=== PATIENT | male | born 1995 | race Caucasian/White ===

== ENCOUNTER 2025-09-13 21:06 | Inpatient (IN) | payer BC, SELFPAY ==
[2025-09-13 21:08] VITALS: BP 117/75; PULSE 136; RESP 20; TEMP 37.2; O2SAT 95; BMI 29.9
[2025-09-13] MEDS: 0.9% Normal Saline (1000mL) 1,000 ML 999 ML IV ×2 (22:28→23:27)
[2025-09-13 22:45] LABS: Hematocrit 49.5 % (40-54); Hemoglobin 17.3 g/dL (13.0-16.5); Immature Granulocytes Count 0.050 X10^3/uL (0.0-0.0); Mean Corp Hgb Conc 34.9 g/dL (32-36); Mean Corpuscular Volume 84.6 fL (80-94); Mean Platelet Vol. 11.7 fl (6.2-12.0); NRBC Flagged by Analyzer 0 % (0-5); POSITIVE DIFFERENTIAL YES; Platelet Count 275 K/mm3 (150-450); RBC Distribution Width CV 12.0 % (11.6-14.6); RBC Distribution Width SD 37.0 fl (35.1-43.9); Red Blood Count 5.85 M/mm3 (4.6-6.2); White Blood Count 13.9 K/mm3 (4.4-11.0)
[2025-09-13 22:54] LABS: AST(SGOT) 31 U/L (<=37); Alanine Aminotransfer ALT/SGPT 38 U/L (<=46); Albumin, Serum 4.2 g/dL (3.5-5.0); Alkaline Phosphatase 56 U/L (40-129); Anion Gap 15 (5-15); BUN 24 mg/dL (4-19); BUN/Creat Ratio 13.3 RATIO (10-20); Bilirubin, Direct 0.44 mg/dL (0.00-0.30); Calcium,Total 8.9 mg/dL (7.6-11.0); Carbon Dioxide 17.4 mmol/L (21.0-32.0); Chloride 102 mmol/L (98-108); Estimated Creatinine Clearance 60.01 ml/min (50-250); Globulin 2.6 g/dL (2.2-4.2); Glucose 138 mg/dL (70-99); Lipase 16 U/L (13-75); Magnesium 1.3 mg/dL (1.5-2.2); Potassium 3.8 mmol/L (3.3-5.1); Procalcitonin 18.60 ng/mL (<=0.10)
--- NOTE | 2025-09-13 23:09 | EX.ED.DYSGE1 ---
HPI History of Present Illness Chief Complaint: Diarrhea Informant: patient and family Narrative Narrative: This is patient is a 29-year-old male with past medical history of adrenal insufficiency. He states in the last 24 hours he has had subjective fevers and chills with generalized abdominal discomfort and multiple bouts of watery diarrhea. He denies any known sick contact. He denies any recent antibiotic use travel out of the country or exposure to livestock. He states he took stress dose steroids today because he was feeling unwell with symptoms of not improved and secondary to this he comes in for evaluation. [facility] Medical History Growth hormone deficiency Asthma Adrenal insufficiency Allergy/AdvReac Type Severity Reaction Status Date / Time Fish Containing Products Allergy Food Verified 09/13/25 21:25 Allergy milk (dairy) Allergy Food Verified 09/13/25 21:25 Allergy nut - unspecified (nuts) Allergy Food Verified 09/13/25 21: Allergy shellfish derived Allergy Hives Verified 09/13/25 21:25 Social History Smoking Status: Never smoker ROS [facility] ED Constitutional Constitutional ED: Reports chills, fever(s) and subjective Eyes Eyes: Denies change in vision ENT ENT ED: Denies sore throat Cardiovascular Cardiovascular: Denies chest pain Respiratory/Chest Respiratory/Chest: Denies cough or dyspnea Gastrointestinal Gastrointestinal: Reports abdominal pain, diarrhea, nausea and vomiting Genitourinary Genitourinary ED: Denies dysuria Musculoskeletal Musculoskeletal: Reports myalgias Integumentary Denies rash Neurologic Neurologic: Denies headache(s) Hematologic/Lymphatic Hematologic/Lymphatic: Denies easy bleeding or easy bruising EXAM Physical Exam Const Vital Signs: 09/13/25 21:08 09/13/25 23:28 Temperature 98.9 F Temperature Source Temporal Pulse Rate 136 H 125 H Respiratory Rate 20 H 16 Blood Pressure 117/75 113/65 Blood Pressure Mean 89 81 Pulse Ox 95 100 Oxygen Delivery Method Room Air Positive well nourished and well developed General Appearance ED: well developed; Negative for pallor HEENT Reports dry mucous membranes HEENT Narrative: Normocephalic atraumatic No tongue or lip swelling no oral lesions no airway edema or compromise No secondary findings in the posterior pharynx to suggest infection Mucous membranes are dry and tacky Mouth ED: Yes dry mucous membranes Mouth: dry mucous membranes Eyes PERRL and EOMs intact bilaterally General Eye ED: Negative for scleral icterus Neck supple Neck Narrative: No nuchal rigidity or meningeal signs Resp normal respiratory effort and clear to auscultation bilaterally Cardio regular rhythm Rate: tachycardic and other Other Details: Tachycardic rate irregular rhythm Radial and carotid pulses equal and symmetric GI non-distended and no masses GI Narrative: Soft and nondistended with hyperactive bowel sounds. There is mild diffuse pain with palpation without voluntary guarding or rigidity or pulsatile mass No peritoneal signs Auscultation: hyperactive bowel sounds Palpation: soft Extremity normal to inspection Neuro oriented x3, CN's II-XII intact bilaterally and no sensory deficits noted Sensorium / Orientation: alert Motor Exam: strength 5/5 throughout Psych mental status grossly normal Skin no rashes or lesions noted and No skin turgor normal Skin Narrative: Skin turgor is elevated consistent with dehydration General Skin Exam: Negative for jaundice or pallor MDM MDM MDM Narrative Medical decision making narrative: Patient arrived to ER afebrile but tachycardic. History and exam is most consistent with a viral stomach infection such as norovirus or rotavirus. He does not have any risk factors for cluster B difficile Salmonella Shigella or E. coli and he is only had symptoms for roughly 24 hours so I feel no need for stool study at this time. In order to assess for acute blood loss anemia versus acute kidney injury versus Ruth abnormality biliary colic or pancreatitis I did like to perform basic laboratory studies. Patient's white count is elevated at 13.9 and neutrophil count is elevated 12.6. This is most likely stress response and inflammation secondary to the virus. His procalcitonin however is elevated and with this there is concern for potential developing internal infection so I do feel that a CT scan of the abdomen pelvis is warranted at this time. Lipase is normal going against pancreatitis and there are no clinically significant electrolyte changes. His creatinine is 1.82 consistent with dehydration. At this time he has had 2 L of IV fluid morphine and Zofran and does report feeling better. Abdomen remains soft and nonsurgical. However because of the elevated procalcitonin the CT scan with oral contrast only is pending and therefore he will be signed out to the night physician Dr. Prado pending this result History & Record Review Discussion w/independent historian: Patient and Family Lab Data Attestation: I reviewed the patient's lab results. Labs: Laboratory Results - last 24 hr 09/13/25 21:44 WBC 13.9 H RBC 5.85 Hgb 17.3 H Hct 49.5 MCV 84.6 MCH 29.6 MCHC 34.9 RDW Std Deviation 37.0 RDW Coeff of Fatoumata 12.0 Plt Count 275 MPV 11.7 Immature Gran % (Auto) 0.400 Neut % (Auto) 90.2 H Lymph % (Auto) 2.9 L [place] % (Auto) 4.4 Eos % (Auto) 1.4 Baso % (Auto) 0.7 Absolute Neuts (auto) 12.6 H Absolute Lymphs (auto) 0.41 L Nucleated RBC % 0 Sodium 134 Potassium 3.8 Chloride 102 Carbon Dioxide 17.4 L Anion Gap 15 BUN 24 H Creatinine 1.82 H Estim Creat Clear Calc 60.01 Est GFR (MDRD) Non-Af 52 L BUN/Creatinine Ratio 13.3 Glucose 138 H Calcium 8.9 Magnesium 1.3 L Total Bilirubin 0.98 Direct Bilirubin 0.44 H AST 31 ALT 38 Alkaline Phosphatase 56 Total Protein 6.8 Albumin 4.2 Globulin 2.6 Lipase 16 Procalcitonin 18.60 H Discharge Plan Triage Chief Complaint: Diarrhea ED Provider: Alfredo Elmore Dx/Rx/DC Orders Clinical Impression: Nausea vomiting and diarrhea, Dehydration Primary Care Provider: Care Physician,No Primary Referrals: Care Physician,No Primary [Primary Care Provider, Medical] Print Language: Faroese
[2025-09-13 23:28] VITALS: BP 113/65; PULSE 125; RESP 16; O2SAT 100
--- NOTE | 2025-09-13 23:34 | CT_ITS ---
PROCEDURE: ABDOMEN/PEL W ORAL CONT ONLY 09/14/2025 REASON FOR EXAM: ABD PAIN TECHNIQUE: Procedure Code: [id number] Modality: CT Procedure: ABDOMEN/PEL W ORAL CONT ONLY Noncontrast technique limits evaluation of the abdominal and pelvic viscera. Coronal and Sagittal reconstruction series were provided. One or more dose reduction techniques were used (e.g., Automated exposure control, adjustment of the mA and/or kV according to patient size, use of iterative reconstruction technique). RADIATION DOSE SUMMARY: CTDI Vol 13.71 mGy DLP :713.64 mGycm COMPARISON: none FINDINGS: Diffuse uniform wall thickening and edema with fluid dimension of the terminal ileum, caecum, ascending and proximal 2/3 of the transverse colon with mild surrounding fat stranding and associated prominent ileocolic and mesenteric lymph nodes, possibly inflammatory. Advise clinical and laboratory correlation. The appendix appears unremarkable. The stomach is unremarkable. Average sized liver showing homogenous parenchymal attenuation. No dilated intra or extra-hepatic biliary tracts. Gall bladder showing no radiodense calculi. Normal unenhanced appearance of the pancreas with clear surrounding fat planes. The unenhanced spleen, adrenal glands, aorta and IVC are unremarkable. Both kidneys are of average size and showing smooth outline with preserved parenchymal thickness. No renal calculi. No hydronephrosis. Distension of the urinary bladder showing no obvious masses. No obvious masses related to the pelvic viscera. Mild free pelvic fluid No free air. Scanned osseous structures show no osseous destruction. Scanned lung bases show left basal atelectatic changes. CT/Abdomen/Pel W ORAL Cont Only IMPRESSION: Diffuse uniform wall thickening and edema with fluid dimension of the terminal ileum, caecum, ascending and proximal 2/3 of the transverse colon with mild surrounding fat stranding and associated prominent i leocolic and mesenteric lymph nodes, possibly inflammatory. Advise clinical and laboratory correlation. Reading [facility]
[2025-09-14] VITALS (12 sets, daily range): BP systolic 110–130; BP diastolic 69–83; PULSE 108–153; RESP 15–33; TEMP 37.1–39.4; O2SAT 92–98; BMI 28.8
[2025-09-14] MEDS: 0.9% Normal Saline (1000mL) 1,000 ML 999 ML IV (04:08)
--- NOTE | 2025-09-14 04:39 | PCM.HP.STD ---
HPI - General General Date of Admission: 09/14/25 Date of Service: 09/14/25 Chief Complaint: Nausea/vomiting/diarrhea HPI Narrative LONNY ROLLINS, is a 29 M who presented to the emergency department [facility] on 09/13/2025 with chief complaint of intractable nausea with an episode of emesis and profuse watery diarrhea. Patient said no known sick contacts. He does have a history of adrenal insufficiency and is on hydrocortisone twice daily at baseline. He has had subjective fevers and chills, generalized body aches and abdominal discomfort with at least 3 bouts of watery diarrhea per hour. He has had no recent travel or antibiotic use. He did take an extra dose of steroids prior to coming in due to being ill but since he has not improved clinically presented to the emergency department. He states that his abdominal discomfort is hard to describe over the crampy in nature and intermittent. Vital signs on presentation showed temperature of 98.9, heart rate 136, respiratory 20, blood pressure is 117/75 and pulse ox was 94% on room air. CBC showed a leukocytosis with a white count of 13.9 and he does appear to be hemoconcentrated as his hemoglobin was 17.3. He does have a left shift with a 90.2% neutrophilia. Chemistry panel showed mild metabolic acidosis with a serum bicarb of 17.4, BUN of 24 with a serum creatinine 1.82 indicative of dehydration and BIENVENIDO, lactic acid was less than 1, magnesium of 1.3 and a mildly elevated direct bilirubin with a normal total bilirubin. Direct bilirubin was 0.44. Liver functions were normal. Lipase was 16. TSH was 0.635 and procalcitonin was 18.6. CT of the abdomen pelvis with oral contrast showed diffuse uniform wall thickening and edema and fluid distention of the terminal ileum, cecum, ascending and proximal two thirds of the transverse colon with mild surrounding fat stranding and associated prominent ileocolic and mesenteric lymph nodes that were thought to be inflammatory. In the emergency department he was treated with aggressive IV fluids, antiemetics and his heart rate remained elevated. Given his elevated procalcitonin ongoing tachycardia and diarrhea with his history of adrenal insufficiency inpatient status admission was pursued. He was started on vancomycin and Zosyn after cultures were obtained and oral vancomycin empirically for potential C. difficile infection. Stool studies were ordered and pending at the time of admission. [facility] Medical History (Updated 09/14/25 @ 05:[address] Yadi Yen, DO) Male pattern baldness Allergies GERD (gastroesophageal reflux disease) Eosinophilic esophagitis Growth hormone deficiency Asthma Adrenal insufficiency Home Medications ?Medication ?Instructions ?Recorded ?Last Taken ?Type cetirizine 10 mg tablet (24Hour 10 mg PO DAILY allergies 09/14/25 Unknown History Allergy) finasteride 1 mg tablet 1 mg PO DAILY urine flow 09/14/25 Unknown History fluticasone furoate 200 1 inh inhalation DAILY asthma 09/14/25 Unknown History mcg-vilanterol 25 mcg/dose inhalation powder (Breo Ellipta) hydrocortisone 5 mg tablet 5 mg PO 1400 adrenal insufficiency 09/14/25 Unknown History hydrocortisone 5 mg tablet 10 mg PO DAILY adrenal 09/14/25 Unknown History insufficiency minoxidil 2.5 mg tablet 1.25 mg PO DAILY hairloss 09/14/25 Unknown History mometasone 50 mcg/actuation nasal 4 spray intranasal DAILY allergies 09/14/25 Unknown History spray montelukast 10 mg tablet 10 mg PO QPM allergies 09/14/25 Unknown History pantoprazole 40 mg tablet,delayed 40 mg PO BID GERD 09/14/25 Unknown History release Allergy/AdvReac Type Severity Reaction Status Date / Time Fish Containing Products Allergy Food Verified 09/13/25 21:25 Allergy milk (dairy) Allergy Food Verified 09/13/25 21:25 Allergy nut - unspecified (nuts) Allergy Food Verified 09/13/25 21:25 Allergy shellfish derived Allergy Hives Verified 09/13/25 21:25 no significant family history no surgical history Social History (Updated 09/14/25 @ 05:[address] Yadi Yen, ) current occupational status: employed Smoking Status: Never smoker alcohol intake: never substance use type: does not use ROS Constitutional Constitutional: Reports anorexia, chills, fatigue, fever(s), malaise and weakness; Denies change in weight, night sweats or other Eyes Eyes: Denies blurry vision, change in eye color, change in vision, discharge from eye(s), double vision, erythema, eye pain, loss of vision or other ENT HEENT: Denies abnormal hearing, dysphagia, ear pain, epistaxis, headache(s), hearing loss, nasal congestion, nasal discharge, post nasal drip, sinus pressure, sore throat or other Cardiovascular Cardiovascular: Denies chest pain, claudication, dyspnea on exertion, edema, lightheadedness, orthopnea, palpitations, paroxysmal nocturnal dyspnea, rapid heart rate, syncope or other Respiratory/Chest Respiratory/Chest: Denies cough, dyspnea, excessive phlegm production, hemoptysis, productive cough, shortness of breath at rest, shortness of breath with exertion, wheezing or other Gastrointestinal Gastrointestinal: Reports abdominal pain, diarrhea, nausea and vomiting; Denies coffee ground emesis, constipation, dyspepsia, hematemesis, hematochezia, loose stools, melena or other Genitourinary Genitourinary: Denies burning urination, difficulty urinating, dysuria, hematuria, nocturia, urinary frequency, urinary hesitancy, urinary incontinence, urinary urgency or other Musculoskeletal Musculoskeletal: Reports myalgias; Denies arthralgias, back pain, joint pain, joint stiffness, joint swelling, neck pain or other Neurologic Neurologic: Denies abnormal gait, abnormal speech, confusion, disequilibrium, dizziness, focal weakness, headache(s), numbness, paresthesias, seizure-like activity, seizures, syncope, tingling, tremor(s) or other Psychiatric Psychiatric: Denies anxiety, depression, homicidal ideation, suicidal ideation or other Endocrine Endocrinology: Denies change in body appearance, cold intolerance, excessive sweating, heat intolerance, polydipsia, polyuria or other Hematologic/Lymphatic Hematologic/Lymphatic: Denies anemia, easy bleeding, easy bruising, lymphadenopathy or other Allergic/Immunologic Allergic/Immunologic: Reports rhinitis and asthma; Denies hives, eczemia or other Vital Signs Vital Signs Vital Signs: 09/13/25 21:08 09/13/25 23:28 09/14/25 01:29 Temperature 98.9 F Temperature Source Temporal Pulse Rate 136 H 125 H Respiratory Rate 20 H 16 Blood Pressure 117/75 113/65 Blood Pressure Mean 89 81 Pulse Ox 95 100 92 Oxygen Delivery Method Room Air 09/14/25 03:00 09/14/25 03:59 Temperature Temperature Source Pulse Rate 139 H 147 H Respiratory Rate 26 H 26 H Blood Pressure 111/69 110/70 Blood Pressure Mean 83 83 Pulse Ox 93 97 Oxygen Delivery Method Room Air Room Air Weight Weight: 81.737 kg Body Mass Index (BMI) 29.9 Physical Exam Const alert, oriented x3 and well nourished Constitutional Narrative: Obese, ill-appearing, young, white male, lying in bed, appears mild to moderately uncomfortable, appears mildly toxic, nursing and family at bedside General Appearance: cooperative HEENT normocephalic, head/scalp atraumatic and hearing grossly normal bilaterally; Negative for moist oral mucous membranes HEENT Narrative: Mucous membranes are moist, dentition is good, Mallampati is 3, no thrush Eyes EOMs intact bilaterally and conjunctivae normal Eyes Narrative: No scleral icterus Neck supple Neck Narrative: Trachea midline Resp normal respiratory effort, no retractions, no use of accessory muscles and clear to auscultation bilaterally Resp Narrative: Mild tachypnea Auscultation: Negative for rales, rhonchi or wheezes Cardio regular rhythm, S1 normal heart sound, S2 normal heart sound, no murmurs, no rub, no gallops and no clicks Cardio Narrative: Tachycardic GI normal to inspection, nondistended, normoactive bowel sounds and soft to palpation GI Narrative: Mild diffuse tenderness more noted at caudal abdomen Extremity no clubbing, cyanosis or edema Extremity Narrative: Pedal pulses are 2+ Neuro moves all extremities and no focal motor deficits Speech: speech normal Psych Negative for affect normal Psych Narrative: Affect is flat which is expected for current condition Results Lab / Micro Data 09/13/25 21:44 09/13/25 21:44 Labs: Laboratory Results - last 24 hr 09/13/25 21:44: WBC 13.9 H, RBC 5.85, Hgb 17.3 H, Hct 49.5, MCV 84.6, MCH 29.6, MCHC 34.9, RDW Std Deviation 37.0, RDW Coeff of Fatoumata 12.0, Plt Count 275, MPV 11.7, Immature Gran % (Auto) 0.400, Neut % (Auto) 90.2 H, Lymph % (Auto) 2.9 L, [place] % (Auto) 4.4, Eos % (Auto) 1.4, Baso % (Auto) 0.7, Absolute Neuts (auto) 12.6 H, Absolute Lymphs (auto) 0.41 L, Nucleated RBC % 0, Sodium 134, Potassium 3.8, Chloride 102, Carbon Dioxide 17.4 L, Anion Gap 15, BUN 24 H, Creatinine 1.82 H, Estim Creat Clear Calc 60.01, Est GFR (MDRD) Non-Af 52 L, BUN/Creatinine Ratio 13.3, Glucose 138 H, Calcium 8.9, Magnesium 1.3 L, Total Bilirubin 0.98, Direct Bilirubin 0.44 H, AST 31, ALT 38, Alkaline Phosphatase 56, Total Protein 6.8, Albumin 4.2, Globulin 2.6, Lipase 16, Procalcitonin 18.60 H Imaging Radiology Impression Abdomen CT 09/13/25 23:34 IMPRESSION: Diffuse uniform wall thickening and edema with fluid dimension of the terminal ileum, caecum, ascending and proximal 2/3 of the transverse colon with mild surrounding fat stranding and associated prominent ileocolic and mesenteric lymph nodes, possibly inflammatory. Advise clinical and laboratory correlation. Reading [facility] Assessment & Plan Assessment/Plan (1) Nausea vomiting and diarrhea: (2) Dehydration: (3) BIENVENIDO (acute kidney injury): (4) Hypomagnesemia: (5) Metabolic acidosis: (6) Elevated procalcitonin: (7) Tachycardia: (8) Leukocytosis: PLAN: Plan Nausea/vomiting/diarrhea/abdominal pain - Has significant inflammatory changes in distal small bowel and colon - Check C. difficile and enteric panel - Will empirically treat for C. difficile at this time given clinical presentation and discontinue if negative - IV fluids x 3 L at 150 cc/h - Antiemetics as ordered - IV morphine for pain - Protonix 40 mg IV twice daily - Clear liquids for now and plan to advance diet as tolerated Fever/elevated procalcitonin/leukocytosis - Leukocytosis appears to be related to contraction as he is markedly dehydrated on presentation and with increased steroid use I suspect this will trend up - Procalcitonin was markedly elevated - Cultures are pending - No significant infectious process identified on CT of his abdomen pelvis - Continue Zosyn IV and oral vancomycin - Discontinue/narrow antibiotics as able Hypomagnesemia - 2 g mag bolus given - Recheck lab in a.m. BIENVENIDO secondary to severe dehydration - Aggressive volume resuscitation - Continue IV fluids on the floor and 150 cc/h with LR x 3 L - Avoid nephrotoxins as able - Repeat lab in a.m. Non-anion gap metabolic acidosis - Likely related to severe diarrhea and BIENVENIDO - Monitor with lab - Currently only mild Tachycardia - Significant but sinus - Appears to be reactive - IV fluids as ordered - Avoid rate controlling medications as this is purposeful tachycardia and appropriate for current condition Adrenal insufficiency - Patient is on hydrocortisone at home with 5 mg in the afternoon and 10 mg in the morning -Stress dose should be twice this - Will treat with stress dose steroids 25 mg Solu-Cortef twice daily - Monitor clinically - Currently does not appear to be in crisis Eosinophilic esophagitis/GERD - Continue budesonide - IV PPI Multiple food allergies - Will need to be conscious of this when diet is able to be initiated Asthma/allergies - Continue home inhalers - Continue home Singulair 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
--- OUTSIDE RECORDS SUMMARY | 2025-09-14 05:02 | XMS RPT_ITS | CCD ---
Author Organization [facility] Care Team Providers Care Ophthalmic Surgeon Name Role Phone Unavailable Primary Care Provider ENMANUEL Ross Primary Care Unavailable Allergies Allergy Classification Reported Allergen(s) Allergy Type Date of Onset Reaction(s) Facility (1 source) Banana Extract Drug Allergy 7 [place] (1 source) cow milk allergenic extract Drug Allergy [place] ([place] source) egg extract Drug Allergy [place] ([place]) Fish-Derived Products Propensity to adverse reactions to drug [place] ([place] source) Peanut-Containin g Drug Products Propensity to adverse reactions to drug [place] ([place] source) Pork-Derived Products Propensity to adverse reactions to drug 3 [place] (1 source[place] Poultry Meal Propensity to adverse reactions to drug [place] ([place] source) Soybean-Containi ng Drug Products Propensity to adverse reactions to drug 7 [place] (1 source) ALLERGIES NOT ON FILE; Translations: [ALLERGIES NOT ON FILE] Propensity to adverse reactions (disorder) [facility] Medications Current Medications Medication Drug Class(es) Dates Sig (Normalized) Sig (Original) cetirizine hydrochloride 10 mg oral tablet (1 source) Histamine-1 Receptor Antagonist take 1 tablet by mouth once daily cetirizine (ZYRTEC) 10 MG tablet Take 10 mg by mouth daily 0 Active Hydrocortisone (1 source) Corticosteroid HYDROCORTISONE P O Take by mouth 0 Active Completed/Discontinued Medications Medication Drug Class(es) Dates Sig (Normalized) Sig (Original) bacitracin 0.5 unt/mg topical ointment (1 source) Start: 06-13-2020 End: 06-13-2020 bacitracin zinc ointment 10 ml lidocaine hydrochloride 10 mg/ml injection (1 source) Antiarrhythmic, Amide Local Anesthetic Start: 06-13-2020 End: 06-13-2020 lidocaine 1 % injection 20 mL Problems Problem Classification Problem Date Documented Date Episodic/Chronic Diabetes mellitus without complication (2 sources) Type 2 diabetes mellitus without complications; Translations: [Type 2 diabetes mellitus without complications (Multi)] Onset: 05-23-2024 Chronic Nutritional deficiencies (2 sources) Vitamin D deficiency, unspecified; Translations: [Vitamin D deficiency, unspecified] Onset: 05-23-2024 Chronic Open wounds of head; neck; and trunk (1 source) Facial laceration ; Translations: [Facial laceration, initial encounter] Episodic Thyroid disorders (2 sources) Hypothyroidism, unspecified; Translations: [Hypothyroidism, unspecified] Onset: 05-23-2024 Chronic Results Test Name Value Interpretation Reference Range Facility Comprehensive metabolic 2000 panelon 05-23-2024 Albumin BCP dye [Mass/Vol] 4.6 g/dL Normal 3.4-5.0 [facility] Comment on above: Performed By: #### 2 4323-8 #### VINCENZO Rodriguez ([id number]) [facility] ([facility]) [id number] [place] [address] ALP [Catalytic activity/Vol] 59 U/L Normal 33-120 [facility] Comment on above: Performed By: #### 2 4323-8 #### VINCENZO Rodriguez ([id number]) [facility]) [id number] [place] [address] ALT With P-5'-P [Catalytic activity/Vol] 34 U/L Normal 10-52 [facility] Comment on above: Result Comment: Lori ents treated with Sulfasalazine may generate falsely decreased results for ALT. Performed By: #### 2 4323-8 #### VINCENZO Rodriguez ([id number]) [facility]) [address] [place] [address] Anion gap [Moles/Vol] 11 mmol/L Normal 10-20 [facility] Comment on above: Performed By: #### 2 4323-8 #### VINCENZO Rodriguez ([id number]) [facility]) [id number] [place] [address]67 AST With P-5'-P [Catalytic activity/Vol] 23 U/L Normal 9-39 [facility] Comment on above: Performed By: #### 2 4323-8 #### VINCENZO Rodriguez ([id number]) [facility]) [id number] [place] [address] Bilirubin [Mass/Vol] 1.1 mg/dL Normal 0.0-1.2 [facility] Comment on above: Performed By: #### 2 4323-8 #### VINCENZO Rodriguez ([id number]) [facility]) [address] [place] [address] Calcium [Mass/Vol] 9.6 mg/dL Normal 8.6-10.[address] [facility] Comment on above: Performed By: #### 2 4323-8 #### VINCENZO Rodriguez ([id number]) [facility]) [id number] [place] [address] Chloride [Moles/Vol] 105 mmol/L Normal 98-107 [facility] Comment on above: Performed By: #### 2 4323-8 #### VINCENZO ZAVALETA L ([id number]) [facility]) [address] [place] [address]13 CO2 [Moles/Vol] 28 mmol/L Normal 21-32 [facility] Comment on above: Performed By: #### 2 4323-8 #### VINCENZO Rodriguez ([id number]) [facility]) [address] [place] [address]98 Creatinine [Mass/Vol] 0.91 mg/dL Normal 0.50-1.30 [facility] Comment on above: Performed By: #### 2 4323-8 #### VINCENZO ZAVALETA L ([id number]) [facility]) [address] [place] [address] [place] [address] GFR/1.73 sq M.predicted MDRD (S/P/Bld) [Vol rate/Area] mL/min/{1.73_m2} Normal >60 [facility] Comment on above: Result Comment: Calc ulations of estimated GFR are performed using the 2020 CKD-EPI Study Refit equation without the race variable for the IDMS-Traceable creatinine methods. https://jasn.asnjournals.org/content/early//ASN.96888521 88 Performed By: #### 2 4323-8 #### VINCENZO WARRENER L ([id number]) [facility]) [address] [place] [address] Glucose [Mass/Vol] 113 mg/dL High 74-[address] [facility] Comment on above: Performed By: #### 2 4323-8 #### VINCENZO BAHENAMOTZER L ([id number]) [facility]) [address] [place] [address] Potassium [Moles/Vol] 3.9 mmol/L Normal 3.5-5.3 [facility] Comment on above: Performed By: #### 2 4323-8 #### VINCENZO BAHENAMOTZER L ([id number]) [facility] [address] [place] [address] Protein [Mass/Vol] 6.8 g/dL Normal 6.4-8.[address] [facility] Comment on above: Performed By: #### 2 4323-8 #### VINCENZO SCHMOTZER L ([id number]) [facility] [address] [place] [address] Sodium [Moles/Vol] 140 mmol/L Normal 136-[address] [facility] Comment on above: Performed By: #### 2 4323-8 #### VINCENZO BAHENAMOTZER L ([id number]) [facility] [address] [place] [address] Urea nitrogen [Mass/Vol] 7 mg/dL Normal 6-23 [facility] Comment on above: Performed By: #### 2 4323-8 #### VINCENZO Rodriguez ([id number]) [facility] [address] [place] [address] Thyrotropinon 05-23-2024 TSH Qn 0.98 m[IU]/L Normal 0.44-3.98 [facility] Comment on above: Order Comment: TSH t esting is performed using different testing methodology at [facility] than at [facility]. Direct result comparisons should only be made within the same method. Performed By: #### 3 016-3 #### VINCENZO Rodriguez ([id number]) [facility]) [address] [place] [address] 63058 Thyroxine.freeon 05-23-2024 Free T4 [Mass/Vol] 1.28 ng/dL Normal 0.78-1.[address] [facility] Comment on above: Order Comment: Thyro xine Free testing is performed using different testing methodology at [facility] than at [facility]. Direct result comparisons should only be made within the same method. Performed By: #### 3 024-7 #### VINCENZO Rodriguez ([id number]) [facility]) [address] [place] [address] COMPREHENSIVE PANELon 2022 Albumin [Mass/Vol] 4.4 g/dL Normal 3.4 - 5.0 [facility] Comment on above: Performed By: #### V TDOH #### [facility] [address] [place] [address] ALP [Catalytic activity/Vol] 52 U/L Normal 33 - 120 [facility] [place] Comment on above: Performed By: #### V TDOH #### [facility] [address] [place] [address] ALT [Catalytic activity/Vol] 20 U/L Normal 10 - 52 [facility] [place] Comment on above: Result Comment: Lori ents treated with Sulfasalazine may generate falsely decreased results for ALT. Performed By: #### V TDOH #### [facility] [address] [place] [address] Anion gap [Moles/Vol] 15 mmol/L Normal 10 - 20 [facility] [place] Comment on above: Performed By: #### V TDOH #### [facility] [address] [place] [address] AST [Catalytic activity/Vol] 18 U/L Normal 9 - 39 [facility] [place] Comment on above: Performed By: #### V TDOH #### [facility] [address] [place] [address] Bilirubin [Mass/Vol] 0.9 mg/dL Normal 0.0 - 1.2 [facility] [place] Comment on above: Performed By: #### V TDOH #### [facility] [address] [place] [address] Calcium [Mass/Vol] 9.6 mg/dL Normal 8.6 - 10.6 [facility] Comment on above: Performed By: #### V TDOH #### [facility] [address] [place] [address] Chloride [Moles/Vol] 107 mmol/L Normal 98 - 107 [facility] [place] Comment on above: Performed By: #### V TDOH #### [facility] [address] [place] [address] Creatinine [Mass/Vol] 1.01 mg/dL Normal 0.50 - 1.30 [facility] [place] Comment on above: Performed By: #### V TDOH #### [facility] [address] [place] [address] eGFR MALE >90 Normal >90 [facility] [place] Comment on above: Result Comment: CALC ULATIONS OF ESTIMATED GFR ARE PERFORMED USING THE 2020 CKD-EPI STUDY REFIT EQUATION WITHOUT THE RACE VARIABLE FOR THE IDMS-TRACEABLE CREATININE METHODS. https://jasn.asnjournals.org/content//ASN.88864132 88 Performed By: #### V TDOH #### [facility] [address] [place] [address] Glucose [Mass/Vol] 74 mg/dL Normal 74 - 99 [facility] Comment on above: Performed By: #### V TDOH #### [facility] [address] [place] [address] HCO3 (Bld) [Moles/Vol] 25 mmol/L Normal 21 - 32 [facility] [place] Comment on above: Performed By: #### V TDOH #### [facility] [address] [place] [address] Potassium [Moles/Vol] 3.3 mmol/L Low 3.5 - 5.3 [facility] [place] Comment on above: Performed By: #### V TDOH #### [facility] [address] [place] [address] Protein [Mass/Vol] 6.6 g/dL Normal 6.4 - 8.2 [facility] Comment on above: Performed By: #### V TDOH #### [facility] [address] [place] [address] Sodium [Moles/Vol] 144 mmol/L Normal 136 - 145 [facility] Comment on above: Performed By: #### V TDOH #### [facility] [address] [place] [address] Urea nitrogen [Mass/Vol] 9 mg/dL Normal 6 - 23 [facility] [place] Comment on above: Performed By: #### V TDOH #### [facility] [address] [place] [address] VITAMIN D, 25-HYDROXYon VITAMIN D, 25-HYDROXY 56 ng/mL Normal [facility] [place] Comment on above: Result Comment: . DEFICIENCY: < 20 NG/ML INSUFFICIENCY: 20-29 NG/ML SUFFICIENCY: 30-100 NG/ML THIS ASSAY ACCURATELY QUANTIFIES THE SUM OF VITAMIN D3, 25-HYDROXY AND VIT D2,25-HYDROXY. Performed By: #### V TDOH #### [facility] [address] [place] [address] TESTOST,FREE AND TOTALon TESTOSTERONE TOT.LC/MS/MS 799 ng/dL Normal 250-1100 [facility] [place] Comment on above: Result Comment: For additional information, please refer to http://education.Xand.[employer]/faq/ UilwfRskysbuimoejDKJURLCOJ470 (This link is being provided for informational/ educational purposes only.) This test was developed and its analytical performance characteristics have been determined by [facility] [place], [place]. It has not been cleared or approved by the U.S. Food and Drug Administration. This assay has been validated pursuant to the CLIA regulations and is used for clinical purposes. Performed By: #### T ESFT #### [facility] [address] [place], [place] TESTOSTERONE,FREE 169.4 pg/mL High 35.0-155.0 [facility] Comment on above: Result Comment: This test was developed and its analytical performance characteristics have been determined by [employer] [place] [place]. It has not been cleared or approved by the U.S. Food and Drug Administration. This assay has been validated pursuant to the CLIA regulations and is used for clinical purposes. Performed By: #### T ESFT #### [facility] [address] [place], [place] ACTHon 01-07-2023 ACTH 9.8 pg/mL Normal 7.2-63.3 [facility] [place] Comment on above: Result Comment: INTE RPRETIVE INFORMATION: Adrenocorticotropic Hormone Reference interval based on samples collected between 7 a.m. and 10 a.m. No reference intervals established for p.m. collections. Pediatric reference values are the same as adults (Acta Paediatr Scand 1981;70:341-345). This assay measures intact ACTH 1-39; some types of synthetic ACTH and ACTH fragments are not detected by this assay. Performed By: [facility] [address] [place] [address] Platform Attendant: Zak Oliver MD, PhD Performed By: #### A CTH #### [address] [address] GROWTH HORMONEon 01-07-2023 GROWTH HORMONE <0.05 Low 0.05-3.00 [facility] Comment on above: Result Comment: Perf ormed By: [facility] [address] [place] [address] Platform Attendant: Zak Oliver MD, PhD Performed By: #### G H #### [facility] [address] [place] [address] [place] [address] INSULIN-LIKE GROWTH FACTOR 1 + Z-SCOREon 01-07-2023 IGF 1 Z SCORE CALCULATION 1.4 Normal [facility] [place] Comment on above: Result Comment: INTE RPRETIVE INFORMATION: IGF 1 Z-SCORE CALCULATION A Z score is the number of standard deviations a given result is above (positive score) or below (negative score) the age- and sex-adjusted population mean. Results that are within the IGF-1 reference interval will have a Z score between -2.0 and +2.0. Performed By: [facility] [address] [place] [address] Platform Attendant: Zak Oliver MD, PhD Performed By: #### I LGF1 #### [address] [address] INSULIN-LIKE GROWTH FACTOR 274 ng/mL Normal 99-283 [facility] [place] Comment on above: Performed By: #### I LGF1 #### [address] [address] COMPREHENSIVE PANELon 2022 Albumin [Mass/Vol] 4.6 g/dL Normal 3.4 - 5.0 [facility] Comment on above: Performed By: #### V TDOH #### [facility] [address] [place] [address] ALP [Catalytic activity/Vol] 56 U/L Normal 33 - 120 [facility] [place] Comment on above: Performed By: #### V TDOH #### [place] [address] [place] [address] ALT [Catalytic activity/Vol] 16 U/L Normal 10 - 52 [facility] [place] Comment on above: Result Comment: Lori ents treated with Sulfasalazine may generate falsely decreased results for ALT. Performed By: #### V TDOH #### [facility] [address] [place] [address] Anion gap [Moles/Vol] 13 mmol/L Normal 10 - 20 [facility] [place] Comment on above: Performed By: #### V TDOH #### [facility] [address] [place] [address] AST [Catalytic activity/Vol] 18 U/L Normal 9 - 39 [facility] [place] Comment on above: Performed By: #### V TDOH #### [facility] [address] [place] [address] Bilirubin [Mass/Vol] 1.0 mg/dL Normal 0.0 - 1.2 [facility] [place] Comment on above: Performed By: #### V TDOH #### [facility] [address] [place] [address] Calcium [Mass/Vol] 9.9 mg/dL Normal 8.6 - 10.6 [facility] Comment on above: Performed By: #### V TDOH #### [facility] [address] [place] [address] Chloride [Moles/Vol] 104 mmol/L Normal 98 - 107 [facility] [place] Comment on above: Performed By: #### V TDOH #### [facility] [address] [place] [address] Creatinine [Mass/Vol] 1.01 mg/dL Normal 0.50 - 1.30 [facility] [place] Comment on above: Performed By: #### V TDOH #### [facility] [address] [place] [address] eGFR MALE >90 Normal >90 [facility] [place] Comment on above: Result Comment: CALC ULATIONS OF ESTIMATED GFR ARE PERFORMED USING THE 2020 CKD-EPI STUDY REFIT EQUATION WITHOUT THE RACE VARIABLE FOR THE IDMS-TRACEABLE CREATININE METHODS. https://jasn.asnjournals.org/content//ASN.21971070 88 Performed By: #### V TDOH #### [facility] [address] [place] [address] Glucose [Mass/Vol] 77 mg/dL Normal 74 - 99 [facility] Comment on above: Performed By: #### V TDOH #### [facility] [address] [place] [address] HCO3 (Bld) [Moles/Vol] 30 mmol/L Normal 21 - 32 [facility] [place] Comment on above: Performed By: #### V TDOH #### [facility] [address] [place] [address] Potassium [Moles/Vol] 3.6 mmol/L Normal 3.5 - 5.3 [facility] [place] Comment on above: Performed By: #### V TDOH #### [facility] [address] [place] [address] Protein [Mass/Vol] 6.6 g/dL Normal 6.4 - 8.2 [facility] Comment on above: Performed By: #### V TDOH #### [facility] [address] [place] [address] Sodium [Moles/Vol] 143 mmol/L Normal 136 - 145 [facility] Comment on above: Performed By: #### V TDOH #### [facility] [address] [place] [address] Urea nitrogen [Mass/Vol] 8 mg/dL Normal 6 - 23 [facility] [place] Comment on above: Performed By: #### V TDOH #### [facility] [address] [place] [address] CORTISOL,UNSPECIFIEDon 01-05 CORTISOL,UNSPECIFIE D 1.5 ug/dL Low 2.5 - 20.0 [facility] [place] Comment on above: Performed By: #### V TDOH #### [facility] [address] [place] [address] FSH + LHon 01-05-2023 FOLLICLE STIM. HORMONE 2.4 IU/L Normal [facility] [place] Comment on above: Result Comment: REF VALUES FOLLICULAR 2-12 MID-CYCLE 12-25 LUTEAL PHASE 2-12 MENOPAUSE 30-150 PREPUBERTY 50% ADULT ADULT MALE 2-10 INFANTS 0-1 Performed By: #### F SHLH #### [facility] [address] [place] [address] LUTEINIZING HORMONE 4.4 IU/L Normal [facility] Comment on above: Result Comment: REF VALUES FOLLICULAR PHASE 1.9-12.5 MID-CYCLE 8.7-76.3 LUTEAL PHASE 0.5-16.9 POST MENOPAUSE 5.0-55.2 CHILDREN 0- 6.0 ADULT MALE 18-70 1.5- 9.3 ADULT MALE >70 3.1-34.6 Performed By: #### F SHL #### [facility] [address] [place] [address] LIPID PANEL (CORONARY RISK 2 )on 01-05-2023 Cholesterol [Mass/Vol] 121 mg/dL Normal 0 - 199 [facility] [place] Comment on above: Result Comment: . AGE DESIRABLE BORDERLINE HIGH HIGH 0-19 Y 0 - 169 170 - 199 >/= 200 20-24 Y 0 - 189 190 - 224 >/= 225 >24 Y 0 - 199 200 - 239 >/= 240 All ranges are based on fasting samples. Specific therapeutic targets will vary based on patient-specific cardiac risk. . Pediatric guidelines reference:Pediatrics 2011, 128(S5). Adult guidelines reference: NCEP ATPIII Guidelines, LEONARD 2001, 258:2486-97 . Venipuncture immediately after or during the administration of Metamizole may lead to falsely low results. Testing should be performed immediately prior to Metamizole dosing. Performed By: #### V TDOH #### [facility] [address] [place] [address] Cholesterol in HDL [Mass/Vol] 48.0 mg/dL Normal [facility] [place] Comment on above: Result Comment: . AGE VERY LOW LOW NORMAL HIGH 0-19 Y < 35 < 40 40-45 ---- 20-24 Y ---- < 40 >45 ---- >24 Y ---- < 40 40-60 >60 . Performed By: #### V TDOH #### [facility] [address] [place] [address] Cholesterol in LDL [Mass/Vol] 62 mg/dL Normal 0 - 119 [facility] [place] Comment on above: Result Comment: . NEAR BORD AGE DESIRABLE OPTIMAL HIGH HIGH VERY HIGH 0-19 Y 0 - 109 --- 110-129 >/= 130 ---- 20-24 Y 0 - 119 --- 120-159 >/= 160 ---- >24 Y 0 - 99 100-129 130-159 160-189 >/=190 . Performed By: #### V TDOH #### [facility] [address] [place] [address] Cholesterol in VLDL [Mass/Vol] 11 mg/dL Normal 0 - 40 [facility] [place] Comment on above: Performed By: #### V TDOH #### [facility] [address] [place] [address] Cholesterol.total/C holesterol in HDL [Mass ratio] 2.5 {ratio} Normal [facility] [place] Comment on above: Result Comment: REF VALUES DESIRABLE < 3.4 HIGH RISK > 5.0 Performed By: #### V TDOH #### [facility] [address] [place] [address] Triglyceride [Mass/Vol] 56 mg/dL Normal 0 - 149 [facility] [place] Comment on above: Result Comment: . AGE DESIRABLE BORDERLINE HIGH HIGH VERY HIGH 0 D-90 D 19 - 174 ---- ---- ---- 91 D- 9 Y 0 - 74 75 - 99 >/= 100 ---- 10-19 Y 0 - 89 90 - 129 >/= 130 ---- 20-24 Y 0 - 114 115 - 149 >/= 150 ---- >24 Y 0 - 149 150 - 199 200- 499 >/= 500 . Venipuncture immediately after or during the administration of Metamizole may lead to falsely low results. Testing should be performed immediately prior to Metamizole dosing. Performed By: #### V TDOH #### [facility] [address] [place] [address] PROLACTINon 01-05-2023 PROLACTIN 14.2 ug/L Normal 2.0 - 18.0 [facility] [place] Comment on above: Performed By: #### V TDOH #### [facility] [address] [place] [address] THYROXINE,FREEon 01-05-2023 THYROXINE,FREE 1.21 ng/dL Normal 0.78 - 1.48 [facility] Comment on above: Result Comment: Thyr oxine Free testing is performed using different testing methodology at [facility] than at other [facility]. Direct result comparisons should only be made within the same method. Performed By: #### T 4FRE #### [facility] [address] [place] [address] TSHon 01-05-2023 TSH Qn 1.22 m[IU]/L Normal 0.44 - 3.98 [facility] Comment on above: Result Comment: TSH testing is performed using different testing methodology at [facility] than at other [facility]. Direct result comparisons should only be made within the same method. Performed By: #### T SH2 #### [facility] [address] [place] [address] VITAMIN D, 25-HYDROXYon VITAMIN D, 25-HYDROXY 63 ng/mL Normal [facility] [facility], [place] Comment on above: Result Comment: . DEFICIENCY: < 20 NG/ML INSUFFICIENCY: 20-29 NG/ML SUFFICIENCY: 30-100 NG/ML THIS ASSAY ACCURATELY QUANTIFIES THE SUM OF VITAMIN D3, 25-HYDROXY AND VIT D2,25-HYDROXY. Performed By: #### V TDOH #### [facility] [address] [place] [address] HEMOGLOBIN A1Con 01-04-2023 Glucose [Mass/Vol] 91 mg/dL Normal [facility] Comment on above: Performed By: #### H BA1E #### [facility] [address] [place] [address] HbA1c (Bld) [Mass fraction] 4.8 % Normal [facility], [place] Comment on above: Result Comment: Diag nosis of Diabetes-Adults Non-Diabetic: < or = 5.6% Increased risk for developing diabetes: 5.7-6.4% Diagnostic of diabetes: > or = 6.5% . Monitoring of Diabetes Age (y) Therapeutic Goal (%) Adults: >18 <7.0 Pediatrics: 13-18 <7.5 7-12 <8.0 0- 6 7.5-8.5 [employer] [place] [employer]. Diabetes Care 33(S1), Nov 2009. Performed By: #### H BA1E #### [facility] [address] [place] [address] CNCOon 10-18-2021 CNCO Letter Text Normal [facility] Lac Repairon 06-13-2020 Donna Allen MD 06/13/2020 9:39 PM Lac Repair Date/Time: 06/13/2020 9:37 PM Performed by: Donna Allen MD Authorized by: Donna Allen MD Consent: Consent obtained: Verbal Consent given by: Patient Risks discussed: Pain Anesthesia (see MAR for exact dosages): Anesthesia method: Local infiltration Local anesthetic: Lidocaine 1% w/o epi Laceration details: Location: Neck Neck location: L anterior Length (cm): 5 Depth (mm): 3 Repair type: Repair type: Simple Pre-procedure details: Preparation: Patient was prepped and draped in usual sterile fashion Exploration: Hemostasis achieved with: Direct pressure Wound exploration: entire depth of wound probed and visualized Contaminated: no Treatment: Area cleansed with: Betadine Amount of cleaning: Standard Irrigation solution: Sterile water Irrigation volume: 50 Irrigation method: Pressure wash Visualized foreign bodies/material removed: no Skin repair: Repair method: Sutures Suture size: 5-0 Suture material: Prolene Number of sutures: 7 Approximation: Approximation: Close Post-procedure details: Dressing: Antibiotic ointment Patient tolerance of procedure: Tolerated well, no immediate complications [place], [place] Testosterone, Tot/Fron 02-18 Testosterone [Mass/Vol] 521 ng/dL Normal 240-950 [facility] Comment on above: Performed By: #### C BCDIF, DHEAS, FSH, FT4, FREET3, LH, XB12F, CMP, PROL, TSH, VITD #### [facility] [address] [address] #### COR, GH, ACTH, ILGF1 #### [facility] [address] [place], [place] [address] Testosterone, Free 13.5 ng/dL Normal 5.25-20.7 [facility] Comment on above: Performed By: #### C BCDIF, DHEAS, FSH, FT4, FREET3, LH, XB12F, CMP, PROL, TSH, VITD #### [facility] [address] [place], [place] [address] #### COR, GH, ACTH, ILGF1 #### [facility] [address] [address] ACTHon 02-17-2020 ACTH 12 pg/mL Normal <47 [facility] Comment on above: Performed By: #### C BCDIF, DHEAS, FSH, FT4, FREET3, LH, XB12F, CMP, PROL, TSH, VITD #### [facility] [address] [place] [phone] #### COR, GH, ACTH, ILGF1 #### [facility] [address] [place] [phone] Growth Hormoneon 02-17-2020 Growth Hormone Normal <1.00 [facility] Comment on above: Result Comment: 0.10 Test analyzed by the [employer] mehod. Performed By: #### C BCDIF, DHEAS, FSH, FT4, FREET3, LH, XB12F, CMP, PROL, TSH, VITD #### [facility] [address] [place] [phone] #### COR, GH, ACTH, ILGF1 #### [facility] [address] [place] [phone] Insulin Lik Gr Fac 1on 02-16 Insulin Lik Gr Fac 1 474 ng/mL High 120-338 [facility] Comment on above: Performed By: #### C BCDIF, DHEAS, FSH, FT4, FREET3, LH, XB12F, CMP, PROL, TSH, VITD #### [facility] [address] [place] [phone] #### COR, GH, ACTH, ILGF1 #### [facility] [address] [place] [phone] CBC and Differentialon 02-13 Abs Baso 0.06 k/uL Normal <0.11 [facility] Comment on above: Performed By: #### C BCDIF, DHEAS, FSH, FT4, FREET3, LH, XB12F, CMP, PROL, TSH, VITD #### [facility] [address] [place] [phone] #### COR, GH, ACTH, ILGF1 #### [facility] [address] [place] [phone] Abs [place] 0.60 k/uL Normal <0.87 [facility] Comment on above: Performed By: #### C BCDIF, DHEAS, FSH, FT4, FREET3, LH, XB12F, CMP, PROL, TSH, VITD #### [facility] [address] [place] [phone] #### COR, GH, ACTH, ILGF1 #### [facility] [address] [place] [phone] Abs Neut 3.82 k/uL Normal 1.45-7.50 [facility] Comment on above: Performed By: #### C BCDIF, DHEAS, FSH, FT4, FREET3, LH, XB12F, CMP, PROL, TSH, VITD #### [facility] [address] [place] [phone] #### COR, GH, ACTH, ILGF1 #### [facility] [address] [place] [phone] Absolute nRBC <0.01 Normal <0.01 [facility] Comment on above: Performed By: #### C BCDIF, DHEAS, FSH, FT4, FREET3, LH, XB12F, CMP, PROL, TSH, VITD #### [facility] [address] [place] [phone] #### COR, GH, ACTH, ILGF1 #### [facility] [address] [place] [phone] Basophils/100 WBC (Bld) 0.8 % Normal [facility] Comment on above: Performed By: #### C BCDIF, DHEAS, FSH, FT4, FREET3, LH, XB12F, CMP, PROL, TSH, VITD #### [facility] [address] [place] [phone] #### COR, GH, ACTH, ILGF1 #### [facility] [address] [place] [address] DTYPE ADIFF Normal [facility] Comment on above: Performed By: #### C BCDIF, DHEAS, FSH, FT4, FREET3, LH, XB12F, CMP, PROL, TSH, VITD #### [facility] [address] [place] [address] #### COR, GH, ACTH, ILGF1 #### [facility] [address] [place] [address] Eosinophils (Bld) [#/Vol] 0.15 10*3/uL Normal <0.46 [facility] Comment on above: Performed By: #### C BCDIF, DHEAS, FSH, FT4, FREET3, LH, XB12F, CMP, PROL, TSH, VITD #### [facility] [address] [place] [address] #### COR, GH, ACTH, ILGF1 #### [facility] [address] [place], [place] [phone] Eosinophils/100 WBC (Bld) 2.1 % Normal [facility] Comment on above: Performed By: #### C BCDIF, DHEAS, FSH, FT4, FREET3, LH, XB12F, CMP, PROL, TSH, VITD #### [facility] [address] [place] [address] #### COR, GH, ACTH, ILGF1 #### [facility] [address] [place] [phone] Erythrocyte distribution width (RBC) [Ratio] 12.0 % Normal 11.5-15.0 [facility] Comment on above: Performed By: #### C BCDIF, DHEAS, FSH, FT4, FREET3, LH, XB12F, CMP, PROL, TSH, VITD #### [facility] [address] [place] [phone] #### COR, GH, ACTH, ILGF1 #### [facility] [address] [place] [phone] Hematocrit (Bld) [Volume fraction] 47.0 % Normal 39.0-51.0 [facility] Comment on above: Performed By: #### C BCDIF, DHEAS, FSH, FT4, FREET3, LH, XB12F, CMP, PROL, TSH, VITD #### [facility] [address] [place] [phone] #### COR, GH, ACTH, ILGF1 #### [facility] [address] [place] [phone] Hemoglobin (Bld) [Mass/Vol] 16.1 g/dL Normal 13.0-17.0 [facility] Comment on above: Performed By: #### C BCDIF, DHEAS, FSH, FT4, FREET3, LH, XB12F, CMP, PROL, TSH, VITD #### [facility] [address] [place] [phone] #### COR, GH, ACTH, ILGF1 #### [facility] [address] [place] [phone] Lymphocytes (Bld) [#/Vol] 2.53 10*3/uL Normal 1.00-4.00 [facility] Comment on above: Performed By: #### C BCDIF, DHEAS, FSH, FT4, FREET3, LH, XB12F, CMP, PROL, TSH, VITD #### [facility] [address] [place] [phone] #### COR, GH, ACTH, ILGF1 #### [facility] [address] [place] [phone] Lymphocytes/100 WBC (Bld) 35.2 % Normal [facility] Comment on above: Performed By: #### C BCDIF, DHEAS, FSH, FT4, FREET3, LH, XB12F, CMP, PROL, TSH, VITD #### [facility] [address] [place] [phone] #### COR, GH, ACTH, ILGF1 #### [facility] [address] [place] [phone] MCH (RBC) [Entitic mass] 30.1 pG Normal 26.0-34.0 [facility] Comment on above: Performed By: #### C BCDIF, DHEAS, FSH, FT4, FREET3, LH, XB12F, CMP, PROL, TSH, VITD #### [facility] [address] [place] [phone] #### COR, GH, ACTH, ILGF1 #### [facility] [address] [place] [phone] MCHC (RBC) [Mass/Vol] 34.3 g/dL Normal 30.5-36.0 [facility] Comment on above: Performed By: #### C BCDIF, DHEAS, FSH, FT4, FREET3, LH, XB12F, CMP, PROL, TSH, VITD #### [facility] [address] [place] [phone] #### COR, GH, ACTH, ILGF1 #### [facility] [address] [place] [phone] MCV (RBC) [Entitic vol] 88.0 fL Normal 80.0-100.0 [facility] Comment on above: Performed By: #### C BCDIF, DHEAS, FSH, FT4, FREET3, LH, XB12F, CMP, PROL, TSH, VITD #### [facility] [address] [place] [phone] #### COR, GH, ACTH, ILGF1 #### [facility] [address] [place] [phone] Monocytes/100 WBC (Bld) 8.4 % Normal [facility] Comment on above: Performed By: #### C BCDIF, DHEAS, FSH, FT4, FREET3, LH, XB12F, CMP, PROL, TSH, VITD #### [facility] [address] [place] [phone] #### COR, GH, ACTH, ILGF1 #### [facility] [address] [place] [phone] Neutrophils/100 WBC (Bld) 53.5 % Normal [facility] Comment on above: Performed By: #### C BCDIF, DHEAS, FSH, FT4, FREET3, LH, XB12F, CMP, PROL, TSH, VITD #### [facility] [address] [place] [phone] #### COR, GH, ACTH, ILGF1 #### [facility] [address] [place] [phone] NRBCs 0.0 /100 WBC Normal 0 [facility] Comment on above: Performed By: #### C BCDIF, DHEAS, FSH, FT4, FREET3, LH, XB12F, CMP, PROL, TSH, VITD #### [facility] [address] [place] [phone] #### COR, GH, ACTH, ILGF1 #### [facility] [address] [place] [phone] Platelet mean volume (Bld) [Entitic vol] 12.5 fL Normal 9.0-12.7 [facility] Comment on above: Performed By: #### C BCDIF, DHEAS, FSH, FT4, FREET3, LH, XB12F, CMP, PROL, TSH, VITD #### [facility] [address] [place] [phone] #### COR, GH, ACTH, ILGF1 #### [facility] [address] [place] [phone] Platelets (Bld) [#/Vol] 281 10*3/uL Normal 150-400 [facility] Comment on above: Performed By: #### C BCDIF, DHEAS, FSH, FT4, FREET3, LH, XB12F, CMP, PROL, TSH, VITD #### [facility] [address] [place] [phone] #### COR, GH, ACTH, ILGF1 #### [facility] [address] [place] [phone] RBC (Bld) [#/Vol] 5.34 10*6/uL Normal 4.20-6.00 [facility] Comment on above: Performed By: #### C BCDIF, DHEAS, FSH, FT4, FREET3, LH, XB12F, CMP, PROL, TSH, VITD #### [facility] [address] [place] [phone] #### COR, GH, ACTH, ILGF1 #### [facility] [address] [place] [phone] WBC (Bld) [#/Vol] 7.18 10*3/uL Normal 3.70-11.00 [facility] Comment on above: Performed By: #### C BCDIF, DHEAS, FSH, FT4, FREET3, LH, XB12F, CMP, PROL, TSH, VITD #### [facility] [address] [place] [phone] #### COR, GH, ACTH, ILGF1 #### [facility] [address] [place] [address] Comp Metabolic Panelon 02-13 Albumin [Mass/Vol] 4.8 g/dL Normal 3.9-4.9 [facility] Comment on above: Performed By: #### C BCDIF, DHEAS, FSH, FT4, FREET3, LH, XB12F, CMP, PROL, TSH, VITD #### [facility] [address] [place] [address] #### COR, GH, ACTH, ILGF1 #### [facility] [address] [place] [address] ALP [Catalytic activity/Vol] 55 U/L Normal 38-113 [facility] Comment on above: Performed By: #### C BCDIF, DHEAS, FSH, FT4, FREET3, LH, XB12F, CMP, PROL, TSH, VITD #### [facility] [address] [place] [address] #### COR, GH, ACTH, ILGF1 #### [facility] [address] [place] [address] ALT [Catalytic activity/Vol] 15 U/L Normal 10-54 [facility] Comment on above: Performed By: #### C BCDIF, DHEAS, FSH, FT4, FREET3, LH, XB12F, CMP, PROL, TSH, VITD #### [facility] [address] [place] [address] #### COR, GH, ACTH, ILGF1 #### [facility] [address] [place] [address] Anion gap [Moles/Vol] 15 mmol/L Normal 9-18 [facility] Comment on above: Performed By: #### C BCDIF, DHEAS, FSH, FT4, FREET3, LH, XB12F, CMP, PROL, TSH, VITD #### [facility] [address] [place] [address] #### COR, GH, ACTH, ILGF1 #### [facility] [address] [place] [address] AST [Catalytic activity/Vol] 20 U/L Normal 14-40 [facility] Comment on above: Performed By: #### C BCDIF, DHEAS, FSH, FT4, FREET3, LH, XB12F, CMP, PROL, TSH, VITD #### [facility] [address] [place] [phone] #### COR, GH, ACTH, ILGF1 #### [facility] [address] [place] [address] Bilirubin Ql (U) 1.1 mg/dL Normal 0.2-1.3 [facility] Comment on above: Performed By: #### C BCDIF, DHEAS, FSH, FT4, FREET3, LH, XB12F, CMP, PROL, TSH, VITD #### [facility] [address] [place] [phone] #### COR, GH, ACTH, ILGF1 #### [facility] [address] [place] [address] Calcium [Mass/Vol] 9.7 mg/dL Normal 8.5-10.2 [facility] Comment on above: Performed By: #### C BCDIF, DHEAS, FSH, FT4, FREET3, LH, XB12F, CMP, PROL, TSH, VITD #### [facility] [address] [place] [address] #### COR, GH, ACTH, ILGF1 #### [facility] [address] [place] [address] Chloride [Moles/Vol] 105 mmol/L Normal 97-105 [facility] Comment on above: Performed By: #### C BCDIF, DHEAS, FSH, FT4, FREET3, LH, XB12F, CMP, PROL, TSH, VITD #### [facility] Routine Lab [address] [place] [phone] #### COR, GH, ACTH, ILGF1 #### [facility] [address] [place] [phone] CO2 [Moles/Vol] 21 mmol/L Low 22-30 [facility] Comment on above: Performed By: #### C BCDIF, DHEAS, FSH, FT4, FREET3, LH, XB12F, CMP, PROL, TSH, VITD #### [facility] [address] [place] [phone] #### COR, GH, ACTH, ILGF1 #### [facility] [address] [place] [phone] Creatinine [Mass/Vol] 0.94 mg/dL Normal 0.73-1.22 [facility] Comment on above: Performed By: #### C BCDIF, DHEAS, FSH, FT4, FREET3, LH, XB12F, CMP, PROL, TSH, VITD #### [facility] [address] [place] [phone] #### COR, GH, ACTH, ILGF1 #### [facility] [address] [place] [phone] eGFR- Amer. >60 Normal [facility] Comment on above: Performed By: #### C BCDIF, DHEAS, FSH, FT4, FREET3, LH, XB12F, CMP, PROL, TSH, VITD #### [facility] [address] [place] [phone] #### COR, GH, ACTH, ILGF1 #### [facility] [address] [place] [address] GFR/1.73 sq M predicted among non-blacks MDRD (S/P/Bld) [Vol rate/Area] mL/min/{1.73_m2} Normal [facility] Comment on above: Performed By: #### C BCDIF, DHEAS, FSH, FT4, FREET3, LH, XB12F, CMP, PROL, TSH, VITD #### [facility] [address] [place] [address] #### COR, GH, ACTH, ILGF1 #### [facility] [address] [place] [address] Glucose [Mass/Vol] 85 mg/dL Normal 74-99 [facility] Comment on above: Performed By: #### C BCDIF, DHEAS, FSH, FT4, FREET3, LH, XB12F, CMP, PROL, TSH, VITD #### [facility] [address] [place] [address] #### COR, GH, ACTH, ILGF1 #### [facility] [address] [place] [address] Potassium [Moles/Vol] 3.6 mmol/L Low 3.7-5.1 [facility] Comment on above: Performed By: #### C BCDIF, DHEAS, FSH, FT4, FREET3, LH, XB12F, CMP, PROL, TSH, VITD #### [facility] [address] [place], [place] [phone] #### COR, GH, ACTH, ILGF1 #### [facility] [address] [place] [address] Protein [Mass/Vol] 7.1 g/dL Normal 6.3-8.0 [facility] Comment on above: Performed By: #### C BCDIF, DHEAS, FSH, FT4, FREET3, LH, XB12F, CMP, PROL, TSH, VITD #### [facility] [address] [place] [phone] #### COR, GH, ACTH, ILGF1 #### [facility] [address] [place] [phone] Sodium [Moles/Vol] 141 mmol/L Normal 136-144 [facility] Comment on above: Performed By: #### C BCDIF, DHEAS, FSH, FT4, FREET3, LH, XB12F, CMP, PROL, TSH, VITD #### [facility] [address] [place] [phone] #### COR, GH, ACTH, ILGF1 #### [facility] [address] [place] [phone] Urea nitrogen [Mass/Vol] 10 mg/dL Normal 9-24 [facility] Comment on above: Performed By: #### C BCDIF, DHEAS, FSH, FT4, FREET3, LH, XB12F, CMP, PROL, TSH, VITD #### [facility] [address] [place] [phone] #### COR, GH, ACTH, ILGF1 #### [facility] [address] [place] [phone] Cortisolon 02-14-2020 Cortisol <0.5 Normal [facility] Comment on above: Performed By: #### C BCDIF, DHEAS, FSH, FT4, FREET3, LH, XB12F, CMP, PROL, TSH, VITD #### [facility] [address] [place] [phone] #### COR, GH, ACTH, ILGF1 #### [facility] [address] [place] [phone] DHEA-Son 02-14-2020 DHEA-S 64.9 ug/dL Low 211.0-492.0 [facility] Comment on above: Performed By: #### C BCDIF, DHEAS, FSH, FT4, FREET3, LH, XB12F, CMP, PROL, TSH, VITD #### [facility] [address] [place] [phone] #### COR, GH, ACTH, ILGF1 #### [facility] [address] [place] [phone] FSHon 02-14-2020 FSH 1.9 mU/mL Normal 1.5-12.4 [facility] Comment on above: Performed By: #### C BCDIF, DHEAS, FSH, FT4, FREET3, LH, XB12F, CMP, PROL, TSH, VITD #### [facility] [address] [place] [phone] #### COR, GH, ACTH, ILGF1 #### [facility] [address] [place] [phone] Free T3on 02-14-2020 Free T3 [Mass/Vol] 3.9 pg/mL Normal 2.3-4.1 [facility] Comment on above: Performed By: #### C BCDIF, DHEAS, FSH, FT4, FREET3, LH, XB12F, CMP, PROL, TSH, VITD #### [facility] [address] [place] [phone] #### COR, GH, ACTH, ILGF1 #### [facility] [address] [place] [phone] Free T4on 02-14-2020 Free T4 [Mass/Vol] 1.3 ng/dL Normal 0.9-1.7 [facility] Comment on above: Performed By: #### C BCDIF, DHEAS, FSH, FT4, FREET3, LH, XB12F, CMP, PROL, TSH, VITD #### [facility] [address] [place] [phone] #### COR, GH, ACTH, ILGF1 #### [facility] [address] [place] [phone] LHon 02-14-2020 LH 6.2 mU/mL Normal 1.8-10.8 [facility] Comment on above: Performed By: #### C BCDIF, DHEAS, FSH, FT4, FREET3, LH, XB12F, CMP, PROL, TSH, VITD #### [facility] [address] [place] [phone] #### COR, GH, ACTH, ILGF1 #### [facility] [address] [place] [phone] Prolactinon 02-14-2020 Prolactin 16.3 ng/mL High 4.0-15.2 [facility] Reference Lab Comment on above: Performed By: #### C BCDIF, DHEAS, FSH, FT4, FREET3, LH, XB12F, CMP, PROL, TSH, VITD #### [facility] Routine Lab [address] [place] [phone] #### COR, GH, ACTH, ILGF1 #### [facility] Immunology [address] [place] [phone] TSHon 02-14-2020 TSH Qn 2.450 uU/mL Normal 0.270-4.200 [facility] Reference [facility] Comment on above: Performed By: #### C BCDIF, DHEAS, FSH, FT4, FREET3, LH, XB12F, CMP, PROL, TSH, VITD #### [facility] Routine Lab [address] [place] [phone] #### COR, GH, ACTH, ILGF1 #### [facility] Immun[facility] [address] [place] [phone] Vit B12 / Folate For Ref Lab Use Onlyon 02-14-2020 Cobalamin (Vitamin B12) [Mass/Vol] 479 pg/mL Normal 232-1245 [facility] Reference Lab Comment on above: Performed By: #### C BCDIF, DHEAS, FSH, FT4, FREET3, LH, XB12F, CMP, PROL, TSH, VITD #### [facility] Laboratories Routine Lab [address] [place] [phone] #### COR, GH, ACTH, ILGF1 #### [facility] [address] [place] [phone] Folate [Mass/Vol] 8.6 ng/mL Normal >4.7 [facility] Reference Lab Comment on above: Performed By: #### C BCDIF, DHEAS, FSH, FT4, FREET3, LH, XB12F, CMP, PROL, TSH, VITD #### [facility] Routine Lab [address] [place] [phone] #### COR, GH, ACTH, ILGF1 #### [facility] [address] [place] [phone] Vitamin D 25 Hydroxyon 02-13 Vitamin D 25 Hydroxy 14.0 ng/mL Low 31.0-80.0 [facility] Reference Lab Comment on above: Performed By: #### C BCDIF, DHEAS, FSH, FT4, FREET3, LH, XB12F, CMP, PROL, TSH, VITD #### [facility] Routine Lab [address] [place] [phone] #### COR, GH, ACTH, ILGF1 #### [facility] Immunology [address] [place] [address] Vital Signs Date Time Vital Sign Value Performing Clinician Vikki melgar 06-13-2020 20:46-0400 Body Temperature 98.2 [degF] [facility] [place] 06-13-2020 20:46-0400 BP Diastolic 99 mm[Hg] [facility] ABDIFATAH 06-13-2020 20:46-0400 BP Systolic 139 mm[Hg] [facility] ABDIFATAH 06-13-2020 20:46-0400 Pulse (Heart Rate) 89 /min [facility] 06-13-2020 20:46-0400 Pulse Oximetry 96 % [facility] A[facility] 06-13-2020 20:46-0400 Respiratory Rate 16 /min [facility] HABDIFATAH Encounters Encounter Date Encounter Type Care Provider Facility Start: 05-23-2024 End: 05-23-2024 ambulatory [facility] Start: 06-13-2020 End: 06-13-2020 Emergency department patient visit Donna Allen Work Phone: [facility] ED Comment on above: Facial laceration, i nitial encounter (Primary Dx) Procedures Date Procedure Procedure Detail Performing Clinician Start: 06-13-2020 LACERATION REPAIR Donna Allen Work Phone: Plan of Treatment Date Care Activity Detail Author Start: 07-07-2020 Influenza vaccination Flu vaccine (# 1) [place], [place] Payers Date Payer Category Payer Unknown [id number] 1995 Unknown [id number] Social History Date Type Detail Facility Start: 06-13-[address] [facility] Never smoker [place] Start: 06-13-2020 Tobacco use and exposure Never used [place] Start: 06-13-2020 Alcohol intake Lifetime non-d rolan (finding) [place] Start: 06-13-2020 History SDOH Alcohol Frequency 1 [place] Sex Assigned At Not on file [place] Exposure to SARS-CoV -2 (event) Not sure [place] Summary Purpose Family History No Family History Records FoundNo Family History Records FoundNo Family History Records FoundNo Family History Records Found Advance Directives No Advanced Directives Records FoundNo Advanced Directives Records FoundNo Advanced Directives Records FoundNo Advanced Directives Records Found Discharge Instructions * Attachments The following attachments cannot be sent through Care Everywhere. * Facial Laceration: Stitches (Slovak) documented in this encounter Assessments Diagnosis Facial laceration, initial encounter Additional Source Comments (unrecognized sect ion and content) No Status Records FoundNo Status Records FoundNo Status Records FoundNo Status Records Found INFORMATION SOURCE (unrecogn ized section and content) DATE CREATED AUTHOR 02/19/2020 [facility] DATE CREATED AUTHOR AUTHOR'S ORGANIZ ATION 10/19/2021 [facility] DATE CREATED AUTHOR AUTHOR'S ORGANIZ ATION 07/16/2023 [facility] DATE CREATED AUTHOR AUTHOR'S ORGANIZ ATION 05/29/2024 [facility] Reason for Visit (unrecogniz ed section and content) Reason Comments Laceration FOR RECORDS PERTAINING TO PATIENTS WHO ARE OR HAVE BEEN ENROLLED IN A CHEMICAL DEPENDENCY/SUBSTANCEABUSE PROGRAM, SOME INFORMATION MAY BE OMITTED. This clinical summary was aggregated from multiple sources. Caution should be exercised in using it in the provision of clinical care. This summary normalizes information from multiple sources, and as a consequence, information in this document may materially change the coding, format and clinical context of patient data. In addition, data may be omitted in some cases. CLINICAL DECISIONS SHOULD BE BASED ON THE PRIMARY CLINICAL RECORDS. [facility] [employer] [facility]. provides no warranty or guarantee of the accuracy or completeness of information in this document.
[2025-09-14] MEDS: Piperacil/Tazobactam 3.375 GM in 0.9% Normal Saline (50mL MB+) 50 ML IV ×2 (06:32→13:58)
[2025-09-14] MEDS: Heparin Injection (Vial) 5,000 UNIT/ML VIAL 5000 UNIT SC ×2 (06:53→13:55)
[2025-09-14] MEDS: Lactated Ringers 1,000 ML 150 ML IV ×3 (07:01→20:01)
[2025-09-14] MEDS: Vancomycin HCl 1,250 MG in 0.9% Normal Saline (250mL Bag) 250 ML 167 MG IV (07:02)
[2025-09-14] MEDS: Magnesium Sulfate 2 GM in Dextrose 5%-Water (100mL Bag) 100 ML IV (07:14)
[2025-09-14] MEDS: Albuterol 2.5 MG/3 ML VIAL.NEB. INHALATION ×3 (07:42→19:20)
[2025-09-14] MEDS: Budesonide Respules 0.5 MG/2 ML AMPUL.NEB. INHALATION ×2 (07:42→19:20)
[2025-09-14] MEDS: Pantoprazole Sodium 40 MG in 0.9% Normal Saline (100mL MB+) 100 ML 300 MG IV ×2 (09:27→21:47)
[2025-09-14] MEDS: HYDROmorphone 0.5 MG/0.5 ML SYRINGE IV ×3 (09:27→19:14)
[2025-09-14] MEDS: Fluticasone 0.05% 1 SPRAY NASAL.SRY 4 SPRAY NASAL (09:29)
[2025-09-14] MEDS: Vancomycin 125 MG/5 ML Susp PO.SYRINGE PO (09:29)
--- NOTE | 2025-09-14 12:14 | PN_ITS ---
Subjective Subjective Patient seen and examined with his nurse by his bedside. Both parents are also at his bedside. He complained of abdominal pain with a clear liquid diet that he was on. He had tried some Jell-O and liquids and some abdominal pain. He has been having nausea vomiting and diarrhea. Denied any fever or chills. Review of systems otherwise negative. Mother states patient had an extensive history of allergies to many food allergies in childhood and currently follows with a director of extension work in [facility]. He does not have any known diagnosis of Crohn's or ulcerative colitis. Vitals are significant for fever with temperature of 100.5 Fahrenheit. Patient is also tachycardic with heart rate of 126. Objective Data Objective Data Vital Signs: Vital Signs Temp Pulse Resp BP Pulse Ox O2 Del Method 100.5 F H 126 H 15 121/82 H 96 Room Air 09/14/25 09:02 09/14/25 09:02 09/14/25 09:02 09/14/25 09:02 09/14/25 09:02 09/14/25 09:02 Oxygen Delivery Method Room Air Weight: 173 lb 1.006 oz Body Mass Index (BMI) 28.8 Intake & Output: Intake and Output for Last 24 Hours 09/12/25 09/13/25 09/14/25 23:59 23:59 23:59 Intake Total 982.35 / 982.35 2529 / 2529 Balance 982.35 / 982.35 2529 / 2529 Lab / Micro Data 09/13/25 21:44 09/13/25 21:44 Labs: Laboratory Results - last 24 hr 09/13/25 21:44: WBC 13.9 H, RBC 5.85, Hgb 17.3 H, Hct 49.5, MCV 84.6, MCH 29.6, MCHC 34.9, RDW Std Deviation 37.0, RDW Coeff of Fatoumata 12.0, Plt Count 275, MPV 11.7, Immature Gran % (Auto) 0.400, Neut % (Auto) 90.2 H, Lymph % (Auto) 2.9 L, [place] % (Auto) 4.4, Eos % (Auto) 1.4, Baso % (Auto) 0.7, Absolute Neuts (auto) 12.6 H, Absolute Lymphs (auto) 0.41 L, Nucleated RBC % 0, Sodium 134, Potassium 3.8, Chloride 102, Carbon Dioxide 17.4 L, Anion Gap 15, BUN 24 H, Creatinine 1.82 H, Estim Creat Clear Calc 60.01, Est GFR (MDRD) Non-Af 52 L, BUN/Creatinine Ratio 13.3, Glucose 138 H, Calcium 8.9, Magnesium 1.3 L, Total Bilirubin 0.98, D irect Bilirubin 0.44 H, AST 31, ALT 38, Alkaline Phosphatase 56, Total Protein 6.8, Albumin 4.2, Globulin 2.6, Lipase 16, Procalcitonin 18.60 H, TSH 0.635 09/14/25 04:45: Lactic Acid < 1.0 Micro: Microbiology 09/14/25 07:35 Stool Enteric Bacteriology - Final Salmonella Sp. 09/14/25 07:35 Stool Clostridioides difficile (PCR) - Final Radiography Diagnostic Testing: Radiology Impression Abdomen CT 09/13/25 23:34 IMPRESSION: Diffuse uniform wall thickening and edema with fluid dimension of the terminal ileum, caecum, ascending and proximal 2/3 of the transverse colon with mild surrounding fat stranding and associated prominent ileocolic and mesenteric lymph nodes, possibly inflammatory. Advise clinical and laboratory correlation. Reading Location: [place] [id number] Physical Exam Const alert Constitutional Narrative: in mild distress due to abdominal pain. Looks uncomfortable. HEENT normocephalic and head/scalp atraumatic Mouth: dry mucous membranes Eyes EOMs intact bilaterally Neck supple and no JVD Lymph Lymphatic: no lymphedema noted Resp normal respiratory effort, normal air movement and clear to auscultation bilaterally Cardio regular rhythm, S1 normal heart sound and S2 normal heart sound Cardio Narrative: Tachycardic GI normal to inspection, nondistended, normoactive bowel sounds GI Narrative: Minimal generalized tenderness. No guarding or rebound tenderness. Extremity normal capillary refill General Extremity: no tenderness to palpation of joints or extremities Skin General Skin Exam: no breakdown Neuro no focal motor deficits Motor Exam: general weakness Psych thought process normal and cooperative Appearance: appropriate Assessment & Plan Assessment/Plan (1) Colitis: (2) Salmonella: PLAN: Plan #Acute colitis due to Salmonella gastroenteritis * Patient was admitted with complaint of nausea and vomiting and diarrhea * CT abdomen and pelvis showed diffuse uniform wall thickening and edema with fluid dimension of the terminal ileum, cecum and extending and proximal two thirds of the transverse colon with mild surrounding fat stranding and associated prominent ileocolic and mesenteric lymph nodes possibly inflammatory. * Stool enteric panel positive for Salmonella. C. difficile screen negative. * Patient's mother says she gave him some eggs from the chickens at home. Patient says he cooked the eggs before eating. The only other thing he ate recently was some stew his mother prepared over the weekend but other family members ate this and they did not have similar complaints. * Patient is currently on IV Zosyn. Will continue antibiotics, but narrow down to IV ceftriaxone. Consult gastroenterology due to the extent of the colitis to make sure there is no other underlying pathology above from the Salmonella infection. * Keep n.p.o. for now. Continue hydration with IV fluid. P.o. Tylenol, p.o. oxycodone and IV morphine as needed for pain * WBC is 13.9. * Will DC oral vancomycin as C. difficile screen is negative. * #Sepsis due to acute Salmonella gastroenteritis: As above. #History of adrenal insufficiency: On hydrocortisone and fludrocortisone. Currently on stress dose steroids due to underlying infection #BIENVENIDO: Creatinine is improving. I will continue hydration with IV fluids. #Non-anion gap metabolic acidosis: Likely due to severe diarrhea and BIENVENIDO: Improving #Hypomagnesemia: Magnesium replaced and will monitor. #History of eosinophilic esophagitis and GERD: On budesonide and IV PPI #History of multiple food allergies: Patient is allergic to fish containing products, milk and nuts as well as self fish derived products. 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 On Singulair DVT prophylaxis: Lovenox Charges/Coding Visit Charges Inpatient E&M: 06594 Subs Hosp L3
[2025-09-14] MEDS: 0.9% Saline Lock 10 ML Syringe IV ×2 (13:56→19:14)
--- NOTE | 2025-09-14 16:24 | CON.PCM.GI_ITS ---
HPI Consult Data Date of Consult: 09/14/25 HPI Narrative Reason for Consultation: Enterocolitis HPI Narrative: LONNY ROLLINS, is a 29-year-old male with a past medical history of adrenal insufficiency who presents to the hospital with subjective fevers, chills, generalized abdominal discomfort, and multiple bouts of watery diarrhea over the last 24 hours. He reports taking stress dose steroids today due to feeling unwell, but his symptoms did not improve. He denies any known sick contacts, recent antibiotic use, travel outside the country, or exposure to livestock. He reports recently eating eggs from chickens at home, which his mother provided, but he states they were cooked before consumption. He also ate stew prepared by his mother over the weekend; however, no other family members who ate the stew reported similar complaints. * Imaging:?CT abdomen and pelvis showed diffuse uniform wall thickening and edema with fluid dimension of the terminal ileum, cecum and extending and proximal two thirds of the transverse colon with mild surrounding fat stranding and associated prominent ileocolic and mesenteric lymph nodes possibly inflammatory. * Labs:?Stool enteric panel positive for?Salmonella.?C. difficile?screen negative. * Medications:?Currently on IV Zosyn. [facility] Medical History Male pattern baldness Allergies GERD (gastroesophageal reflux disease) Eosinophilic esophagitis Growth hormone deficiency Asthma Adrenal insufficiency Home Medications ?Medication ?Instructions ?Recorded ?Last Taken ?Type cetirizine 10 mg tablet (24Hour 10 mg PO DAILY allergi es 09/14/25 Unknown History Allergy) finasteride 1 mg tablet 1 mg PO DAILY urine flow 07/31 Unknown History fluticasone furoate 200 1 inh inhalation DAILY asthm a 09/14/25 Unknown History mcg-vilanterol 25 mcg/dose inhalation powder (Breo Ellipta) hydrocortisone 5 mg tablet 5 mg PO 1400 adrenal insuff iciency 09/14/25 Unknown History hydrocortisone 5 mg tablet 10 mg PO DAILY adrenal 07/31 Unknown History insufficiency minoxidil 2.5 mg tablet 1.25 mg PO DAILY hairloss Unknown History mometasone 50 mcg/actuation nasal 4 spray intranasal D AILY allergies 09/14/25 Unknown History spray montelukast 10 mg tablet 10 mg PO QPM allergies 09/14 Unknown History pantoprazole 40 mg tablet,delayed 40 mg PO BID GERD Unknown History release Allergy/AdvReac Type Severity Reaction Status Date / Time Fish Containing Products Allergy Food Verified 09/13/25 21:25 Allergy milk (dairy) Allergy Food Verified 09/13/25 21:25 Allergy nut - unspecified (nuts) Allergy Food Verified 09/13/25 21:25 Allergy shellfish derived Allergy Hives Verified 09/13/25 21:25 Family History no significant family his Surgical History no surgical history Social History current occupational status: employed Smoking Status: Never smoker alcohol intake: never substance use type: does not use ROS Constitutional Constitutional: Reports anorexia, chills, fatigue, fever(s), malaise and weakness; Denies change in weight, night sweats or other Eyes Eyes: Denies blurry vision, change in eye color, change in vision, discharge from eye(s), double vision, erythema, eye pain, loss of vision or other ENT HEENT: Denies abnormal hearing, dysphagia, ear pain, epistaxis, headache(s), hearing loss, nasal congestion, nasal discharge, post nasal drip, sinus pressure, sore throat or other Cardiovascular Cardiovascular: Denies chest pain, claudication, dyspnea on exertion, edema, lightheadedness, orthopnea, palpitations, paroxysmal nocturnal dyspnea, rapid heart rate, syncope or other Respiratory/Chest Respiratory/Chest: Denies cough, dyspnea, excessive phlegm production, hemoptysis, productive cough, shortness of breath at rest, shortness of breath with exertion, wheezing or other Gastrointestinal Gastrointestinal: Reports abdominal pain, diarrhea, nausea and vomiting; Denies coffee ground emesis, constipation, dyspepsia, hematemesis, hematochezia, loose stools, melena or other Physical Exam Const alert, oriented x3, no apparent distress and healthy appearing General Appearance: cooperative GI normal to inspection, nondistended, normoactive bowel sounds, soft to palpation, non-tender and non-distended Percussion: normal to percussion Rectal Exam: deferred Lab / Micro Data 09/13/25 21:44 09/13/25 21:44 Labs: Laboratory Results - last 24 hr 09/13/25 21:44: WBC 13.9 H, RBC 5.85, Hgb 17.3 H, Hct 49.5, MCV 84.6, MCH 29.6, MCHC 34.9, RDW Std Deviation 37.0, RDW Coeff of Fatoumata 12.0, Plt Count 275, MPV 11.7, Immature Gran % (Auto) 0.400, Neut % (Auto) 90.2 H, Lymph % (Auto) 2.9 L, [place] % (Auto) 4.4, Eos % (Auto) 1.4, Baso % (Auto) 0.7, Absolute Neuts (auto) 12.6 H, Absolute Lymphs (auto) 0.41 L, Nucleated RBC % 0, Sodium 134, Potassium 3.8, Chloride 102, Carbon Dioxide 17.4 L, Anion Gap 15, BUN 24 H, Creatinine 1.82 H, Estim Creat Clear Calc 60.01, Est GFR (MDRD) Non-Af 52 L, BUN/Creatinine Ratio 13.3, Glucose 138 H, Calcium 8.9, Magnesium 1.3 L, Total Bilirubin 0.98, D irect Bilirubin 0.44 H, AST 31, ALT 38, Alkaline Phosphatase 56, Total Protein 6.8, Albumin 4.2, Globulin 2.6, Lipase 16, Procalcitonin 18.60 H, TSH 0.635 09/14/25 04:45: Lactic Acid < 1.0 Micro: Microbiology 09/14/25 07:35 Stool Enteric Bacteriology - Final Salmonella Sp. 09/14/25 07:35 Stool Clostridioides difficile (PCR) - Final Imaging Radiology Impression Abdomen CT 09/13/25 23:34 IMPRESSION: Diffuse uniform wall thickening and edema with fluid dimension of the terminal ileum, caecum, ascending and proximal 2/3 of the transverse colon with mild surrounding fat stranding and associated prominent ileocolic and mesenteric lymph nodes, possibly inflammatory. Advise clinical and laboratory correlation. Reading Location: [facility] Assessment & Plan Assessment/Plan (1) Salmonella: (2) Colitis: (3) Leukocytosis: PLAN: Plan The patient presents with acute colitis and gastroenteritis symptoms. The stool studies confirmed?Salmonella?as the causative organism. The CT findings are consistent with inflammation of the terminal ileum and colon (ileocolitis), likely related to the bacterial infection. The patient's history of adrenal insufficiency is a significant comorbidity that required stress-dose steroids and necessitates careful management in the setting of acute illness and potential hemodynamic instability. The differential diagnosis for the CT findings includes inflammatory bowel disease (IBD), though the acute onset of symptoms and positive?Salmonella?culture make infectious colitis the most probable cause at this time. Gastroenterology has been consulted to help differentiate between infectious colitis and IBD and assist with management. The source of the infection is likely the home eggs, despite the patient cooking them, or potentially other food sources not clearly identified. Plan * Monitoring:?Continue close monitoring of vital signs and clinical status, especially given the history of adrenal insufficiency. * Infectious Disease:?Continue current treatment with IV Zosyn for?Salmonella? infection. Monitor response to antibiotics. * There is a possibility that Salmonella could trigger inflammatory bowel disease. Typically , Crohn's disease does not present with entero-pancolitis. It does have mesenteric lymphadenopathy and typically there is no rectal involvement. It would be very difficult to determine while there is a active Salmonella infection.I can order ESR, CRP, IBD SGI. MRI enterography would not be helpful at this time. Also, biopsies would not be helpful with an acute infection. He can have mesalamine 1.6 g 3 times daily for acute inflammation of the colon. * Endocrinology:?Consult Endocrinology for management of adrenal insufficiency and appropriate stress-dose steroid regimen during acute illness. * Supportive Care:?Continue supportive care with IV fluids for hydration, antidiarrheals as appropriate (caution due to infection), and pain management.
[2025-09-14 19:25] LABS: CORTISOL PM 23.20 ug/dL (2.68-10.50); CRP 292.00 mg/L (0.0-3.0)
[2025-09-15] VITALS (7 sets, daily range): BP systolic 117–127; BP diastolic 71–84; PULSE 93–99; RESP 16–18; TEMP 36.4–38.1; O2SAT 97–99
[2025-09-15] MEDS: HYDROmorphone 0.5 MG/0.5 ML SYRINGE IV ×3 (03:03→17:14)
[2025-09-15 05:37] LABS: Differential Indicated SCAN CRITERIA MET; Hematocrit 43.1 % (40-54); Hemoglobin 14.8 g/dL (13.0-16.5); Immature Granulocytes Count 0.100 X10^3/uL (0.0-0.0); Mean Corp Hgb Conc 34.3 g/dL (32-36); Mean Corpuscular Volume 85.5 fL (80-94); Mean Platelet Vol. 10.6 fl (6.2-12.0); NRBC Flagged by Analyzer 0 % (0-5); POSITIVE MORPHOLOGY YES; Platelet Count 206 K/mm3 (150-450); RBC Distribution Width CV 12.4 % (11.6-14.6); RBC Distribution Width SD 38.6 fl (35.1-43.9); Red Blood Count 5.04 M/mm3 (4.6-6.2); White Blood Count 10.5 K/mm3 (4.4-11.0)
[2025-09-15 06:10] LABS: Red Cell Morphology NORM C+C NORMAL (NORM C&C); Vacuolated Cells 1+
[2025-09-15 06:12] LABS: Magnesium 2.3 mg/dL (1.5-2.2)
[2025-09-15 06:15] LABS: AST(SGOT) 33 U/L (<=37); Alanine Aminotransfer ALT/SGPT 41 U/L (<=46); Albumin, Serum 3.5 g/dL (3.5-5.0); Alkaline Phosphatase 86 U/L (40-129); Anion Gap 12 (5-15); BUN 9 mg/dL (4-19); BUN/Creat Ratio 9.5 RATIO (10-20); Calcium,Total 8.6 mg/dL (7.6-11.0); Carbon Dioxide 18.4 mmol/L (21.0-32.0); Chloride 107 mmol/L (98-108); Estimated Creatinine Clearance 112.83 ml/min (50-250); Globulin 2.3 g/dL (2.2-4.2); Glucose 125 mg/dL (70-99); Potassium 3.8 mmol/L (3.3-5.1)
--- OUTSIDE RECORDS SUMMARY | 2025-09-15 08:57 | XMS RPT_ITS | CCD ---
Author Organization [facility] ion [facility] Care Team Providers Care Shank Turner Name Role Phone Unavailable Primary Care Provider UnavailENMANUEL Major Primary Care Unavailable Care Physician, No Primary Primary Care Unava ilable Yadi Yen Consulting Unavailable Yadi Yen Attending Unavailable Yadi Yen Admitting Unavailable Friend, Bartolo Attending Unavailable Antoinette Laurenkash Consulting Unavailable Friend, Bartolo Consulting Unavailable Arely Lovelace Consulting Unavailable Gissell Davenport Consulting Unavailable Celsa Aburto Consulting Unavailable Eleanor Cassidy Consulting Unavailable Eleanor Cassidy Attending Unavailable Care Physician, No Primary Primary Care Unava ilable Yadi Yen Consulting Unavailable Yadi Yen Admitting Unavailable Leonidas Tino Consulting Unavailable Friend, Bartolo Consulting Unavailable Arely Lovelace Consulting Unavailable Gissell Davenport Consulting Unavailable Celsa Aburto Consulting Unavailable Allergies Allergy Classification Reported Allergen(s) Allergy Type Date of Onset Reaction(s) Facility (1 source) Banana Extract Drug Allergy 7 [place], [place] (1 source) cow milk allergenic extract Drug Allergy 7 [place] ([place] source) egg extract Drug Allergy [place] ([place]) Fish-Derived Products Propensity to adverse reactions to drug 1 [place] ([place] source) Peanut-Containin g Drug Products Propensity to adverse reactions to drug 1 [place] ([place] source) Pork-Derived Products Propensity to adverse reactions to drug 3 [place] (1 source) Poultry Meal Propensity to adverse reactions to drug 1 [place] ([place] source) Soybean-Containi ng Drug Products Propensity to adverse reactions to drug [address] [facility], [place] (1 source) ALLERGIES NOT ON FILE; Translations: [ALLERGIES NOT ON FILE] Propensity to adverse reactions (disorder) [facility] Repository (1 source) Milk Drug allergy (disorder) 5 [facility] (1 source) Shellfish Drug allergy (disorder) 5 [facility] (1 source) Fish Containing Products Drug allergy (disorder) 5 [facility] (1 source) nut - unspecified Drug allergy (disorder) 5 [facility] Medications Current Medications Medication Drug Class(es) Dates [...] mL Problems Problem Classification Problem Date Documented Da te Episodic/Chronic Acute and unspecified renal failure (1 source) Acute kidney failure, unspecified; Translations: [Acute kidney failure, unspecified] Onset: 09-15-2025 Episodic Cardiac dysrhythmias (1 source) Tachycardia, unspecified; Translations: [Tachycardia, unspecified] Onset: 09-15-2025 Episodic Diabetes mellitus without complication (2 sources) Type 2 diabetes mellitus without complications; Translations: [Type 2 diabetes mellitus without complications (Multi)] Onset: 05-23-2024 Chronic Diseases of white blood cells (1 source) Elevated white blood cell count, unspecified; Translations: [Elevated white blood cell count, unspecified] Onset: 09-15-2025 Chronic Fluid and electrolyte disorders (1 source) Dehydration; Translations: [Dehydration] Onset: 09-15-2025 Episodic Intestinal infection (1 source) Salmonella infection, unspecified; Translations: [Salmonella infection, unspecified] Onset: 09-15-2025 Episodic Nausea and vomiting (1 source) Nausea with vomiting, unspecified; Translations: [Nausea with vomiting, unspecified] Onset: 09-15-2025 Episodic Noninfectious gastroenteritis (1 source) Noninfective gastroenteritis and colitis, unspecified; Translations: [Noninfective gastroenteritis and colitis, unspecified] Onset: 09-15-2025 Episodic Nutritional deficiencies (2 sources) Vitamin D deficiency, unspecified; Translations: [Vitamin D deficiency, unspecified] Onset: 05-23-2024 Chronic Open wounds of head; neck; and trunk (1 source) Facial laceration ; Translations: [Facial laceration, initial encounter] Episodic Other gastrointestinal disorders (1 source) Diarrhea, unspecified; Translations: [Diarrhea, unspecified] Onset: 09-15-2025 Episodic Other nutritional; endocrine; and metabolic disorders (1 source) Hypomagnesemia; Translations: [Hypomagnesemia] Onset: 09-15-2025 Chronic Other screening for suspected conditions (not mental disorders or infectious disease) (1 source) Other specified abnormal findings of blood chemistry; Translations: [Other specified abnormal findings of blood chemistry] Onset: 09-15-2025 Episodic Thyroid disorders (2 sources) Hypothyroidism, unspecified; Translations: [Hypothyroidism, unspecified] Onset: 05-23-2024 Chronic Unclassified (1 source) Acidosis, unspecified; Translations: [Acidosis, unspecified] Onset: 09-15-2025 Results Test Name Value Interpretation Reference Range Facility NISH Comprehensive Panelon NISH TABLE TNP Normal [facility] Comment on above: Performed By: #### L 509.6002, L101.9900, L501.6710, L3100.5440 ####[facility] [id number] [place], [address] CBC W/Diff, Automatedon 09-06 PLT EST ADEQUATE Normal ADEQ [facility] Comment on above: Performed By: #### L 501.5200, L500.4050, L501.2300, L100.0100 #### [facility] [address] [place], [address] RED CELL MORPH NORM C+C Normal NORM C C [facility] Comment on above: Performed By: #### L 501.5200, L500.4050, L501.2300, L100.0100 #### [facility] [address] [place], [address] SMEAR COMMENT Normal [facility] Comment on above: Result Comment: 2+ B ANDS Performed By: #### L 501.5200, L500.4050, L501.2300, L100.0100 #### [facility] [address] [place], [address] VACUOLATE CELLS 1+ Normal [facility] Comment on above: Performed By: #### L 501.5200, L500.4050, L501.2300, L100.0100 #### [facility] [address] [place], [address] Comprehensive Metabolic Prof nyon 09-15-2025 Albumin [Mass/Vol] 3.5 g/dL Normal 3.5-5.0 [facility] Comment on above: Performed By: #### L 501.5200, L500.4050, L501.2300, L100.0100 #### [facility] [address] [place], [address] Albumin/Globulin [Mass ratio] 1.5 {ratio} Normal 0.9-2.4 [facility] Comment on above: Performed By: #### L 501.5200, L500.4050, L501.2300, L100.0100 #### [facility] [address] [place], [address] ALK PHOS 86 U/L Normal 40-129 [facility] Comment on above: Performed By: #### L 501.5200, L500.4050, L501.2300, L100.0100 #### [facility] [address] [place], [address] ALT [Catalytic activity/Vol] 41 U/L Normal <=46 [facility] Comment on above: Performed By: #### L 501.5200, L500.4050, L501.2300, L100.0100 #### [facility] [address] [place], [address] AST [Catalytic activity/Vol] 33 U/L Normal <=37 [facility] Comment on above: Performed By: #### L 501.5200, L500.4050, L501.2300, L100.0100 #### [facility] [address] [place], [address] Bilirubin [Mass/Vol] 0.55 mg/dL Normal 0.00-1.30 [facility] Comment on above: Performed By: #### L 501.5200, L500.4050, L501.2300, L100.0100 #### [facility] [address] [place], [address] BUN/CRE 9.5 RATIO Low 10-20 [facility] Comment on above: Performed By: #### L 501.5200, L500.4050, L501.2300, L100.0100 #### [facility] [address] [place], [address] Calcium [Mass/Vol] 8.6 mg/dL Normal 7.6-11.0 [facility] Comment on above: Performed By: #### L 501.5200, L500.4050, L501.2300, L100.0100 #### [facility] [address] [place], [address] Chloride [Moles/Vol] 107 mmol/L Normal 98-108 [facility] Comment on above: Performed By: #### L 501.5200, L500.4050, L501.2300, L100.0100 #### [facility] [address] [place], [address] CO2 [Moles/Vol] 18.4 mmol/L Low 21.0-32.0 [facility] Comment on above: Performed By: #### L 501.5200, L500.4050, L501.2300, L100.0100 #### [facility] [address] [place], [address] Creatinine [Mass/Vol] 0.95 mg/dL Normal 0.70-1.20 [facility] Comment on above: Performed By: #### L 501.5200, L500.4050, L501.2300, L100.0100 #### [facility] [address] [place], [address] ECRCL 112.83 ml/min Normal 50-250 [facility] Comment on above: Performed By: #### L 501.5200, L500.4050, L501.2300, L100.0100 #### [facility] [address] [place], [address] GAP 12 Normal 5-15 [facility] Comment on above: Performed By: #### L 501.5200, L500.4050, L501.2300, L100.0100 #### [facility] [address] [place], [address] GFR/1.73 sq M.predicted among non-blacks MDRD (S/P/Bld) [Vol rate/Area] 113 mL/min/{1.73_m2} Normal >60 [facility] Comment on above: Result Comment: mL/m in/1.73m2 CKD-EPI Creatinine Equation (2020) Performed By: #### L 501.5200, L500.4050, L501.2300, L100.0100 #### [facility] [address] [place], [address] Globulin (S) [Mass/Vol] 2.3 g/dL Normal 2.2-4.2 [facility] Comment on above: Performed By: #### L 501.5200, L500.4050, L501.2300, L100.0100 #### [facility] [address] [place], [address] Glucose [Mass/Vol] 125 mg/dL High 70-99 [facility] Comment on above: Performed By: #### L 501.5200, L500.4050, L501.2300, L100.0100 #### [facility] [address] [place], [address] Potassium [Moles/Vol] 3.8 mmol/L Normal 3.3-5.1 [facility] Comment on above: Performed By: #### L 501.5200, L500.4050, L501.2300, L100.0100 #### [facility] [address] [place], [address] Sodium [Moles/Vol] 137 mmol/L Normal 133-145 [facility] Comment on above: Performed By: #### L 501.5200, L500.4050, L501.2300, L100.0100 #### [facility] [address] [place], [address] T PROT 5.8 g/dL Low 5.9-8.4 [facility] Comment on above: Performed By: #### L 501.5200, L500.4050, L501.2300, L100.0100 #### [facility] [address] [place], [address] Urea nitrogen [Mass/Vol] 9 mg/dL Normal 4-19 [facility] Comment on above: Performed By: #### L 501.5200, L500.4050, L501.2300, L100.0100 #### [facility] [address] [place] [place], [address] Culture, Blood (WB)on 2024 CUB Blood cultures x2, f rom two different sites AEROBIC GRAM STAIN= GRAM POSITIVE COCCI IN CLUSTERS Culture, Blood (WB) RESULTS CALLED TO DORA MANZANO 09/15/25 0816 Awilda Kohli. REPORT READ BACK BY . Normal [facility] Comment on above: Performed By: #### L 503.6005, M200.1000 ####[facility] [address] [place], [address] Magnesiumon 09-15-2025 Magnesium [Mass/Vol] 2.3 mg/dL High 1.5-2.2 [facility] Comment on above: Performed By: #### L 501.5200, L500.4050, L501.2300, L100.0100 ####[facility] [address] [place], [address] Phosphoruson 09-15-2025 Phosphate [Mass/Vol] 2.2 mg/dL Low 2.7-4.5 [facility] Comment on above: Performed By: #### L 501.5200, L500.4050, L501.2300, L100.0100 ####[facility] [address] [place], [address] Stool Lactoferrin/WBCon - WBCST Normal Reference Ran ge = Negative Fecal WBC Lactoferrin A Positive: Fecal WBC Lactoferrin present A Normal [facility] Comment on above: Performed By: #### M 100.0605 #### [facility] [address] [place] [place], [address] CDIFF (PCR)on 09-14-2025 CDIFF Is the patient recei ving laxatives? N Above criteria not met but test indicated N New/unexplained onset of 3 or more stools in past 24 hrs? Y Reference Range: Negative Pouring Pounds GeneXpert: polymerase chain reaction (PCR) 027 027 NAP1-B1 Presumptive Negative *for epidemiolologic???use C. Diff PCR Negative- No toxigenic C. Diff Detected Normal [facility] Comment on above: Performed By: #### M 100.637, M100.6796 #### [facility] [address] [place], [place], [address] CRPon 09-14-2025 C-REACTIVE PROT 292.00 mg/L High 0.0-3.0 [facility] Comment on above: Performed By: #### L 509.6002, L101.9900, L501.6710, L3100.5440 ####[facility] [address] [place], [address] ENTERIC PATHOGEN PANEL STOOL on 09-14-2025 EP PANEL Is the patient recei ving laxatives? N Above criteria not met but test indicated N New/unexplained onset of 3 or more stools in past 24 hrs? Y Normal Reference Range = Not Detected Salmonella species detected. Susceptibility testing not routinely performed but can be completed at the request by the ordering physician. Treatment is often not needed in many cases. This is an amplified DNA test which makes it both specific and sensitive. Copy of report sent to Infection Control Printer [id number] 09/14/25 1121 JOSE. RESULTS CALLED TO [facility] 09/14/25 1122 Marisol Yee. REPORT READ BACK BY SAME. CAMPYLOBACTER Not Detected Norovirus Not Detected Rotavirus Not Detected Salmonella A Salmonella sp. Detected A Shiga Toxin Not Detected Shigella sp. Not Detected VIBRIO Not Detected Yersinia Not Detected Salmonella Sp. Normal [facility] Comment on above: Performed By: #### M 100.637, M100.6796 #### [facility] [address] [place] [place], [address] Erythrocyte Sed Rateon 09-14 SED RATE 4 mm/hr Normal 0-20 [facility] Comment on above: Performed By: #### L 509.6002, L101.9900, L501.6710, L3100.5440 ####[facility] [address] [place], [address] H AND P Exam - Hospitaliston 09-14-2025 H&P Exam - Hospitalist [facility] Medical Records Department [address] [place] [address] H P Exam - Hospitalist 09/14/25 0439 MR#: [id number] Acct: [id number] Name: LONNY ROLLINS Rep #: [id number] : 1995 29 From: Yadi Yen DO PCP: Care Physician,No Primary Status:ADM IN Location: U [id number] HPI - General General Date of Admission: 09/14/25 Date of Service: 09/14/25 Chief Complaint: Nausea/vomiting/diarrhea HPI Narrative LONNY ROLLINS, is a 29 M who presented to the emergency department [facility] on 09/13/2025 with chief complaint of intractable nausea with an episode of emesis and profuse watery diarrhea. Patient said no known sick contacts. He does have a history of adrenal insufficiency and is on hydrocortisone twice daily at baseline. He has had subjective fevers and chills, generalized body aches and abdominal discomfort with at least 3 bouts of watery diarrhea per hour. He has had no recent travel or antibiotic use. He did take an extra dose of steroids prior to coming in due to being ill but since he has not improved clinically presented to the emergency department. He states that his abdominal discomfort is hard to describe over the crampy in nature and intermittent. Vital signs on presentation showed temperature of 98.9, heart rate 136, respiratory 20, blood pressure is 117/75 and pulse ox was 94% on room air. CBC showed a leukocytosis with a white count of 13.9 and he does appear to be hemoconcentrated as his hemoglobin was 17.3. He does have a left shift with a 90.2% neutrophilia. Chemistry panel showed mild metabolic acidosis with a serum bicarb of 17.4, BUN of 24 with a serum creatinine 1.82 indicative of dehydration and BIENVENIDO, lactic acid was less than 1, magnesium of 1.3 and a mildly elevated direct bilirubin with a normal total bilirubin. Direct bilirubin was 0.44. Liver functions were normal. Lipase was 16. TSH was 0.635 and procalcitonin was 18.6. CT of the abdomen pelvis with oral contrast showed diffuse uniform wall thickening and edema and fluid distention of the terminal ileum, cecum, ascending and proximal two thirds of the transverse colon with mild surrounding fat stranding and associated prominent ileocolic and mesenteric lymph nodes that were thought to be inflammatory. In the emergency department he was treated with aggressive IV fluids, antiemetics and his heart rate remained elevated. Given his elevated procalcitonin ongoing tachycardia and diarrhea with his history of adrenal insufficiency inpatient status admission was pursued. He was started on vancomycin and Zosyn after cultures were obtained and oral vancomycin empirically for potential C. difficile infection. Stool studies were ordered and pending at the time of admission. [facility] Medical History (Updated 09/14/25 @ 05:[address] Yadi Yen, DO) Male pattern baldness Allergies GERD (gastroesophageal reflux disease) Eosinophilic esophagitis Growth hormone deficiency Asthma Adrenal insufficiency Home Medications ???Medication ???Instructions ???Recorded ???Last Taken ???Type cetirizine 10 mg tablet (24Hour 10 mg PO DAILY allergies 09/14/25 Unknown History Allergy) finasteride 1 mg tablet 1 mg PO DAILY urine flow 09/14/25 Unknown History fluticasone furoate 200 1 inh inhalation DAILY asthma 07/31 Unknown History mcg-vilanterol 25 mcg/dose inhalation powder (Breo Ellipta) hydrocortisone 5 mg tablet 5 mg PO 1400 adrenal insufficiency 09/14/25 Unknown History hydrocortisone 5 mg tablet 10 mg PO DAILY adrenal 09/14/25 Un known History insufficiency minoxidil 2.5 mg tablet 1.25 mg PO DAILY hairloss 09/14/25 Unknown History mometasone 50 mcg/actuation nasal 4 spray intranasal DAILY allergie s 09/14/25 Unknown History spray montelukast 10 mg tablet 10 mg PO QPM allergies 09/14/25 Un known History pantoprazole 40 mg tablet,delayed 40 mg PO BID GERD 09/14/25 Unknow n History release Allergy/AdvReac Type Severity Reaction Status Date / Time Fish Containing Products Allergy Food Verified 09/13/25 21:25 Allergy milk (dairy) Allergy Food Verified 09/13/25 21:25 Allergy nut - unspecified (nuts) Allergy Food Verified 09/13/25 21:25 Allergy shellfish derived Allergy Hives Verified 09/13/25 21:25 no significant family history no surgical history Social History (Updated 09/14/25 @ 05:[address] Yadi Yen DO) current occupational status: employed Smoking Status: Never smoker alcohol intake: never substance use type: does not use ROS Constitutional Constitutional: Reports anorexia, chills, fatigue, fever(s), malaise and weakness; Denies change in weight, night sweats or other Eyes Eyes: Denies blurry vision, change in eye color, change in vision, discharge from eye(s), double vision, erythema, (more content not included)... Normal [facility] L509.6002on 09-14-2025 CORTISOL 23.20 ug/dL High 2.68-10.50 [facility] Comment on above: Performed By: #### L 509.6002, L101.9900, L501.6710, L3100.5440 ####[facility] [address] [place], [address] Lactic Acidon 09-14-2025 Lactate [Moles/Vol] mmol/L Normal 0.0-2.0 [facility] Comment on above: Order Comment: Comme nts: MT will auto reorder repeat x1 at 4hr if result>2Y Performed By: #### L 503.6005, M200.1000 ####[facility] [address] [place], [place], [address] MR/CON.PCM.GIon 09-14-2025 MR/CON.PCM.GI [facility] Medical Records Department [address] [place] [address] Consultation - GI 09/14/25 1624 MR#: [id number] Acct: [id number] Name: LONNY ROLLINS RONNY Rep #: [id number] : 1995 29 From: Bartolo Alvarado DO PCP: Care Physician,No Primary Status:ADM IN Location: [place] [id number] HPI Consult Data Date of Consult: 09/14/25 HPI Narrative Reason for Consultation: Enterocolitis HPI Narrative: LONNY ROLLINS, is a 29-year-old male with a past medical history of adrenal insufficiency who presents to the hospital with subjective fevers, chills, generalized abdominal discomfort, and multiple bouts of watery diarrhea over the last 24 hours. He reports taking stress dose steroids today due to feeling unwell, but his symptoms did not improve. He denies any known sick contacts, recent antibiotic use, travel outside the country, or exposure to livestock. He reports recently eating eggs from chickens at home, which his mother provided, but he states they were cooked before consumption. He also ate stew prepared by his mother over the weekend; however, no other family members who ate the stew reported similar complaints. * Imaging:???CT abdomen and pelvis showed diffuse uniform wall thickening and edema with fluid dimension of the terminal ileum, cecum and extending and proximal two thirds of the transverse colon with mild surrounding fat stranding and associated prominent ileocolic and mesenteric lymph nodes possibly inflammatory. * Labs:???Stool enteric panel positive for???Salmonella.???C. difficile???screen negative. * Medications:???Currently on IV Zosyn. [facility] Medical History Male pattern baldness Allergies GERD (gastroesophageal reflux disease) Eosinophilic esophagitis Growth hormone deficiency Asthma Adrenal insufficiency Home Medications ???Medication ???Instructions ???Recorded ???Last Taken ???Type cetirizine 10 mg tablet (24Hour 10 mg PO DAILY allergies 09/14/25 Unknown History Allergy) finasteride 1 mg tablet 1 mg PO DAILY urine flow 09/14/25 Unknown History fluticasone furoate 200 1 inh inhalation DAILY asthma 07/31 Unknown History mcg-vilanterol 25 mcg/dose inhalation powder (Breo Ellipta) hydrocortisone 5 mg tablet 5 mg PO 1400 adrenal insufficiency 09/14/25 Unknown History hydrocortisone 5 mg tablet 10 mg PO DAILY adrenal 09/14/25 Un known History insufficiency minoxidil 2.5 mg tablet 1.25 mg PO DAILY hairloss 09/14/25 Unknown History mometasone 50 mcg/actuation nasal 4 spray intranasal DAILY allergie s 09/14/25 Unknown History spray montelukast 10 mg tablet 10 mg PO QPM allergies 09/14/25 Un known History pantoprazole 40 mg tablet,delayed 40 mg PO BID GERD 09/14/25 Unknow n History release Allergy/AdvReac Type Severity Reaction Status Date / Time Fish Containing Products Allergy Food Verified 09/13/25 21:25 Allergy milk (dairy) Allergy Food Verified 09/13/25 21:25 Allergy nut - unspecified (nuts) Allergy Food Verified 09/13/25 21:25 Allergy shellfish derived Allergy Hives Verified 09/13/25 21:25 Family History no significant family his Surgical History no surgical history Social History current occupational status: employed Smoking Status: Never smoker alcohol intake: never substance use type: does not use ROS Constitutional Constitutional: Reports anorexia, chills, fatigue, fever(s), malaise and weakness; Denies change in weight, night sweats or other Eyes Eyes: Denies blurry vision, change in eye color, change in vision, discharge from eye(s), double vision, erythema, eye pain, loss of vision or other ENT HEENT: Denies abnormal hearing, dysphagia, ear pain, epistaxis, headache(s), hearing loss, nasal congestion, nasal discharge, post nasal drip, sinus pressure, sore throat or other Cardiovascular Cardiovascular: Denies chest pain, claudication, dyspnea on exertion, edema, lightheadedness, orthopnea, palpitations, paroxysmal nocturnal dyspnea, rapid heart rate, syncope or other Respiratory/Chest Respiratory/Chest: Denies cough, dyspnea, excessive phlegm production, hemoptysis, productive cough, shortness of breath at rest, shortness of breath with exertion, wheezing or other Gastrointestinal Gastrointestinal: Reports abdominal pain, diarrhea, nausea and vomiting; Denies coffee ground emesis, constipation, dyspepsia, hematemesis, hematochezia, loose stools, melena or other Physical Exam Const alert, oriented x3, no apparent distress and healthy appearing General Appearance: cooperative GI normal to inspection, nondistended, normoactive bowel sounds, soft to palpation, non-tender and non- distended Percussion: normal (more content not included)... Normal [facility] Thyroid Stim Hormone (TSH)on 09-14-2025 TSH 0.635 uIU/mL Normal 0.300-4.200 [facility] Comment on above: Performed By: #### L 501.8562 #### [facility] Laboratory [facility] [address] [place], [place], [address] Abdomen/Pel W ORAL Cont Only on 09-13-2025 Abdomen/Pel W ORAL Cont Only [facility] Imaging Services [address] [place], [place] [address] Abdomen/Pel W ORAL Cont Only MR#: [id number] Acct: [id number] Name: LONNY ROLLINS Rep #: [id number] : 1995 M 29 From: Beulah portillo MD PCP: Care Physician,No Primary Status: REG ER Study: Abdomen/Pel W ORAL Cont Only Date of Exam: 06/30 Exam# [id number] Ordering Dr: Alfredo Elmore DO PROCEDURE: ABDOMEN/PEL W ORAL CONT ONLY 09/14/2025 REASON FOR EXAM: ABD PAIN TECHNIQUE: Procedure Code: CTABDPELPO Modality: CT Procedure: ABDOMEN/PEL W ORAL CONT ONLY Noncontrast technique limits evaluation of the abdominal and pelvic viscera. Coronal and Sagittal reconstruction series were provided. One or more dose reduction techniques were used (e.g., Automated exposure control, adjustment of the mA and/or kV according to patient size, use of iterative reconstruction technique). RADIATION DOSE SUMMARY: CTDI Vol 13.71 mGy DLP :713.64 mGycm COMPARISON: none FINDINGS: Diffuse uniform wall thickening and edema with fluid dimension of the terminal ileum, caecum, ascending and proximal 2/3 of the transverse colon with mild surrounding fat stranding and associated prominent ileocolic and mesenteric lymph nodes, possibly inflammatory. Advise clinical and laboratory correlation. The appendix appears unremarkable. The stomach is unremarkable. Average sized liver showing homogenous parenchymal attenuation. No dilated intra or extra-hepatic biliary tracts. Gall bladder showing no radiodense calculi. Normal unenhanced appearance of the pancreas with clear surrounding fat planes. The unenhanced spleen, adrenal glands, aorta and IVC are unremarkable. Both kidneys are of average size and showing smooth outline with preserved parenchymal thickness. No renal calculi. No hydronephrosis. Distension of the urinary bladder showing no obvious masses. No obvious masses related to the pelvic viscera. Mild free pelvic fluid No free air. Scanned osseous structures show no osseous destruction. Scanned lung bases show left basal atelectatic changes. CT/Abdomen/Pel W ORAL Cont Only IMPRESSION: Diffuse uniform wall thickening and edema with fluid dimension of the terminal ileum, caecum, ascending and proximal 2/3 of the transverse colon with mild surrounding fat stranding and associated prominent ileocolic and mesenteric lymph nodes, possibly inflammatory. Advise clinical and laboratory correlation. Reading Location: [place] [address] CC: Alfredo Elmore DO; No Primary Care Physician Production Material Coordinator: Signed Normal [facility] Basic Metabolic Profile (BMP )on 09-13-2025 BUN/CRE 13.3 RATIO Normal 10-20 [facility] Comment on above: Performed By: #### L 501.5200, L509.7001, L500.2500, L500.3400, L501.2450, L100.0100 ####[facility] [address] [place], [address] Calcium [Mass/Vol] 8.9 mg/dL Normal 7.6-11.0 [facility] Comment on above: Performed By: #### L 501.5200, L509.7001, L500.2500, L500.3400, L501.2450, L100.0100 ####[facility] [address] [place], [address] Chloride [Moles/Vol] 102 mmol/L Normal 98-108 [facility] Comment on above: Performed By: #### L 501.5200, L509.7001, L500.2500, L500.3400, L501.2450, L100.0100 ####[facility] [address] [place], [address] CO2 [Moles/Vol] 17.4 mmol/L Low 21.0-32.0 [facility] Comment on above: Performed By: #### L 501.5200, L509.7001, L500.2500, L500.3400, L501.2450, L100.0100 ####[facility] [address] [place], [address] Creatinine [Mass/Vol] 1.82 mg/dL High 0.70-1.20 [facility] Comment on above: Performed By: #### L 501.5200, L509.7001, L500.2500, L500.3400, L501.2450, L100.0100 ####[facility] [address] [place], [address] ECRCL 60.01 ml/min Normal 50-250 [facility] Comment on above: Performed By: #### L 501.5200, L509.7001, L500.2500, L500.3400, L501.2450, L100.0100 ####[facility] [address] [place], [address] GAP 15 Normal 5-15 [facility] Comment on above: Performed By: #### L 501.5200, L509.7001, L500.2500, L500.3400, L501.2450, L100.0100 ####[facility] [address] [place], [place], [address](243) GFR/1.73 sq M.predicted among non-blacks MDRD (S/P/Bld) [Vol rate/Area] 52 mL/min/{1.73_m2} Low >60 [facility] Comment on above: Result Comment: mL/m in/1.73m2 CKD-EPI Creatinine Equation (2020) Performed By: #### L 501.5200, L509.7001, L500.2500, L500.3400, L501.2450, L100.0100 ####[facility] [address] [place], [address] Glucose [Mass/Vol] 138 mg/dL High 70-99 [facility] Comment on above: Performed By: #### L 501.5200, L509.7001, L500.2500, L500.3400, L501.2450, L100.0100 ####[facility] [address] [place], [address] Potassium [Moles/Vol] 3.8 mmol/L Normal 3.3-5.1 [facility] Comment on above: Performed By: #### L 501.5200, L509.7001, L500.2500, L500.3400, L501.2450, L100.0100 ####[facility] [address] [place], [address] Sodium [Moles/Vol] 134 mmol/L Normal 133-145 [facility] Comment on above: Performed By: #### L 501.5200, L509.7001, L500.2500, L500.3400, L501.2450, L100.0100 ####[facility] [address] [place], [address] Urea nitrogen [Mass/Vol] 24 mg/dL High 4-19 [facility] Comment on above: Performed By: #### L 501.5200, L509.7001, L500.2500, L500.3400, L501.2450, L100.0100 ####[facility] [address] [place], [address] CBC W/Diff, Automatedon 11-0 8-2024 Absolute Lymph 0.41 X10 3/uL Low 0.83-4.51 [facility] Comment on above: Performed By: #### L 501.5200, L509.7001, L500.2500, L500.3400, L501.2450, L100.0100 ####[facility] [address] [place], [address] Absolute Neut 12.6 X10 3/uL High 2.0-7.7 [facility] Comment on above: Performed By: #### L 501.5200, L509.7001, L500.2500, L500.3400, L501.2450, L100.0100 ####[facility] [address] [place], [address] Basophils/100 WBC (Bld) 0.7 % Normal 0-1 [facility] Comment on above: Performed By: #### L 501.5200, L509.7001, L500.2500, L500.3400, L501.2450, L100.0100 ####[facility] [address] [place], [address] Eosinophils/100 WBC (Bld) 1.4 % Normal 0-5 [facility] Comment on above: Performed By: #### L 501.5200, L509.7001, L500.2500, L500.3400, L501.2450, L100.0100 ####[facility] [address] [place], [address] Erythrocyte distribution width (RBC) [Ratio] 12.0 % Normal 11.6-14.6 [facility] Comment on above: Performed By: #### L 501.5200, L509.7001, L500.2500, L500.3400, L501.2450, L100.0100 ####[facility] [address] [place], [address] Hematocrit (Bld) [Volume fraction] 49.5 % Normal 40-54 [facility] Comment on above: Performed By: #### L 501.5200, L509.7001, L500.2500, L500.3400, L501.2450, L100.0100 ####[facility] [address] [place], [address] Hemoglobin (Bld) [Mass/Vol] 17.3 g/dL High 13.0-16.5 [facility] Comment on above: Performed By: #### L 501.5200, L509.7001, L500.2500, L500.3400, L501.2450, L100.0100 ####[facility] [address] [place], [address] IG% 0.400 Normal 0.0-0.9 [facility] Comment on above: Result Comment: IG% - Immature Granulocytes (promyelocytes, myelocytes and metamyelocytes) > 1% indicates that a LEFT SHIFT is Present. Performed By: #### L 501.5200, L509.7001, L500.2500, L500.3400, L501.2450, L100.0100 ####[facility] [address] [place], [address] Lymphocytes/100 WBC (Bld) 2.9 % Low 19-41 [facility] Comment on above: Performed By: #### L 501.5200, L509.7001, L500.2500, L500.3400, L501.2450, L100.0100 ####[facility] [address] [place], [address] MCH (RBC) [Entitic mass] 29.6 pg Normal 27.0-32.0 [facility] Comment on above: Performed By: #### L 501.5200, L509.7001, L500.2500, L500.3400, L501.2450, L100.0100 ####[facility] [address] [place], [address] MCHC (RBC) [Mass/Vol] 34.9 g/dL Normal 32-36 [facility] Comment on above: Performed By: #### L 501.5200, L509.7001, L500.2500, L500.3400, L501.2450, L100.0100 ####[facility] [address] [place], [address] MCV (RBC) [Entitic vol] 84.6 fL Normal 80-94 [facility] Comment on above: Performed By: #### L 501.5200, L509.7001, L500.2500, L500.3400, L501.2450, L100.0100 ####[facility] [address] [place], [address] Monocytes/100 WBC (Bld) 4.4 % Normal 0-10 [facility] Comment on above: Performed By: #### L 501.5200, L509.7001, L500.2500, L500.3400, L501.2450, L100.0100 ####[facility] [address] [place], [address] Neutrophils/100 WBC (Bld) 90.2 % High 47-70 [facility] Comment on above: Performed By: #### L 501.5200, L509.7001, L500.2500, L500.3400, L501.2450, L100.0100 ####[facility] [address] [place], [address] Nucleated RBC (Bld) [#/Vol] 0 10*3/uL Normal 0-5 [facility] Comment on above: Performed By: #### L 501.5200, L509.7001, L500.2500, L500.3400, L501.2450, L100.0100 ####[facility] [address] [place], [address] Platelet mean volume (Bld) [Entitic vol] 11.7 fL Normal 6.2-12.0 [facility] Comment on above: Performed By: #### L 501.5200, L509.7001, L500.2500, L500.3400, L501.2450, L100.0100 ####[facility] [address] [place], [address] Platelets (Bld) [#/Vol] 275 10*3/uL Normal 150-450 [facility] Comment on above: Performed By: #### L 501.5200, L509.7001, L500.2500, L500.3400, L501.2450, L100.0100 ####[facility] [address] [place], [address] RBC (Bld) [#/Vol] 5.85 10*6/uL Normal 4.6-6.2 [facility] Comment on above: Performed By: #### L 501.5200, L509.7001, L500.2500, L500.3400, L501.2450, L100.0100 ####[facility] [address] [place], [address] RDW SD 37.0 fl Normal 35.1-43.9 [facility] Comment on above: Performed By: #### L 501.5200, L509.7001, L500.2500, L500.3400, L501.2450, L100.0100 ####[facility] [address] [place], [address] WBC (Bld) [#/Vol] 13.9 10*3/uL High 4.4-11.0 [facility] Comment on above: Performed By: #### L 501.5200, L509.7001, L500.2500, L500.3400, L501.2450, L100.0100 ####[facility] [address] [place], [address] Emergency Department Summary on 09-13-2025 Emergency Department Summary [facility] Medical Records Department [address] [place] [address] Emergency Department Summary 09/13/25 MR#: [id number] Acct: [id number] Name: LONNY ROLLINS Rep #: [id number] : 1995 29 From: Alfredo Elmore DO PCP: Care Physician,No Primary Status:REG ER Location: ED ADDENDUM by Dr. Celio Prado DO on 09/14/25 at 0442 7220: I discussed with hospitalist Dr. Yen who is agreeable to admission recommending also oral Vanco 09/14/25 0442 Cosigner Signature (if applicable): cc: No Primary Care Physician * Signed ADDENDUM by Dr. Celio Prado DO on 09/14/25 at 0436 I went to reassess the patient patient is tachycardic in the 140s 150s he is tachypneic does not feel well and his blood pressure is holding up we we will obtain blood cultures lactic acid we will cover him broadly with antibiotics and give him higher dose stress dose steroids 09/14/25 0436 Cosigner Signature (if applicable): cc: No Primary Care Physician * Signed ADDENDUM by Dr. Celio Prado DO on 09/14/25 at 0408 Patient was endorsed to me by outgoing physician pending CT abdomen and pelvis which showed inflammatory changes but no acute surgical pathology however patient remains tachycardic in the 140s we will go ahead and give an additional liter of fluids this will be his third liter if he does not have improvement he will require admission 09/14/25 0408 Cosigner Signature (if applicable): cc: No Primary Care Physician * Signed HPI History of Present Illness Chief Complaint: Diarrhea Informant: patient and family Narrative Narrative: This is patient is a 29-year-old male with past medical history of adrenal insufficiency. He states in the last 24 hours he has had subjective fevers and chills with generalized abdominal discomfort and multiple bouts of watery diarrhea. He denies any known sick contact. He denies any recent antibiotic use travel out of the country or exposure to livestock. He states he took stress dose steroids today because he was feeling unwell with symptoms of not improved and secondary to this he comes in for evaluation. [facility] Medical History Growth hormone deficiency Asthma Adrenal insufficiency Allergy/AdvReac Type Severity Reaction Status Date / Time Fish Containing Products Allergy Food Verified 09/13/25 21:25 Allergy milk (dairy) Allergy Food Verified 09/13/25 21:25 Allergy nut - unspecified (nuts) Allergy Food Verified 09/13/25 21:25 Allergy shellfish derived Allergy Hives Verified 09/13/25 21:25 Social History Smoking Status: Never smoker ROS [facility] ED Constitutional Constitutional ED: Reports chills, fever(s) and subjective Eyes Eyes: Denies change in vision ENT ENT ED: Denies sore throat Cardiovascular Cardiovascular: Denies chest pain Respiratory/Chest Respiratory/Chest: Denies cough or dyspnea Gastrointestinal Gastrointestinal: Reports abdominal pain, diarrhea, nausea and vomiting Genitourinary Genitourinary ED: Denies dysuria Musculoskeletal Musculoskeletal: Reports myalgias Integumentary Denies rash Neurologic Neurologic: Denies headache(s) Hematologic/Lymphatic Hematologic/Lymphatic: Denies easy bleeding or easy bruising EXAM Physical Exam Const Vital Signs: 09/13/25 21:08 09/13/25 23:28 Temperature 98.9 F Temperature Source Temporal Pulse Rate 136 H 125 H Respiratory Rate 20 H 16 Blood Pressure 117/75 113/65 Blood Pressure Mean 89 81 Pulse Ox 95 100 Oxygen Delivery Method Room Air Positive well nourished and well developed General Appearance ED: well developed; Negative for pallor HEENT Reports dry mucous membranes HEENT Narrative: Normocephalic atraumatic No tongue or lip swelling no oral lesions no airway edema or compromise No secondary findings in the posterior pharynx to suggest infection Mucous membranes are dry and tacky Mouth ED: Yes dry mucous membranes Mouth: dry mucous membranes Eyes PERRL and EOMs intact bilaterally General Eye ED: Negative for scleral icterus Neck supple Neck Narrative: No nuchal rigidity or meningeal signs Resp normal respiratory effort and clear to auscultation bilaterally Cardio regular rhythm Rate: tachycardic and other Other Details: Tachycardic rate irregular rhythm Radial and carotid pulses equal and symmetric GI non-distended and no masses GI Narrative: Soft and nondistended with hyperactive bowel sounds. There is mild diffuse pain with palpation without voluntary guarding or rigidity or pulsatile mass No peritoneal signs Auscultation: hyperactive bowel sounds Palpation: soft Extremity normal to inspection Neuro oriented x3, CN's I (more content not included)... Normal [facility] L509.7001on 09-13-2025 Procalcitonin 18.60 ng/mL High <=0.10 [facility] Comment on above: Result Comment: Inte rpretation: <0.10-0.25 ng/mL: Antibiotic therapy discouraged. Bacterial infection unlikely. 0.25-0.50 ng/mL: Antibiotic therapy encouraged. Bacterial infection possible. >0.50 ng/mL: Antibiotic therapy strongly encouraged. Suggestive of presence of bacterial infection. PCT should always be interpreted in the clinical context of the patient. Therefore, clinicians should use the PCT results in conjunction with other laboratory findings and clinical signs of the patient. Performed By: #### L 501.5200, L509.7001, L500.2500, L500.3400, L501.2450, L100.0100 ####[facility] [address] [place], [address] Lipaseon 09-13-2025 Lipase [Catalytic activity/Vol] 16 U/L Normal 13-75 [facility] Comment on above: Result Comment: Main woodson note: LIPASE revised reference range effective 23. New Lipase methodology. Expected to produce lower values than the previous assay method. NEW Reference Range: 13 - 75 U/L Performed By: #### L 501.5200, L509.7001, L500.2500, L500.3400, L501.2450, L100.0100 ####[facility] [address] [place], [address] Liver Profileon 09-13-2025 Albumin [Mass/Vol] 4.2 g/dL Normal 3.5-5.0 [facility] Comment on above: Performed By: #### L 501.5200, L509.7001, L500.2500, L500.3400, L501.2450, L100.0100 ####[facility] [address] [place], [address] ALK PHOS 56 U/L Normal 40-129 [facility] Comment on above: Performed By: #### L 501.5200, L509.7001, L500.2500, L500.3400, L501.2450, L100.0100 ####[facility] [address] [place], [address] ALT [Catalytic activity/Vol] 38 U/L Normal <=46 [facility] Comment on above: Performed By: #### L 501.5200, L509.7001, L500.2500, L500.3400, L501.2450, L100.0100 ####[facility] [address] [place], [address] AST [Catalytic activity/Vol] 31 U/L Normal <=37 [facility] Comment on above: Performed By: #### L 501.5200, L509.7001, L500.2500, L500.3400, L501.2450, L100.0100 ####[facility] [address] [place], [address] Bilirubin [Mass/Vol] 0.98 mg/dL Normal 0.00-1.30 [facility] Comment on above: Performed By: #### L 501.5200, L509.7001, L500.2500, L500.3400, L501.2450, L100.0100 ####[facility] [address] [place], [address] Bilirubin.direct [Mass/Vol] 0.44 mg/dL High 0.00-0.30 [facility] Comment on above: Performed By: #### L 501.5200, L509.7001, L500.2500, L500.3400, L501.2450, L100.0100 ####[facility] [address] [place], [address] Globulin (S) [Mass/Vol] 2.6 g/dL Normal 2.2-4.2 [facility] Comment on above: Performed By: #### L 501.5200, L509.7001, L500.2500, L500.3400, L501.2450, L100.0100 ####[facility] [address] [place], [address] T PROT 6.8 g/dL Normal 5.9-8.4 [facility] Comment on above: Performed By: #### L 501.5200, L509.7001, L500.2500, L500.3400, L501.2450, L100.0100 ####[facility] [address] [place], [address] Magnesiumon 09-13-2025 Magnesium [Mass/Vol] 1.3 mg/dL Low 1.5-2.2 [facility] Comment on above: Performed By: #### L 501.5200, L509.7001, L500.2500, L500.3400, L501.2450, L100.0100 ####[facility] [address] [place], [address] Comprehensive metabolic 2000 panelon 05-23-2024 Albumin BCP dye [Mass/Vol] 4.6 g/dL Normal 3.4-5.0 [facility] Comment on above: Performed By: #### 2 4323-8 #### VINCENZO Rodriguez ([id number]) [facility] ([facility]) [address] [place] [address] ALP [Catalytic activity/Vol] 59 U/L Normal 33-120 [facility] Comment on above: Performed By: #### 2 4323-8 #### VINCENZO Rodriguez ([id number]) [facility] ([facility]) [id number] [place] [address] ALT With P-5'-P [Catalytic activity/Vol] 34 U/L Normal 10-52 [facility] Comment on above: Result Comment: Lori ents treated with Sulfasalazine may generate falsely decreased results for ALT. Performed By: #### 2 4323-8 #### VINCENZO Rodriguez ([id number]) [facility] ([facility]) [address] [place] [address] Anion gap [Moles/Vol] 11 mmol/L Normal 10-20 [facility] Comment on above: Performed By: #### 2 4323-8 #### VINCENZO Rodriguez ([id number]) [facility] ([facility]) [address] [place] [address] AST With P-5'-P [Catalytic activity/Vol] 23 U/L Normal 9-39 [facility] Comment on above: Performed By: #### 2 4323-8 #### VINCENZO Rodriguez ([id number]) [facility] ([facility]) [address] [place] [address] Bilirubin [Mass/Vol] 1.1 mg/dL Normal 0.0-1.2 [facility] Comment on above: Performed By: #### 2 4323-8 #### VINCENZO Rodriguez ([id number]) [facility] ([facility]) [id number] [place] [address] Calcium [Mass/Vol] 9.6 mg/dL Normal 8.6-10.6 [facility] Comment on above: Performed By: #### 2 4323-8 #### VINCENZO Rodriguez ([id number]) [facility] ([facility]) [id number] [place] [address] Chloride [Moles/Vol] 105 mmol/L Normal 98-107 [facility] Comment on above: Performed By: #### 2 4323-8 #### VINCENZO Rodriguez ([id number]) [facility] ([facility]) [address] [place] [address] CO2 [Moles/Vol] 28 mmol/L Normal 21-32 [facility] Comment on above: Performed By: #### 2 4323-8 #### VINCENZO ZAVALETA L ([id number]) [facility] ([facility]) [id number] [place] [address] Creatinine [Mass/Vol] 0.91 mg/dL Normal 0.50-1.30 [facility] Comment on above: Performed By: #### 2 4323-8 #### VINCENZO ZAVALETA L ([id number]) [facility] ([facility]) [id number] [place] [address] GFR/1.73 sq M.predicted MDRD (S/P/Bld) [Vol rate/Area] mL/min/{1.73_m2} Normal >60 [facility] Comment on above: Result Comment: Calc ulations of estimated GFR are performed using the 2020 CKD-EPI Study Refit equation without the race variable for the IDMS-Traceable creatinine methods. https://jasn.asnjournals.org/content//ASN.75172351 88 Performed By: #### 2 4323-8 #### VINCENZO Rodriguez ([id number]) [facility] ([facility]) [id number] [place] [address] Glucose [Mass/Vol] 113 mg/dL High 74-99 [facility] Comment on above: Performed By: #### 2 4323-8 #### VINCENZO ZAVALETA L ([id number]) [facility] ([facility]) [address] [place] [address] Potassium [Moles/Vol] 3.9 mmol/L Normal 3.5-5.3 [facility] Comment on above: Performed By: #### 2 4323-8 #### VINCENZO ZAVALETA L ([id number]) [facility] ([facility]) [id number] [place] [address] Protein [Mass/Vol] 6.8 g/dL Normal 6.4-8.2 [facility] Comment on above: Performed By: #### 2 4323-8 #### VINCENZO BAHENAMOTZER L ([id number]) [facility] ([facility]) [address] [place] [address] Sodium [Moles/Vol] 140 mmol/L Normal 136-145 [facility] Comment on above: Performed By: #### 2 4323-8 #### VINCENZO BAHENAMOPATRICIOER L ([id number]) [facility] ([facility]) [address] [place] [address] Urea nitrogen [Mass/Vol] 7 mg/dL Normal 6-23 [facility] Comment on above: Performed By: #### 2 4323-8 #### VINCENZO BAHENAMOTZHYUN L ([id number]) [facility] ([facility]) [id number] [place] [address] Thyrotropinon 07-18-2024 TSH Qn 0.98 m[IU]/L Normal 0.44-3.98 [facility] Comment on above: Order Comment: TSH t esting is performed using different testing methodology at [facility] than at [facility]. Direct result comparisons should only be made within the same method. Performed By: #### 3 016-3 #### VINCENZO Rodriguez ([id number]) [facility] ([facility]) [address] [place] [address] Thyroxine.freeon 05-23-2024 Free T4 [Mass/Vol] 1.28 ng/dL Normal 0.78-1.48 [facility] Comment on above: Order Comment: Thyro xine Free testing is performed using different testing methodology at [facility] than at [facility]. Direct result comparisons should only be made within the same method. Performed By: #### 3 024-7 #### VINCENZO Rodriguez ([id number]) [facility] ([facility]) [address] [place] [id number] COMPREHENSIVE PANELon 2022 Albumin [Mass/Vol] 4.4 g/dL Normal 3.4 - 5.0 [facility] Comment on above: Performed By: #### V TDOH #### [facility] [address] [place] [address] ALP [Catalytic activity/Vol] 52 U/L Normal 33 - 120 [facility] Comment on above: Performed By: #### V TDOH #### [facility] [address] [place] [address] ALT [Catalytic activity/Vol] 20 U/L Normal 10 - 52 [facility] Comment on above: Result Comment: Lori ents treated with Sulfasalazine may generate falsely decreased results for ALT. Performed By: #### V TDOH #### [facility] [address] [place] [address] Anion gap [Moles/Vol] 15 mmol/L Normal 10 - 20 [facility] Comment on above: Performed By: #### V TDOH #### [facility] [address] [place] [address] AST [Catalytic activity/Vol] 18 U/L Normal 9 - 39 [facility] Comment on above: Performed By: #### V TDOH #### [facility] [address] [place] [address] Bilirubin [Mass/Vol] 0.9 mg/dL Normal 0.0 - 1.2 [facility] Comment on above: Performed By: #### V TDOH #### [facility] [address] [place] [address] Calcium [Mass/Vol] 9.6 mg/dL Normal 8.6 - 10.6 [facility] Comment on above: Performed By: #### V TDOH #### [facility] [address] [place] [address] Chloride [Moles/Vol] 107 mmol/L Normal 98 - 107 [facility] Comment on above: Performed By: #### V TDOH #### [facility] [address] [place] [address] Creatinine [Mass/Vol] 1.01 mg/dL Normal 0.50 - 1.30 [facility] Comment on above: Performed By: #### V TDOH #### [facility] [address] [place] [address] eGFR MALE >90 Normal >90 [facility] Comment on above: Result Comment: CALC ULATIONS OF ESTIMATED GFR ARE PERFORMED USING THE 2020 CKD-EPI STUDY REFIT EQUATION WITHOUT THE RACE VARIABLE FOR THE IDMS-TRACEABLE CREATININE METHODS. https://jasn.asnjournals.org/content//ASN.69918932 88 Performed By: #### V TDOH #### [facility] [address] [place] [address] Glucose [Mass/Vol] 74 mg/dL Normal 74 - 99 [facility] Comment on above: Performed By: #### V TDOH #### [facility] [address] [place] [address] HCO3 (Bld) [Moles/Vol] 25 mmol/L Normal 21 - 32 [facility] Comment on above: Performed By: #### V TDOH #### [facility] [address] [place] [address] Potassium [Moles/Vol] 3.3 mmol/L Low 3.5 - 5.3 [facility] Comment on above: Performed By: #### V TDOH #### [facility] [address] [place] [address] Protein [Mass/Vol] 6.6 g/dL Normal 6.4 - 8.2 [facility] Comment on above: Performed By: #### V TDOH #### [facility] [address] [place] [address] Sodium [Moles/Vol] 144 mmol/L Normal 136 - 145 [facility] Comment on above: Performed By: #### V TDOH #### [facility] [address] [place] [address] Urea nitrogen [Mass/Vol] 9 mg/dL Normal 6 - 23 [facility] Comment on above: Performed By: #### V TDOH #### [place] [id number] [place] [address] VITAMIN D, 25-HYDROXYon VITAMIN D, 25-HYDROXY 56 ng/mL Normal [facility] Comment on above: Result Comment: . DEFICIENCY: < 20 NG/ML INSUFFICIENCY: 20-29 NG/ML SUFFICIENCY: 30-100 NG/ML THIS ASSAY ACCURATELY QUANTIFIES THE SUM OF VITAMIN D3, 25-HYDROXY AND VIT D2,25-HYDROXY. Performed By: #### V TDOH #### [facility] [address] [place] [address] TESTOST,FREE AND TOTALon TESTOSTERONE TOT.LC/MS/MS 799 ng/dL Normal 250-1100 [facility] Comment on above: Result Comment: For additional information, please refer to http://education.Array Bridge/faq/ [email or web address] (This link is being provided for informational/ educational purposes only.) This test was developed and its analytical performance characteristics have been determined by [employer] [place], [place]. It has not been cleared or approved by the U.S. Food and Drug Administration. This assay has been validated pursuant to the CLIA regulations and is used for clinical purposes. Performed By: #### T ESFT #### [facility] [address] [place], [place] TESTOSTERONE,FREE 169.4 pg/mL High 35.0-155.0 [facility] Comment on above: Result Comment: This test was developed and its analytical performance characteristics have been determined by [employer] [place]. It has not been cleared or approved by the U.S. Food and Drug Administration. This assay has been validated pursuant to the CLIA regulations and is used for clinical purposes. Performed By: #### T ESFT #### [facility] [address] [place], [place] ACTHon 01-07-2023 ACTH 9.8 pg/mL Normal 7.2-63.3 [facility] Comment on above: Result Comment: INTE RPRETIVE INFORMATION: Adrenocorticotropic Hormone Reference interval based on samples collected between 7 a.m. and 10 a.m. No reference intervals established for p.m. collections. Pediatric reference values are the same as adults (Acta Paediatr Scand 1981;70:341-345). This assay measures intact ACTH 1-39; some types of synthetic ACTH and ACTH fragments are not detected by this assay. Performed By: [facility] [address] [place] [address] Transmission Design Engineer: Zak Oliver MD, PhD Performed By: #### A CT #### [employer] [address] [address] GROWTH HORMONEon 01-07-2023 GROWTH HORMONE <0.05 Low 0.05-3.00 [facility] Comment on above: Result Comment: Perf ormed By: [facility] [address] [place] [address] Transmission Design Engineer: Zak Oliver MD, PhD Performed By: #### G H #### [employer] [address] [address] INSULIN-LIKE GROWTH FACTOR 1 + Z-SCOREon 01-07-2023 IGF 1 Z SCORE CALCULATION 1.[address] [facility] Comment on above: Result Comment: INTE RPRETIVE INFORMATION: IGF 1 Z-SCORE CALCULATION A Z score is the number of standard deviations a given result is above (positive score) or below (negative score) the age- and sex-adjusted population mean. Results that are within the IGF-1 reference interval will have a Z score between -2.0 and +2.0. Performed By: [facility] [address] [place] [address] Transmission Design Engineer: Zak Oliver MD, PhD Performed By: #### I LGF1 #### [facility] [address] [place] [address] INSULIN-LIKE GROWTH FACTOR 274 ng/mL Normal 99-283 [facility] Comment on above: Performed By: #### I LGF1 #### [facility] [address] [place] [address] COMPREHENSIVE PANELon 2022 Albumin [Mass/Vol] 4.6 g/dL Normal 3.4 - 5.0 [facility] Comment on above: Performed By: #### V TDOH #### [facility] [address] [place] [address] ALP [Catalytic activity/Vol] 56 U/L Normal 33 - 120 [facility] Comment on above: Performed By: #### V TDOH #### [facility] [address] [place] [address] ALT [Catalytic activity/Vol] 16 U/L Normal 10 - 52 [facility] Comment on above: Result Comment: Lori ents treated with Sulfasalazine may generate falsely decreased results for ALT. Performed By: #### V TDOH #### [facility] [address] [place] [address] Anion gap [Moles/Vol] 13 mmol/L Normal 10 - 20 [facility] Comment on above: Performed By: #### V TDOH #### [facility] [address] [place] [address] AST [Catalytic activity/Vol] 18 U/L Normal 9 - 39 [facility] Comment on above: Performed By: #### V TDOH #### [facility] [address] [place] [address] Bilirubin [Mass/Vol] 1.0 mg/dL Normal 0.0 - 1.2 [facility] Comment on above: Performed By: #### V TDOH #### [facility] [address] [place] [address] Calcium [Mass/Vol] 9.9 mg/dL Normal 8.6 - 10.6 [facility] Comment on above: Performed By: #### V TDOH #### [facility] [address] [place] [address] Chloride [Moles/Vol] 104 mmol/L Normal 98 - 107 [facility] Comment on above: Performed By: #### V TDOH #### [facility] [address] [place] [address] Creatinine [Mass/Vol] 1.01 mg/dL Normal 0.50 - 1.30 [facility] Comment on above: Performed By: #### V TDOH #### [facility] [address] [place] [address] eGFR MALE >90 Normal >90 [facility] Comment on above: Result Comment: CALC ULATIONS OF ESTIMATED GFR ARE PERFORMED USING THE 2020 CKD-EPI STUDY REFIT EQUATION WITHOUT THE RACE VARIABLE FOR THE IDMS-TRACEABLE CREATININE METHODS. https://jasn.asnjournals.org/content//ASN.84893859 88 Performed By: #### V TDOH #### [facility] [address] [place] [address] Glucose [Mass/Vol] 77 mg/dL Normal 74 - 99 [facility] Comment on above: Performed By: #### V TDOH #### [facility] [address] [place] [address] HCO3 (Bld) [Moles/Vol] 30 mmol/L Normal 21 - 32 [facility] Comment on above: Performed By: #### V TDOH #### [facility] [address] [place] [address] Potassium [Moles/Vol] 3.6 mmol/L Normal 3.5 - 5.3 [facility] Comment on above: Performed By: #### V TDOH #### [facility] [address] [place] [address] Protein [Mass/Vol] 6.6 g/dL Normal 6.4 - 8.2 [facility] Comment on above: Performed By: #### V TDOH #### [facility] [address] [place] [address] Sodium [Moles/Vol] 143 mmol/L Normal 136 - 145 [facility] Comment on above: Performed By: #### V TDOH #### [facility] [address] [place] [address] Urea nitrogen [Mass/Vol] 8 mg/dL Normal 6 - 23 [facility] Comment on above: Performed By: #### V TDOH #### [facility] [address] [place] [address] CORTISOL,UNSPECIFIEDon 01-05 CORTISOL,UNSPECIFIE D 1.5 ug/dL Low 2.5 - 20.0 [facility] Comment on above: Performed By: #### V TDOH #### [facility] [address] [place] [address] FSH + LHon 01-05-2023 FOLLICLE STIM. HORMONE 2.4 IU/L Normal [facility] Comment on above: Result Comment: REF VALUES FOLLICULAR 2-12 MID-CYCLE 12-25 LUTEAL PHASE 2-12 MENOPAUSE 30-150 PREPUBERTY 50% ADULT ADULT MALE 2-10 INFANTS 0-1 Performed By: #### F SHLH #### [facility] [address] [place] [address] LUTEINIZING HORMONE 4.4 IU/L Normal [facility] Comment on above: Result Comment: REF VALUES FOLLICULAR PHASE 1.9-12.5 MID-CYCLE 8.7-76.3 LUTEAL PHASE 0.5-16.9 POST MENOPAUSE 5.0-55.2 CHILDREN 0- 6.0 ADULT MALE 18-70 1.5- 9.3 ADULT MALE >70 3.1-34.6 Performed By: #### F SHLH #### [facility] [address] [place] [address] LIPID PANEL (CORONARY RISK 2 )on 01-05-2023 Cholesterol [Mass/Vol] 121 mg/dL Normal 0 - 199 [facility] Comment on above: Result Comment: . AGE [...] dosing. Performed By: #### V TDOH #### [facility] [address] [place] [address] Cholesterol in HDL [Mass/Vol] 48.0 mg/dL Normal [facility] Comment on above: Result Comment: . AGE VERY LOW LOW NORMAL HIGH 0-19 Y < 35 < 40 40-45 ---- 20-24 Y ---- < 40 >45 ---- >24 Y ---- < 40 40-60 >60 . Performed By: #### V TDOH #### [facility] [address] [place] [address] Cholesterol in LDL [Mass/Vol] 62 mg/dL Normal 0 - 119 [facility] Comment on above: Result Comment: . NEAR BORD AGE DESIRABLE OPTIMAL HIGH HIGH VERY HIGH 0-19 Y 0 - 109 --- 110-129 >/= 130 ---- 20-24 Y 0 - 119 --- 120-159 >/= 160 ---- >24 Y 0 - 99 100-129 130-159 160-189 >/=190 . Performed By: #### V TDOH #### [facility] [address] [place] [address] Cholesterol in VLDL [Mass/Vol] 11 mg/dL Normal 0 - 40 [facility] Comment on above: Performed By: #### V TDOH #### [facility] [address] [place] [address] Cholesterol.total/C holesterol in HDL [Mass ratio] 2.5 {ratio} Normal [facility] Comment on above: Result Comment: REF VALUES DESIRABLE < 3.4 HIGH RISK > 5.0 Performed By: #### V TDOH #### [facility] [address] [place] [address] Triglyceride [Mass/Vol] 56 mg/dL Normal 0 - 149 [facility] Comment on above: Result Comment: . AGE [...] dosing. Performed By: #### V TDOH #### [facility] [address] [place] [id number] PROLACTINon 01-05-2023 PROLACTIN 14.2 ug/L Normal 2.0 - 18.0 [facility] Comment on above: Performed By: #### V TDOH #### [facility] [address] [place] [id number] THYROXINE,FREEon 01-05-2023 THYROXINE,FREE 1.21 ng/dL Normal 0.78 - 1.48 [facility] Comment on above: Result Comment: Thyr oxine Free testing is performed using different testing methodology at [facility] than at [facility]. Direct result comparisons should only be made within the same method. Performed By: #### T 4FRE #### [facility] [address] [place] [address] TSHon 01-05-2023 TSH Qn 1.22 m[IU]/L Normal 0.44 - 3.98 [facility] Comment on above: Result Comment: TSH testing is performed using different testing methodology at [facility] than at other [facility]. Direct result comparisons should only be made within the same method. Performed By: #### T SH2 #### [facility] [address] [place] [address] VITAMIN D, 25-HYDROXYon VITAMIN D, 25-HYDROXY 63 ng/mL Normal [facility] Comment on above: Result Comment: . DEFICIENCY: < 20 NG/ML INSUFFICIENCY: 20-29 NG/ML SUFFICIENCY: 30-100 NG/ML THIS ASSAY ACCURATELY QUANTIFIES THE SUM OF VITAMIN D3, 25-HYDROXY AND VIT D2,25-HYDROXY. Performed By: #### V TDOH #### [facility] [address] [place] [address] HEMOGLOBIN A1Con 01-04-2023 Glucose [Mass/Vol] 91 mg/dL Normal [facility] Comment on above: Performed By: #### H BA1E #### [facility] [address] [place] [address] HbA1c (Bld) [Mass fraction] 4.8 % Normal [facility] Comment on above: Result Comment: Diag nosis of Diabetes-Adults Non-Diabetic: < or = 5.6% Increased risk for developing diabetes: 5.7-6.4% Diagnostic of diabetes: > or = 6.5% . Monitoring of Diabetes Age (y) Therapeutic Goal (%) Adults: >18 <7.0 Pediatrics: 13-18 <7.5 7-12 <8.0 0- 6 7.5-8.5 [employer]. Diabetes Care 33(S1), Nov 2009. Performed By: #### H BA1E #### [facility] [address] [place] [address] CNCOon 10-18-2021 CNCO Letter Text Normal [facility] [place] Repairon 06-13-2020 Donna Allen MD [...] of procedure: Tolerated well, no immediate complications [place], [place] Testosterone, Tot/Fron 02-18 Testosterone [Mass/Vol] 521 ng/dL Normal 240-950 [facility] Comment on above: Performed By: #### C BCDIF, DHEAS, FSH, FT4, FREET3, LH, XB12F, CMP, PROL, TSH, VITD #### [facility] [address] [phone] #### COR, GH, ACTH, ILGF1 #### [facility] [address] [place] [phone] Testosterone, Free 13.5 ng/dL Normal 5.25-20.7 [facility] Comment on above: Performed By: #### C BCDIF, DHEAS, FSH, FT4, FREET3, LH, XB12F, CMP, PROL, TSH, VITD #### [facility] [address] [phone] #### COR, GH, ACTH, ILGF1 #### [facility] [address] [place] [address] ACTHon 02-17-2020 ACTH 12 pg/mL Normal <47 [facility] Comment on above: Performed By: #### C BCDIF, DHEAS, FSH, FT4, FREET3, LH, XB12F, CMP, PROL, TSH, VITD #### [facility] [address] [phone] #### COR, GH, ACTH, ILGF1 #### [facility] [address] [place] [phone] Growth Hormoneon 02-17-2020 Growth Hormone Normal <1.00 [facility] Comment on above: Result Comment: 0.10 Test analyzed by the [employer] mehod. Performed By: #### C BCDIF, DHEAS, FSH, FT4, FREET3, LH, XB12F, CMP, PROL, TSH, VITD #### [facility] [address] [place] [phone] #### COR, GH, ACTH, ILGF1 #### [facility] [address] [place] [phone] Insulin Lik Gr Fac 1on 02-16 Insulin Lik Gr Fac 1 474 ng/mL High 120-338 [facility] Comment on above: Performed By: #### C BCDIF, DHEAS, FSH, FT4, FREET3, LH, XB12F, CMP, PROL, TSH, VITD #### [facility] [address] [place] [phone] #### COR, GH, ACTH, ILGF1 #### [facility] [address] [place] [phone] CBC and Differentialon 02-13 Abs Baso 0.06 k/uL Normal <0.11 [facility] Comment on above: Performed By: #### C BCDIF, DHEAS, FSH, FT4, FREET3, LH, XB12F, CMP, PROL, TSH, VITD #### [facility] [address] [place] [address] #### COR, GH, ACTH, ILGF1 #### [facility] [address] [place] [phone] Abs [place] 0.60 k/uL Normal <0.87 [facility] Comment on above: Performed By: #### C BCDIF, DHEAS, FSH, FT4, FREET3, LH, XB12F, CMP, PROL, TSH, VITD #### [facility] [address] [place] [phone] #### COR, GH, ACTH, ILGF1 #### [facility] [address] [place] [phone] Abs Neut 3.82 k/uL Normal 1.45-7.50 [facility] Comment on above: Performed By: #### C BCDIF, DHEAS, FSH, FT4, FREET3, LH, XB12F, CMP, PROL, TSH, VITD #### [facility] [address] [place] [phone] #### COR, GH, ACTH, ILGF1 #### [facility] [address] [place] [phone] Absolute nRBC <0.01 Normal <0.01 [facility] Comment on above: Performed By: #### C BCDIF, DHEAS, FSH, FT4, FREET3, LH, XB12F, CMP, PROL, TSH, VITD #### [facility] [address] [place] [phone] #### COR, GH, ACTH, ILGF1 #### [facility] [address] [place] [phone] Basophils/100 WBC (Bld) 0.8 % Normal [facility] Comment on above: Performed By: #### C BCDIF, DHEAS, FSH, FT4, FREET3, LH, XB12F, CMP, PROL, TSH, VITD #### [facility] [address] [place] [phone] #### COR, GH, ACTH, ILGF1 #### [facility] [address] [place] [phone] DTYPE ADIFF Normal [facility] Comment on above: Performed By: #### C BCDIF, DHEAS, FSH, FT4, FREET3, LH, XB12F, CMP, PROL, TSH, VITD #### [facility]ine Lab [address] [place] [phone] #### COR, GH, ACTH, ILGF1 #### [facility] [address] [place] [phone] Eosinophils (Bld) [#/Vol] 0.15 10*3/uL Normal <0.46 [facility] Comment on above: Performed By: #### C BCDIF, DHEAS, FSH, FT4, FREET3, LH, XB12F, CMP, PROL, TSH, VITD #### [facility] [address] [place] [phone] #### COR, GH, ACTH, ILGF1 #### [facility] [address] [place] [phone] Eosinophils/100 WBC (Bld) 2.1 % Normal [facility] Comment on above: Performed By: #### C BCDIF, DHEAS, FSH, FT4, FREET3, LH, XB12F, CMP, PROL, TSH, VITD #### [facility] [address] [place] [phone] #### COR, GH, ACTH, ILGF1 #### [facility] [address] [place] [phone] Erythrocyte distribution width (RBC) [Ratio] 12.0 % Normal 11.5-15.0 [facility] Comment on above: Performed By: #### C BCDIF, DHEAS, FSH, FT4, FREET3, LH, XB12F, CMP, PROL, TSH, VITD #### [facility] [address] [place] [phone] #### COR, GH, ACTH, ILGF1 #### [facility] [address] [place] [address] Hematocrit (Bld) [Volume fraction] 47.0 % Normal 39.0-51.0 [facility] Comment on above: Performed By: #### C BCDIF, DHEAS, FSH, FT4, FREET3, LH, XB12F, CMP, PROL, TSH, VITD #### [facility] [address] [place] [phone] #### COR, GH, ACTH, ILGF1 #### [facility] [address] [place] [phone] Hemoglobin (Bld) [Mass/Vol] 16.1 g/dL Normal 13.0-17.0 [facility] Comment on above: Performed By: #### C BCDIF, DHEAS, FSH, FT4, FREET3, LH, XB12F, CMP, PROL, TSH, VITD #### [facility] [address] [place] [phone] #### COR, GH, ACTH, ILGF1 #### [facility] [address] [place] [phone] Lymphocytes (Bld) [#/Vol] 2.53 10*3/uL Normal 1.00-4.00 [facility] Comment on above: Performed By: #### C BCDIF, DHEAS, FSH, FT4, FREET3, LH, XB12F, CMP, PROL, TSH, VITD #### [facility] [address] [place] [address] #### COR, GH, ACTH, ILGF1 #### [facility] [address] [place] [address] Lymphocytes/100 WBC (Bld) 35.2 % Normal [facility] Comment on above: Performed By: #### C BCDIF, DHEAS, FSH, FT4, FREET3, LH, XB12F, CMP, PROL, TSH, VITD #### [facility] [address] [place] [phone] #### COR, GH, ACTH, ILGF1 #### [facility] [address] [place] [address] MCH (RBC) [Entitic mass] 30.1 pG Normal 26.0-34.0 [facility] Comment on above: Performed By: #### C BCDIF, DHEAS, FSH, FT4, FREET3, LH, XB12F, CMP, PROL, TSH, VITD #### [facility] [address] [place] [phone] #### COR, GH, ACTH, ILGF1 #### [facility] [facility] [address] [place] [phone] MCHC (RBC) [Mass/Vol] 34.3 g/dL Normal 30.5-36.0 [facility] Comment on above: Performed By: #### C BCDIF, DHEAS, FSH, FT4, FREET3, LH, XB12F, CMP, PROL, TSH, VITD #### [facility] Routine Lab [address] [place] [phone] #### COR, GH, ACTH, ILGF1 #### [facility] [address] [place] [phone] MCV (RBC) [Entitic vol] 88.0 fL Normal 80.0-100.0 [facility] Comment on above: Performed By: #### C BCDIF, DHEAS, FSH, FT4, FREET3, LH, XB12F, CMP, PROL, TSH, VITD #### [facility] Routine Lab [address] [place] [phone] #### COR, GH, ACTH, ILGF1 #### [facility] [address] [place] [address] Monocytes/100 WBC (Bld) 8.4 % Normal [facility] Comment on above: Performed By: #### C BCDIF, DHEAS, FSH, FT4, FREET3, LH, XB12F, CMP, PROL, TSH, VITD #### [facility] Routine Lab [address] [place] [phone] #### COR, GH, ACTH, ILGF1 #### [facility] [address] [place] [phone] Neutrophils/100 WBC (Bld) 53.5 % Normal [facility] Comment on above: Performed By: #### C BCDIF, DHEAS, FSH, FT4, FREET3, LH, XB12F, CMP, PROL, TSH, VITD #### [facility] Routine Lab [address] [place] [phone] #### COR, GH, ACTH, ILGF1 #### [facility] [address] [place] [phone] NRBCs 0.0 /100 WBC Normal 0 [facility] Comment on above: Performed By: #### C BCDIF, DHEAS, FSH, FT4, FREET3, LH, XB12F, CMP, PROL, TSH, VITD #### [facility] Routine Lab [address] [place] [phone] #### COR, GH, ACTH, ILGF1 #### [facility] [address] [place] [phone] Platelet mean volume (Bld) [Entitic vol] 12.5 fL Normal 9.0-12.7 [facility] Comment on above: Performed By: #### C BCDIF, DHEAS, FSH, FT4, FREET3, LH, XB12F, CMP, PROL, TSH, VITD #### [facility] Routine [facility] [address] [place] [phone] #### COR, GH, ACTH, ILGF1 #### [facility] [address] [place] [address] Platelets (Bld) [#/Vol] 281 10*3/uL Normal 150-400 [facility] Comment on above: Performed By: #### C BCDIF, DHEAS, FSH, FT4, FREET3, LH, XB12F, CMP, PROL, TSH, VITD #### [facility] Routine [facility] [address] [place] [phone] #### COR, GH, ACTH, ILGF1 #### [facility] [address] [place] [phone] RBC (Bld) [#/Vol] 5.34 10*6/uL Normal 4.20-6.00 [facility] Reference Lab Comment on above: Performed By: #### C BCDIF, DHEAS, FSH, FT4, FREET3, LH, XB12F, CMP, PROL, TSH, VITD #### [facility] Routine Lab [address] [place] [phone] #### COR, GH, ACTH, ILGF1 #### [facility] [address] [place] [phone] WBC (Bld) [#/Vol] 7.18 10*3/uL Normal 3.70-11.00 [facility] Comment on above: Performed By: #### C BCDIF, DHEAS, FSH, FT4, FREET3, LH, XB12F, CMP, PROL, TSH, VITD #### [facility] Routine Lab [address] [place] [phone] #### COR, GH, ACTH, ILGF1 #### [facility] [address] [place] [address] Comp Metabolic Panelon 02-13 Albumin [Mass/Vol] 4.8 g/dL Normal 3.9-4.9 [facility] Reference [facility] Comment on above: Performed By: #### C BCDIF, DHEAS, FSH, FT4, FREET3, LH, XB12F, CMP, PROL, TSH, VITD #### [facility] Routine [facility] [address] [place] [phone] #### COR, GH, ACTH, ILGF1 #### [facility] [address] [place] [phone] ALP [Catalytic activity/Vol] 55 U/L Normal 38-113 [facility] Comment on above: Performed By: #### C BCDIF, DHEAS, FSH, FT4, FREET3, LH, XB12F, CMP, PROL, TSH, VITD #### [facility] [address] [place] [phone] #### COR, GH, ACTH, ILGF1 #### [facility] [address] [place] [phone] ALT [Catalytic activity/Vol] 15 U/L Normal 10-54 [facility] Comment on above: Performed By: #### C BCDIF, DHEAS, FSH, FT4, FREET3, LH, XB12F, CMP, PROL, TSH, VITD #### [facility] [address] [place] [phone] #### COR, GH, ACTH, ILGF1 #### [facility] [address] [place] [phone] Anion gap [Moles/Vol] 15 mmol/L Normal 9-18 [facility] Comment on above: Performed By: #### C BCDIF, DHEAS, FSH, FT4, FREET3, LH, XB12F, CMP, PROL, TSH, VITD #### [facility] [address] [place] [phone] #### COR, GH, ACTH, ILGF1 #### [facility] [address] [place] [phone] AST [Catalytic activity/Vol] 20 U/L Normal 14-40 [facility] Comment on above: Performed By: #### C BCDIF, DHEAS, FSH, FT4, FREET3, LH, XB12F, CMP, PROL, TSH, VITD #### [facility] [address] [place] [phone] #### COR, GH, ACTH, ILGF1 #### [facility] [address] [place] [address] Bilirubin Ql (U) 1.1 mg/dL Normal 0.2-1.3 [facility] Reference [facility] Comment on above: Performed By: #### C BCDIF, DHEAS, FSH, FT4, FREET3, LH, XB12F, CMP, PROL, TSH, VITD #### [facility] Routine Lab [address] [place] [phone] #### COR, GH, ACTH, ILGF1 #### [facility] [address] [place] [phone] Calcium [Mass/Vol] 9.7 mg/dL Normal 8.5-10.2 [facility] Comment on above: Performed By: #### C BCDIF, DHEAS, FSH, FT4, FREET3, LH, XB12F, CMP, PROL, TSH, VITD #### [facility] Routine Lab [address] [place] [address] #### COR, GH, ACTH, ILGF1 #### [facility] [address] [place] [phone] Chloride [Moles/Vol] 105 mmol/L Normal 97-105 [facility] Comment on above: Performed By: #### C BCDIF, DHEAS, FSH, FT4, FREET3, LH, XB12F, CMP, PROL, TSH, VITD #### [facility] [address] [place] [address] #### COR, GH, ACTH, ILGF1 #### [facility] [address] [place] [address] CO2 [Moles/Vol] 21 mmol/L Low 22-30 [facility] Comment on above: Performed By: #### C BCDIF, DHEAS, FSH, FT4, FREET3, LH, XB12F, CMP, PROL, TSH, VITD #### [facility]ine [facility] [address] [place] [address] #### COR, GH, ACTH, ILGF1 #### [facility] [address] [place] [address] Creatinine [Mass/Vol] 0.94 mg/dL Normal 0.73-1.22 [facility] Comment on above: Performed By: #### C BCDIF, DHEAS, FSH, FT4, FREET3, LH, XB12F, CMP, PROL, TSH, VITD #### [facility] Routine Lab [address] [place] [phone] #### COR, GH, ACTH, ILGF1 #### [facility] [address] [place] [address] eGFR- Amer. >60 Normal [facility] Reference Lab Comment on above: Performed By: #### C BCDIF, DHEAS, FSH, FT4, FREET3, LH, XB12F, CMP, PROL, TSH, VITD #### [facility] Routine Lab [address] [place] [phone] #### COR, GH, ACTH, ILGF1 #### [facility] [address] [place] [address] GFR/1.73 sq M predicted among non-blacks MDRD (S/P/Bld) [Vol rate/Area] mL/min/{1.73_m2} Normal [facility] Comment on above: Performed By: #### C BCDIF, DHEAS, FSH, FT4, FREET3, LH, XB12F, CMP, PROL, TSH, VITD #### [facility] [address] [place] [phone] #### COR, GH, ACTH, ILGF1 #### [facility] [address] [place] [phone] Glucose [Mass/Vol] 85 mg/dL Normal 74-99 [facility] Comment on above: Performed By: #### C BCDIF, DHEAS, FSH, FT4, FREET3, LH, XB12F, CMP, PROL, TSH, VITD #### [facility] Routine Lab [address] [place] [phone] #### COR, GH, ACTH, ILGF1 #### [facility] [address] [place] [phone] Potassium [Moles/Vol] 3.6 mmol/L Low 3.7-5.1 [facility] Comment on above: Performed By: #### C BCDIF, DHEAS, FSH, FT4, FREET3, LH, XB12F, CMP, PROL, TSH, VITD #### [facility] Rout[facility] [address] [place] [phone] #### COR, GH, ACTH, ILGF1 #### [facility] [address] [place] [phone] Protein [Mass/Vol] 7.1 g/dL Normal 6.3-8.0 [facility] Comment on above: Performed By: #### C BCDIF, DHEAS, FSH, FT4, FREET3, LH, XB12F, CMP, PROL, TSH, VITD #### [facility]ine Lab [address] [place] [address] #### COR, GH, ACTH, ILGF1 #### [facility] [address] [place] [phone] Sodium [Moles/Vol] 141 mmol/L Normal 136-144 [facility] Comment on above: Performed By: #### C BCDIF, DHEAS, FSH, FT4, FREET3, LH, XB12F, CMP, PROL, TSH, VITD #### [facility] Routine Lab [address] [place] [phone] #### COR, GH, ACTH, ILGF1 #### [facility] [address] [place] [phone] Urea nitrogen [Mass/Vol] 10 mg/dL Normal 9-24 [facility] Comment on above: Performed By: #### C BCDIF, DHEAS, FSH, FT4, FREET3, LH, XB12F, CMP, PROL, TSH, VITD #### [facility] Routine Lab [address] [place] [phone] #### COR, GH, ACTH, ILGF1 #### [facility] [address] [place] [phone] Cortisolon 02-14-2020 Cortisol <0.5 Normal [facility] Comment on above: Performed By: #### C BCDIF, DHEAS, FSH, FT4, FREET3, LH, XB12F, CMP, PROL, TSH, VITD #### [facility] Routine Lab [address] [place] [phone] #### COR, GH, ACTH, ILGF1 #### [facility] [address] [place] [phone] DHEA-Son 02-14-2020 DHEA-S 64.9 ug/dL Low 211.0-492.0 [facility] Comment on above: Performed By: #### C BCDIF, DHEAS, FSH, FT4, FREET3, LH, XB12F, CMP, PROL, TSH, VITD #### [facility]ine Lab [address] [place] [phone] #### COR, GH, ACTH, ILGF1 #### [facility] [address] [place] [phone] FSHon 02-14-2020 FSH 1.9 mU/mL Normal 1.5-12.4 [facility] Comment on above: Performed By: #### C BCDIF, DHEAS, FSH, FT4, FREET3, LH, XB12F, CMP, PROL, TSH, VITD #### [facility] Routine Lab [address] [place] [phone] #### COR, GH, ACTH, ILGF1 #### [facility] [address] [place] [phone] Free T3on 02-14-2020 Free T3 [Mass/Vol] 3.9 pg/mL Normal 2.3-4.1 [facility] Reference [facility] Comment on above: Performed By: #### C BCDIF, DHEAS, FSH, FT4, FREET3, LH, XB12F, CMP, PROL, TSH, VITD #### [facility] Routine Lab [address] [place] [phone] #### COR, GH, ACTH, ILGF1 #### [facility] [address] [place] [phone] Free T4on 02-14-2020 Free T4 [Mass/Vol] 1.3 ng/dL Normal 0.9-1.7 [facility] Reference [facility] Comment on above: Performed By: #### C BCDIF, DHEAS, FSH, FT4, FREET3, LH, XB12F, CMP, PROL, TSH, VITD #### [facility] Routine Lab [address] [place] [phone] #### COR, GH, ACTH, ILGF1 #### [facility] [address] [place] [phone] LHon 02-14-2020 LH 6.2 mU/mL Normal 1.8-10.8 [facility] Comment on above: Performed By: #### C BCDIF, DHEAS, FSH, FT4, FREET3, LH, XB12F, CMP, PROL, TSH, VITD #### [facility] Routine Lab [address] [place] [phone] #### COR, GH, ACTH, ILGF1 #### [facility] [address] [place], [place] [phone] Prolactinon 02-14-2020 Prolactin 16.3 ng/mL High 4.0-15.2 [facility] Comment on above: Performed By: #### C BCDIF, DHEAS, FSH, FT4, FREET3, LH, XB12F, CMP, PROL, TSH, VITD #### [facility] Routine Lab [address] [place] [phone] #### COR, GH, ACTH, ILGF1 #### [facility] [address] [place] [phone] TSHon 02-14-2020 TSH Qn 2.450 uU/mL Normal 0.270-4.200 [facility] Comment on above: Performed By: #### C BCDIF, DHEAS, FSH, FT4, FREET3, LH, XB12F, CMP, PROL, TSH, VITD #### [facility] Routine Lab [address] [place] [phone] #### COR, GH, ACTH, ILGF1 #### [facility] [address] [place] [phone] Vit B12 / Folate For Ref Lab Use Onlyon 02-14-2020 Cobalamin (Vitamin B12) [Mass/Vol] 479 pg/mL Normal 232-1245 [facility] Comment on above: Performed By: #### C BCDIF, DHEAS, FSH, FT4, FREET3, LH, XB12F, CMP, PROL, TSH, VITD #### [facility] Routine Lab [address] [place] [address] #### COR, GH, ACTH, ILGF1 #### [facility] [address] [place] [address] Folate [Mass/Vol] 8.6 ng/mL Normal >4.7 [facility] Reference Lab Comment on above: Performed By: #### C BCDIF, DHEAS, FSH, FT4, FREET3, LH, XB12F, CMP, PROL, TSH, VITD #### [facility] Routine Lab [address] [place] [address] #### COR, GH, ACTH, ILGF1 #### [facility] [address] [place] [phone] Vitamin D 25 Hydroxyon 02-13 Vitamin D 25 Hydroxy 14.0 ng/mL Low 31.0-80.0 [facility] Comment on above: Performed By: #### C BCDIF, DHEAS, FSH, FT4, FREET3, LH, XB12F, CMP, PROL, TSH, VITD #### [facility] Routine Lab [address] [place] [address] #### COR, GH, ACTH, ILGF1 #### [facility] [address] [place] [address] Vital Signs Date Time Vital Sign Value Performing Clinician Camillei talia 06-13-2020 20:46-0400 Body Temperature 98.2 [degF] [facility], [place] 06-13-2020 20:46-0400 BP Diastolic 99 mm[Hg] [facility] , [place] 06-13-2020 20:46-0400 BP Systolic 139 mm[Hg] [facility] , [place] 06-13-2020 20:46-0400 Pulse (Heart Rate) 89 /min [facility]-13-2020 20:46-0400 Pulse Oximetry 96 % Donna Allen [facility] ABDIFATAH 06-13-2020 20:46-0400 Respiratory Rate 16 /min [facility] HABDIFATAH Encounters Encounter Date Encounter Type Care Provider Facility Start: 09-14-2025 ambulatory No Primary Car e Physician Facility:[facility] Start: 09-14-2025 Evaluation and management of inpatient Eleanor Cassidy Facility:[facility] Start: 05-23-2024 End: 05-23-2024 [facility] Start: 06-13-2020 End: 06-13-2020 Emergency department patient visit Donna Allen Work Phone: [facility] ED Comment on above: Facial laceration, i nitial encounter (Primary Dx) Procedures Date Procedure Procedure Detail Performing Clinician Start: 06-13-2020 LACERATION REPAIR Donna Allen Work Phone: Plan of Treatment Date Care Activity Detail Author Start: 07-07-2020 Influenza vaccination Flu vaccine (# 1) [place], [place] Payers Date Payer Category Payer Self-pay 2023 Unknown [id number] 1995 Unknown [id number] Unknown [id number] [id number] Unknown [id number] [id number] Unknown [id number] [id number] [id number] Social History Date Type Detail Facility [facility]: [facility] [place] Start: 06-13-2020 Tobacco use and exposure Never used [place] Start: 06-13-2020 Alcohol intake Lifetime non-d rolan (finding) [place] Start: 06-13-2020 History SDOH Alcohol Frequency 1 [place], [place] Sex Assigned At Not on file [place] Exposure to SARS-CoV -2 (event) Not sure [place] Summary Purpose Family History No Family History [...] through Care Everywhere. * Facial Laceration: Stitches ([place]ian) documented in this encounter Assessments Diagnosis Facial laceration, initial encounter Additional Source Comments (unrecognized sect ion and content) No Status Records FoundNo Status Records FoundNo Status Records FoundNo Status Records FoundNo Status Records Found INFORMATION SOURCE (unrecogn ized section and content) DATE CREATED AUTHOR 02/19/2020 [facility] DATE CREATED AUTHOR AUTHOR'S ORGANIZ ATION 10/19/2021 [facility] DATE CREATED AUTHOR AUTHOR'S ORGANIZ ATION 07/16/2023 [facility] DATE CREATED AUTHOR AUTHOR'S ORGANIZ ATION 05/29/2024 [facility] DATE CREATED AUTHOR AUTHOR'S ORGANIZ ATION 09/15/2025 [facility] Reason for Visit (unrecogniz ed section [...] BE BASED ON THE PRIMARY CLINICAL RECORDS. I AM AT [facility]. provides no warranty or guarantee of the accuracy or completeness of information in this document.
--- NOTE | 2025-09-15 09:34 | CASEMGMT ---
Dx: N/V/D, BIENVENIDO LACE: 1 6-Clicks: 22 Medical record reviewed and patient evaluated for identification of discharge planning needs. Based on this review, at this time criteria are not present to indicate a need for discharge planning. Will remain available to assist with discharge planning needs as identified or requested.
[2025-09-15] MEDS: Fluticasone 0.05% 1 SPRAY NASAL.SRY 4 SPRAY NASAL (09:44)
--- NOTE | 2025-09-15 10:32 | PN_ITS ---
Subjective Subjective Patient seen and examined with his nurse by his bedside. He still complains of abdominal pain but it is improving. He still has some episodes of nausea and vomiting as well as diarrhea but this is also improving. He has remained hemodynamically stable. WBC is 10.5 today. Review of systems otherwise negative. Objective Data Objective Data Vital Signs: Vital Signs Temp Pulse Resp BP Pulse Ox O2 Del Method 97.6 F L 98 18 120/78 97 Room Air 09/15/25 08:50 09/15/25 08:50 09/15/25 08:50 09/15/25 08:50 09/15/25 08:50 09/15/25 08:50 Oxygen Delivery Method Room Air Weight: 173 lb 1.006 oz Body Mass Index (BMI) 28.8 Intake & Output: Intake and Output for Last 24 Hours 09/13/25 09/14/25 09/15/25 23:59 23:59 23:59 Intake Total 982.35 / 982.35 4834 / 4834 1000 / 1000 Balance 982.35 / 982.35 4834 / 4834 1000 / 1000 Lab / Micro Data 09/15/25 05:21 09/15/25 05:21 Labs: Laboratory Results - last 24 hr 09/14/25 18:49: ESR 4, C-React Prot Ext Range 292.00 H, Cortisol PM Sample 23.20 H 09/15/25 05:21: WBC 10.5, RBC 5.04, Hgb 14.8, Hct 43.1, MCV 85.5, MCH 29.4, MCHC 34.3, RDW Std Deviation 38.6, RDW Coeff of Fatoumata 12.4, Plt Count 206, MPV 10.6, Immature Gran % (Auto) 0.900, Neut % (Auto) 83.4 H, Lymph % (Auto) 8.3 L, [place] % (Auto) 5.6, Eos % (Auto) 0.9, Baso % (Auto) 0.9, Absolute Neuts (auto) 8.8 H, Absolute Lymphs (auto) 0.87, Nucleated RBC % 0, Differential Comment , Toxic Vacuolation 1+, Platelet Estimate ADEQUATE, RBC Morphology NORM C+C, Sodium 137, Potassium 3.8, Chloride 107, Carbon Dioxide 18.4 L, Anion Gap 12, BUN 9, Creatinine 0.95, Estim Creat Clear Calc 112.83, Est GFR (MDRD) Non-Af 113, B UN/Creatinine Ratio 9.5 L, Glucose 125 H, Calcium 8.6, Phosphorus 2.2 L, M agnesium 2.3 H, Total Bilirubin 0.55, AST 33, ALT 41, Alkaline Phosphatase 86, T otal Protein 5.8 L, Albumin 3.5, Globulin 2.3, Albumin/Globulin Ratio 1.5, NOEMY-1 Antibody TNP, Sm (Montiel) Antibody TNP, HARBOR ENGINEER Antibody TNP, Scl-70 Scleroderma Ab TNP, Antichromatin Antibodies TNP, Centromere B Antibody TNP Micro: Microbiology 09/14/25 04:45 Blood Culture (Wb) - Left Wrist Blood Culture - Preliminary 09/15/25 02:51 Stool Stool Lactoferrin - Final 09/14/25 07:35 Stool Enteric Bacteriology - Final Salmonella Sp. 09/14/25 07:35 Stool Clostridioides difficile (PCR) - Final Physical Exam Const alert, oriented x3 and well nourished Constitutional Narrative: in mild distress due to abdominal pain. Looks uncomfortable. General Appearance: cooperative HEENT normocephalic, head/scalp atraumatic and hearing grossly normal bilaterally; Negative for moist oral mucous membranes Eyes EOMs intact bilaterally and conjunctivae normal Eyes Narrative: No scleral icterus Neck supple and no JVD Neck Narrative: Trachea midline Lymph Lymphatic: no lymphedema noted Resp normal respiratory effort, normal air movement, no retractions, no use of accessory muscles and clear to auscultation bilaterally Auscultation: Negative for rales, rhonchi or wheezes Cardio regular rate, regular rhythm, S1 normal heart sound, S2 normal heart sound, no murmurs, no rub, no gallops and no clicks Cardio Narrative: Tachycardia has resolved. GI normal to inspection, nondistended, normoactive bowel sounds and soft to palpation GI Narrative: Minimal generalized tenderness. No guarding or rebound tenderness. Extremity normal capillary refill and no clubbing, cyanosis or edema Extremity Narrative: Pedal pulses are 2+ General Extremity: no tenderness to palpation of joints or extremities Skin General Skin Exam: no breakdown Neuro CN's II-XII intact bilaterally, moves all extremities and no focal motor deficits Speech: speech normal Motor Exam: general weakness Psych thought process normal, cooperative and affect normal Appearance: appropriate Assessment & Plan Assessment/Plan (1) Colitis: (2) Salmonella: PLAN: Plan #Acute colitis due to Salmonella gastroenteritis * Patient was admitted with complaint of nausea and vomiting and diarrhea * CT abdomen and pelvis showed diffuse uniform wall thickening and edema with fluid dimension of the terminal ileum, cecum and extending and proximal two thirds of the transverse colon with mild surrounding fat stranding and associated prominent ileocolic and mesenteric lymph nodes possibly inflammatory. * Stool enteric panel positive for Salmonella. C. difficile screen negative. * Patient's mother says she gave him some eggs from the chickens at home. Patient says he cooked the eggs before eating. The only other thing he ate recently was some stew his mother prepared over the weekend but other family members ate this and they did not have similar complaints. * on IV ceftriaxone. Gastroenterology consulted; appreciate rec's * BLood cultures growing gram positive cocci in clusters, speciation is pending. Will add on IV vancomycin coverage in the interim. * clear liquid diet and advance as tolerated. * * #Sepsis due to acute Salmonella gastroenteritis: As above. #History of adrenal insufficiency: On hydrocortisone and fludrocortisone. Currently on stress dose steroids due to underlying infection #BIENVENIDO: resolved. Cr is down to 0.95 #Non-anion gap metabolic acidosis: Likely due to severe diarrhea and BIENVENIDO: Improving #Hypomagnesemia: resolved. #History of eosinophilic esophagitis and GERD: On budesonide and IV PPI #History of multiple food allergies: Patient is allergic to fish containing products, milk and nuts as well as self fish derived products. 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 On Singulair DVT prophylaxis: Lovenox Charges/Coding Visit Charges Inpatient E&M: 67149 Subs Hosp L2
[2025-09-15] MEDS: Pantoprazole Sodium 40 MG in 0.9% Normal Saline (100mL MB+) 100 ML 300 MG IV ×2 (10:59→21:21)
--- NOTE | 2025-09-15 11:53 | PCM.RX.CS ---
Consult Antibiotic Management Pharmacy has been consulted to manage selected antibiotic: Vancomycin Type of Intervention Type of Consult: New start Suspected Infection Suspected Infection: Sepsis Labs Labs: Sodium 137 mmol/L (133-145) 09/15/25 05:21 Potassium 3.8 mmol/L (3.3-5.1) 09/15/25 05:21 Chloride 107 mmol/L (98-108) 09/15/25 05:21 Carbon Dioxide 18.4 mmol/L (21.0-32.0) L 09/15/25 05:21 Anion Gap 12 (5-15) 09/15/25 05:21 BUN 9 mg/dL (4-19) 09/15/25 05:21 Creatinine 0.95 mg/dL (0.70-1.20) 09/15/25 05:21 Est GFR (MDRD) Non-Af 113 (>60) 09/15/25 05:21 BUN/Creatinine Ratio 9.5 RATIO (10-20) L 09/15/25 05:21 Glucose 125 mg/dL (70-99) H 09/15/25 05:21 Microbiology Microbiology: Microbiology 09/14/25 04:45 Blood Culture (Wb) - Left Wrist Bacteria Detection (PCR) - Final Coag Negative Staph 09/14/25 04:45 Blood Culture (Wb) - Left Wrist Blood Culture - Preliminary 09/15/25 02:51 Stool Stool Lactoferrin - Final 09/14/25 07:35 Stool Enteric Bacteriology - Final Salmonella Sp. 09/14/25 07:35 Stool Clostridioides difficile (PCR) - Final Dosing Weight Weight used for dosin kg Estimated Creatinine Clearance Estimated Creatinine Clearance: 113 Goal Trough Goal Trough: 15-20 mcg/mL Pharmacy Plan for Drug Dosing Pharmacy Plan for Drug Dosing: Pharmacy Service will continue to monitor and adjust dosing as required. NEW START IV VANCOMYCIN Consulting Physician: Dr. Cassidy Indication: GPC Bacteremia Goal Trough: 15-20 SrCr: 0.95 CrCl: 113 Temp: 100.6 (09/14) Vancomycin Dose: 1000 mg Q8H with first dose @ 1999 Pending Level: 09/16/25 @ 1130 Date/Time Labs Ordered Labs to be done on [date and time ordered]: 09/16/25 @ 1130
[2025-09-15] MEDS: Albuterol 2.5 MG/3 ML VIAL.NEB. INHALATION ×2 (12:23→19:50)
[2025-09-15] MEDS: Vancomycin HCl 2,000 MG in 0.9% Normal Saline (500mL Bag) 500 ML 250 MG IV (12:38)
[2025-09-15] MEDS: Budesonide Respules 0.5 MG/2 ML AMPUL.NEB. INHALATION (19:49)
[2025-09-15] MEDS: Vancomycin HCl 1,000 MG in 0.9% Normal Saline (250mL Bag) 250 ML 250 MG IV (20:47)
[2025-09-15] MEDS: 0.9% Saline Lock 10 ML Syringe IV (21:01)
[2025-09-16] VITALS (9 sets, daily range): BP systolic 116–123; BP diastolic 76–83; PULSE 74–102; RESP 14–18; TEMP 36.8–37.6; O2SAT 97–100
[2025-09-16] MEDS: HYDROmorphone 0.5 MG/0.5 ML SYRINGE IV ×2 (03:33→10:25)
[2025-09-16] MEDS: 0.9% Saline Lock 10 ML Syringe IV ×2 (03:33→20:42)
[2025-09-16] MEDS: Vancomycin HCl 1,000 MG in 0.9% Normal Saline (250mL Bag) 250 ML 250 MG IV (03:36)
[2025-09-16] MEDS: Albuterol 2.5 MG/3 ML VIAL.NEB. INHALATION ×3 (06:52→20:12)
[2025-09-16] MEDS: Budesonide Respules 0.5 MG/2 ML AMPUL.NEB. INHALATION ×2 (06:52→20:12)
[2025-09-16 08:58] LABS: Hematocrit 38.1 % (40-54); Hemoglobin 13.5 g/dL (13.0-16.5); Immature Granulocytes Count 0.170 X10^3/uL (0.0-0.0); Mean Corp Hgb Conc 35.4 g/dL (32-36); Mean Corpuscular Volume 84.7 fL (80-94); Mean Platelet Vol. 10.6 fl (6.2-12.0); NRBC Flagged by Analyzer 0 % (0-5); POSITIVE MORPHOLOGY YES; Platelet Count 197 K/mm3 (150-450); RBC Distribution Width CV 12.5 % (11.6-14.6); RBC Distribution Width SD 37.9 fl (35.1-43.9); Red Blood Count 4.50 M/mm3 (4.6-6.2); White Blood Count 9.3 K/mm3 (4.4-11.0)
[2025-09-16 09:08] LABS: Differential Indicated SCAN CRITERIA MET
[2025-09-16 09:29] LABS: Anion Gap 9 (5-15); BUN 9 mg/dL (4-19); BUN/Creat Ratio 10.4 RATIO (10-20); Calcium,Total 8.7 mg/dL (7.6-11.0); Carbon Dioxide 25.5 mmol/L (21.0-32.0); Chloride 107 mmol/L (98-108); Estimated Creatinine Clearance 126.11 ml/min (50-250); Glucose 107 mg/dL (70-99); Potassium 3.2 mmol/L (3.3-5.1)
[2025-09-16] MEDS: Fluticasone 0.05% 1 SPRAY NASAL.SRY 4 SPRAY NASAL (09:55)
[2025-09-16] MEDS: Pantoprazole Sodium 40 MG in 0.9% Normal Saline (100mL MB+) 100 ML 300 MG IV ×2 (09:56→20:37)
--- NOTE | 2025-09-16 13:36 | PN_ITS ---
Subjective Subjective Patient seen and examined. He still has some abdominal pain especially with eating. His stool is gradually becoming formed. Objective Data Objective Data Vital Signs: Vital Signs Temp Pulse Resp BP Pulse Ox O2 Del Method 99.3 F H 102 H 18 116/76 98 Room Air 09/16/25 09:20 09/16/25 12:28 09/16/25 12:28 09/16/25 09:20 09/16/25 09:20 09/16/25 09:20 Oxygen Delivery Method Room Air Weight: 173 lb 1.006 oz Body Mass Index (BMI) 28.8 Intake & Output: Intake and Output for Last 24 Hours 09/14/25 09/15/25 09/16/25 23:59 23:59 23:59 Intake Total 4834 / 4834 2660 / 2660 420 / 420 Balance 4834 / 4834 2660 / 2660 420 / 420 Lab / Micro Data 09/16/25 08:41 09/16/25 08:41 Labs: Laboratory Results - last 24 hr 09/16/25 08:41: WBC 9.3, RBC 4.50 L, Hgb 13.5, Hct 38.1 L, MCV 84.7, MCH 30.0, MCHC 35.4, RDW Std Deviation 37.9, RDW Coeff of Fatoumata 12.5, Plt Count 197, MPV 10.6, Immature Gran % (Auto) 1.800 H, Neut % (Auto) 76.3 H, Lymph % (Auto) 12.6 L, [place] % (Auto) 8.7, Eos % (Auto) 0.1, Baso % (Auto) 0.5, Absolute Neuts (auto) 7.1, Absolute Lymphs (auto) 1.17, Nucleated RBC % 0, Sodium 141, Potassium 3.2 L , Chloride 107, Carbon Dioxide 25.5, Anion Gap 9, BUN 9, Creatinine 0.85, Estim Creat Clear Calc 126.11, Est GFR (MDRD) Non-Af 122, BUN/Creatinine Ratio 10.4, G lucose 107 H, Calcium 8.7 Micro: Microbiology 09/14/25 04:50 Blood Culture (Wb) - Anticubital Left Blood Culture - Preliminary No growth in 48 hours. 09/14/25 04:45 Blood Culture (Wb) - Left Wrist Bacteria Detection (PCR) - Final Coag Negative Staph 09/14/25 04:45 Blood Culture (Wb) - Left Wrist Blood Culture - Preliminary Coag Negative Staph 09/15/25 02:51 Stool Stool Lactoferrin - Final 09/14/25 07:35 Stool Enteric Bacteriology - Final Salmonella Sp. 09/14/25 07:35 Stool Clostridioides difficile (PCR) - Final Physical Exam Const alert, oriented x3 and well nourished Constitutional Narrative: looks much better today General Appearance: cooperative HEENT normocephalic, head/scalp atraumatic and hearing grossly normal bilaterally; Negative for moist oral mucous membranes Eyes EOMs intact bilaterally and conjunctivae normal Eyes Narrative: No scleral icterus Neck supple and no JVD Neck Narrative: Trachea midline Lymph Lymphatic: no lymphedema noted Resp normal respiratory effort, normal air movement, no retractions, no use of accessory muscles and clear to auscultation bilaterally Cardio regular rate, regular rhythm, S1 normal heart sound, S2 normal heart sound and no murmurs Cardio Narrative: mild tachycardia GI normal to inspection, nondistended, normoactive bowel sounds and soft to palpation Extremity normal capillary refill and no clubbing, cyanosis or edema Extremity Narrative: Pedal pulses are 2+ General Extremity: no tenderness to palpation of joints or extremities Skin General Skin Exam: no breakdown Neuro CN's II-XII intact bilaterally, moves all extremities and no focal motor deficits Speech: speech normal Motor Exam: general weakness Psych thought process normal, cooperative and affect normal Appearance: appropriate Assessment & Plan Assessment/Plan (1) Colitis: (2) Salmonella: PLAN: Plan #Acute colitis due to Salmonella gastroenteritis * Patient was admitted with complaint of nausea and vomiting and diarrhea * CT abdomen and pelvis showed diffuse uniform wall thickening and edema with fluid dimension of the terminal ileum, cecum and extending and proximal two thirds of the transverse colon with mild surrounding fat stranding and associated prominent ileocolic and mesenteric lymph nodes possibly inflammatory. * Stool enteric panel positive for Salmonella. C. difficile screen negative. * Patient's mother says she gave him some eggs from the chickens at home. Patient says he cooked the eggs before eating. The only other thing he ate recently was some stew his mother prepared over the weekend but other family members ate this and they did not have similar complaints. * on IV ceftriaxone. Gastroenterology consulted; appreciate rec's * BLood cultures growing coag negative staph, likely skin contaminant. Vancomycin therefore dc'd * stool is becoming more formed. * clear liquid diet and advance as tolerated. * #Sepsis due to acute Salmonella gastroenteritis: As above. #History of adrenal insufficiency: On hydrocortisone and fludrocortisone. Currently on stress dose steroids due to underlying infection #Hypokalemia: K is 3.2. Will replace and trend. #BIENVENIDO: resolved. #Non-anion gap metabolic acidosis:resolved. #Hypomagnesemia: resolved. #History of eosinophilic esophagitis and GERD: On budesonide and IV PPI #History of multiple food allergies: Patient is allergic to fish containing products, milk and nuts as well as self fish derived products. 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 On Singulair DVT prophylaxis: Lovenox Charges/Coding Visit Charges Inpatient E&M: 20151 Subs Hosp L2
--- NOTE | 2025-09-16 16:28 | CHAPLAIN ---
Type of Pastoral Visit _x__ Initial Visit ___ Follow-up Visit ___ On-call Visit ___ General Patient Visit ___ Spiritual Assessment ___ Family Conference ___ Bereavement ___ Rapid Response ___ Code Blue ___ Other (describe below) Pastoral Care Referral From _x__ Patient ___ Family ___ Nurse ___ Physician ___ Cartoon Artist ___ Nut Former ___ Other (describe below) Sacrament/Intervention _x__ Active listening ___ Anointing ___ Catholic ___ Bereavement ___ Communion _x__ Cora exploration ___ ___ Life review _x__ Prayer ___ Reconciliation ___ Sacrament of Sick _x__ Supportive presence ___ Wedding ___ Other (describe below) Pastoral Comments patient is very welcoming and comes out into hallway to talk with this technical operations vice president since family members are in the room and sleeping; pt is open to describe his experience and presents self as content and hopeful through the illness; pt understands that this is temporary and shares insights on how his cora is growing through the sickness and time in the hospital; pt welcomes someone to talk with and a prayer
--- NOTE | 2025-09-16 18:28 | PN_ITS ---
Progress Note The patient is a 29-year-old male with a history of adrenal insufficiency requiring chronic steroid therapy, currently on day 3 of hospitalization for acute?Salmonella?enterocolitis. * GI:?Patient reports having more formed stools and has been keeping down a regular diet. He had 5 stools today. * Constitutional:?Patient continues to be afebrile. * Current Medications:?Remains on Zosyn therapy and was started on cholestyramine twice a day. * Social/Family:?His mother and father are currently at the bedside. * Antibiotic History:?Initially started on vancomycin and Zosyn for sepsis. Vancomycin was stopped after blood cultures returned positive for?Staph epidermidis Physical Exam Const alert, oriented x3, no apparent distress and healthy appearing General Appearance: cooperative GI normal to inspection, nondistended, normoactive bowel sounds, soft to palpation, non-tender and non-distended Percussion: normal to percussion Rectal Exam: deferred Assessment & Plan Assessment/Plan (1) Salmonella: (2) Colitis: (3) Leukocytosis: PLAN: Plan The patient presents with acute colitis and gastroenteritis symptoms. The stool studies confirmed?Salmonella?as the causative organism. The CT findings are consistent with inflammation of the terminal ileum and colon (ileocolitis), likely related to the bacterial infection. The patient's history of adrenal insufficiency is a significant comorbidity that required stress-dose steroids and necessitates careful management in the setting of acute illness and potential hemodynamic instability. The differential diagnosis for the CT findings includes inflammatory bowel disease (IBD), though the acute onset of symptoms and positive?Salmonella?culture make infectious colitis the most probable cause at this time. Gastroenterology has been consulted to help differentiate between infectious colitis and IBD and assist with management. The source of the infection is likely the home eggs, despite the patient cooking them, or potentially other food sources not clearly identified. Plan * Monitoring:?Continue close monitoring of vital signs and clinical status, especially given the history of adrenal insufficiency. * Infectious Disease:?Continue current treatment with IV Zosyn for?Salmonella ?infection. Monitor response to antibiotics. * There is a possibility that Salmonella could trigger inflammatory bowel disease. Typically , Crohn's disease does not present with entero-pancolitis. It does have mesenteric lymphadenopathy and typically there is no rectal involvement. It would be very difficult to determine while there is a active Salmonella infection.I can order ESR, CRP, IBD SGI. MRI enterography would not be helpful at this time. Also, biopsies would not be helpful with an acute infection. He can have mesalamine 1.6 g 3 times daily for acute inflammation of the colon. * Endocrinology:?Consult Endocrinology for management of adrenal insufficiency and appropriate stress-dose steroid regimen during acute illness. * Supportive Care:?Continue supportive care with IV fluids for hydration, antidiarrheals as appropriate (caution due to infection), and pain management. 09/16/2025 * Acute?Salmonella?enterocolitis:?Improving clinically with more formed stools and tolerating a regular diet. Stool frequency has decreased (5 stools today, improvement implied). * Sepsis:?Blood cultures positive for?Staph epidermidis, vancomycin discontinued. Patient afebrile and remains on Zosyn (Zosyn not effective for? Staph epidermidis, further management may be needed depending on the clinical significance of the culture result). * Adrenal Insufficiency:?On chronic steroid therapy (specific steroid and dose not provided), requiring ongoing management. * Medication Management:?Started on cholestyramine 2x/day, which appears to be effective in managing diarrhea. Plan * Infectious Disease: * Continue Zosyn therapy for?Salmonella?enterocolitis. * Monitor clinical status closely, continue supportive care. * Staph epidermidis?in blood cultures: Assessed for true bacteremia versus contamination. * Continue cholestyramine 2x/day. Monitor stool frequency and consistency; advance diet as tolerated. * Continue chronic steroid therapy for adrenal insufficiency. Verify current dose is adequate for sick day coverage in the hospital setting. * Monitoring:?Monitor vitals, ins and outs, daily weights, and lab results. * Disposition:?Continue to monitor progress toward discharge pending clinical improvement and resolution of infectious issues. Visit Charges Inpatient E&M: 52169 Subs Hosp L3
[2025-09-17 03:00] VITALS: PULSE 76
[2025-09-17 04:48] VITALS: BP 128/78; PULSE 65; RESP 15; TEMP 36.8; O2SAT 99
[2025-09-17 05:33] LABS: Hematocrit 37.4 % (40-54); Hemoglobin 12.6 g/dL (13.0-16.5); Immature Granulocytes Count 0.190 X10^3/uL (0.0-0.0); Mean Corp Hgb Conc 33.7 g/dL (32-36); Mean Corpuscular Volume 87.8 fL (80-94); Mean Platelet Vol. 10.8 fl (6.2-12.0); NRBC Flagged by Analyzer 0 % (0-5); Platelet Count 211 K/mm3 (150-450); RBC Distribution Width CV 12.4 % (11.6-14.6); RBC Distribution Width SD 40.0 fl (35.1-43.9); Red Blood Count 4.26 M/mm3 (4.6-6.2); White Blood Count 8.3 K/mm3 (4.4-11.0)
[2025-09-17 06:20] LABS: Anion Gap 13 (5-15); BUN 7 mg/dL (4-19); BUN/Creat Ratio 8.6 RATIO (10-20); Calcium,Total 8.4 mg/dL (7.6-11.0); Carbon Dioxide 21.0 mmol/L (21.0-32.0); Chloride 108 mmol/L (98-108); Estimated Creatinine Clearance 141.04 ml/min (50-250); Glucose 101 mg/dL (70-99); Potassium 3.4 mmol/L (3.3-5.1)
[2025-09-17] MEDS: Albuterol 2.5 MG/3 ML VIAL.NEB. INHALATION ×2 (07:05→12:57)
[2025-09-17] MEDS: Budesonide Respules 0.5 MG/2 ML AMPUL.NEB. INHALATION (07:05)
[2025-09-17 07:06] VITALS: PULSE 80; RESP 16; O2SAT 95
[2025-09-17 09:13] VITALS: BP 123/75; PULSE 76; RESP 18; TEMP 36.8; O2SAT 97
[2025-09-17] MEDS: 0.9% Saline Lock 10 ML Syringe IV (09:17)
[2025-09-17] MEDS: Pantoprazole Sodium 40 MG in 0.9% Normal Saline (100mL MB+) 100 ML 300 MG IV (09:17)
[2025-09-17] MEDS: Fluticasone 0.05% 1 SPRAY NASAL.SRY 4 SPRAY NASAL (09:18)
--- NOTE | 2025-09-17 12:20 | PCM.DC ---
Discharge Instructions DC O2, CPAP, BIPAP needs Home O2 Discharge instructions: No Dressing / Incision Discharge Activity: Return to Normal Activity Weight Bearing Status: Weight bearing as tolerated Dressing / Incision Call your doctor if you observe: Fever of 101 or Higher, Shortness of breath, Dizziness, Swelling in the ankles and Chest pain Follow Up Care Test Results: Test results from this visit will be discussed in further detail at your follow-up appointment, if applicable. 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 [place] within 1-2 weeks Discharge Orders/Prescriptions Prescriptions: New ciprofloxacin HCl 500 mg tablet 500 mg PO BID Qty: 10 0RF oxycodone 5 mg tablet 5 mg PO Q6H PRN (Reason: pain) 3 Days Qty: 12 0RF loperamide 2 mg tablet 2 mg PO Q6H PRN (Reason: loose stool) Qty: 30 0RF Continued cetirizine [24Hour Allergy] 10 mg tablet 10 mg PO DAILY montelukast 10 mg tablet 10 mg PO QPM mometasone 50 mcg/actuation spray,non-aerosol 4 spray INTRANASAL DAILY Patient Comments: USE 4 SPRAYS INTRANASALLY DAILY (2 SPRAYS IN EACH NOSTRIL) finasteride 1 mg tablet 1 mg PO DAILY fluticasone furoate-vilanterol [Breo Ellipta] 200-25 mcg/dose blister with device 1 inh INHALATION DAILY hydrocortisone 5 mg tablet 10 mg PO DAILY hydrocortisone 5 mg tablet 5 mg PO 1400 pantoprazole 40 mg tablet,delayed release (DR/EC) 40 mg PO BID minoxidil 2.5 mg tablet 1.25 mg PO DAILY Referrals / Follow Up: Larisa Horta MD [Med Staff - Active Staff, Internal Medicine] - Within 2 Weeks Referral Note: see to establish PCP care Care Physician,No Primary [Primary Care Provider, Medical] Disposition Disposition (needs filled in before D/C Order can be placed): Home, Self Care
--- NOTE | 2025-09-17 12:21 | PCM.DC.SUM ---
Providers Date of Admission: 09/14/25 Date of Discharge: 09/17/25 Primary Care Physician: Emmy Primary Care Phys Consultations 09/14/25 12:14 Consult: Gastroenterology Routine Consulting Provider: Ralph Gastro[facility] Reason for Consult: severe colitis EMERGENT Consult: No MD Notified: Yes Date Notified: 09/14/25 Time Notified: 12:14 Method of Notification: Text Reason For Visit: N/V/D WITH BIENVENIDO Diagnosis Discharge Diagnosis (1) Salmonella: Status: Acute Code(s): A02.9 - Salmonella infection, unspecified (2) Colitis: Status: Acute Code(s): K52.9 - Noninfective gastroenteritis and colitis, unspecified (3) Leukocytosis: Status: Acute Code(s): D72.829 - Elevated white blood cell count, unspecified Plan #Acute colitis due to Salmonella gastroenteritis Patient was admitted with complaint of nausea and vomiting and diarrhea CT abdomen and pelvis showed diffuse uniform wall thickening and edema with fluid dimension of the terminal ileum, cecum and extending and proximal two thirds of the transverse colon with mild surrounding fat stranding and associated prominent ileocolic and mesenteric lymph nodes possibly inflammatory. Stool enteric panel positive for Salmonella. C. difficile screen negative. Patient's mother says she gave him some eggs from the chickens at home. Patient says he cooked the eggs before eating. The only other thing he ate recently was some stew his mother prepared over the weekend but other family members ate this and they did not have similar complaints. on IV ceftriaxone. Gastroenterology consulted; appreciate rec's BLood cultures growing coag negative staph, likely skin contaminant. Vancomycin therefore dc'd stool is becoming more formed. clear liquid diet and advance as tolerated. #Sepsis due to acute Salmonella gastroenteritis: As above. #History of adrenal insufficiency: On hydrocortisone and fludrocortisone. Currently on stress dose steroids due to underlying infection #Hypokalemia: K is 3.2. Will replace and trend. #BIENVENIDO: resolved. #Non-anion gap metabolic acidosis:resolved. #Hypomagnesemia: resolved. #History of eosinophilic esophagitis and GERD: On budesonide and IV PPI #History of multiple food allergies: Patient is allergic to fish containing products, milk and nuts as well as self fish derived products. 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 On Singulair DVT prophylaxis: Lovenox Medications at Discharge Home Medications cetirizine 10 mg tablet (24Hour Allergy) 10 mg PO DAILY allergies 09/14/25 finasteride 1 mg tablet 1 mg PO DAILY urine flow 09/14/25 fluticasone furoate 200 mcg-vilanterol 25 mcg/dose inhalation powder (Breo Ellipta) 1 inh inhalation DAILY asthma 09/14/25 hydrocortisone 5 mg tablet 5 mg PO 1400 adrenal insufficiency 09/14/25 hydrocortisone 5 mg tablet 10 mg PO DAILY adrenal insufficiency 09/14/25 minoxidil 2.5 mg tablet 1.25 mg PO DAILY hairloss 09/14/25 mometasone 50 mcg/actuation nasal spray 4 spray intranasal DAILY allergies 09/14/25 montelukast 10 mg tablet 10 mg PO QPM allergies 09/14/25 pantoprazole 40 mg tablet,delayed release 40 mg PO BID GERD 09/14/25 ciprofloxacin HCl 500 mg tablet 500 mg PO BID #10 tabs 09/17/25 loperamide 2 mg tablet 2 mg PO Q6H PRN loose stool #30 tabs 09/17/25 oxycodone 5 mg tablet 5 mg PO Q6H PRN pain 3 days #12 tabs 09/17/25 Hospital Course Operations None Procedures None Summary of Care Provided Minutes Spent on Discharge: 42 Hospital Course: Patient is a 29-year-old male with a past medical history as outlined was admitted to the ED on 09/14/2025 with a complaint of intractable nausea and vomiting as well as profuse diarrhea. Patient had a history of adrenal insufficiency and was on hydrocortisone at baseline. He said he had eaten some eggs which he got from his parents checking and had cooked for eggs himself. He has subsequently started having the symptoms. On admission labs showed leukocytosis with WBC of 13.9. Chemistry was significant for mild metabolic acidosis with bicarb of 17.4 and creatinine was 1.82 indicating of BIENVENIDO. Lactic acid was not elevated. Magnesium was low at 1.3. Liver function was normal. CT of the abdomen and pelvis showed diffuse uniform wall thickening and edema and fluid distention of the terminal ileum cecum, ascending and proximal two thirds of the transverse colon with mild surrounding fat stranding and prominent ileocolic and mesenteric lymph nodes that was thought to be inflammatory. He was admitted and managed for acute gastroenteritis which was thought to be of infectious pathology. He was hydrated with fluids and started on IV antibiotics. Gastroenterology was consulted due to the extensive colitis with concern for possible inflammatory bowel disease. Stool enteric panel was positive for Salmonella. C. difficile was negative. Antibiotics were therefore narrowed down from IV Zosyn to IV ceftriaxone. His diarrhea gradually improved and abdominal pain resolved. He was able to tolerate a diet. He was discharged home on 09/17/2025 on p.o. ciprofloxacin for a 5-day course in addition to the antibiotics he had already received. He is follow-up with his primary care doctor and to follow-up with gastroenterology on outpatient basis 2. He is already established with his [facility] he met [facility] and so was counseled to follow-up with them as this was his wish. Patient seen and examined prior to discharge. His mother was by his bedside. He had no active complaints and felt much better. He had an uneventful night. Review of systems otherwise negative. Labs and vitals reviewed. Home medication reviewed and reconciled. He was given a prescription for p.o. loperamide in addition to the antibiotics and p.o. oxycodone 5 mg every 6 hours as needed for total of 12 tablets for 3 days. OARRS score was checked and no red flags were seen. Physical Exam Const alert, oriented x3, no apparent distress and well nourished General Appearance: cooperative and comfortable HEENT normocephalic, head/scalp atraumatic, hearing grossly normal bilaterally and moist oral mucous membranes Mouth: oral and palatal mucosa normal Eyes EOMs intact bilaterally and conjunctivae normal Neck supple and no JVD Neck Narrative: Trachea midline Lymph Lymphatic: no lymphedema noted Resp normal respiratory effort, normal air movement, no retractions, no use of accessory muscles and clear to auscultation bilaterally Resp Narrative: Mild tachypnea Cardio regular rate, regular rhythm, S1 normal heart sound, S2 normal heart sound and no murmurs GI normal to inspection, nondistended, normoactive bowel sounds and soft to palpation Extremity normal capillary refill and no clubbing, cyanosis or edema Extremity Narrative: Pedal pulses are 2+ General Extremity: no tenderness to palpation of joints or extremities Skin no rashes or lesions noted General Skin Exam: no breakdown Neuro oriented x3, CN's II-XII intact bilaterally, moves all extremities and no focal motor deficits Speech: speech normal Motor Exam: general weakness Psych thought process normal, cooperative and affect normal Appearance: appropriate Weight / BMI Weight Weight: 173 lb 1.006 oz Body Mass Index (BMI) 28.8 ABG / Lab / Microbiology Data 09/17/25 04:53 09/17/25 04:53 Laboratory: Laboratory Results - last 24 hr 09/17/25 04:53: WBC 8.3, RBC 4.26 L, Hgb 12.6 L, Hct 37.4 L, MCV 87.8, MCH 29.6, MCHC 33.7, RDW Std Deviation 40.0, RDW Coeff of Fatoumata 12.4, Plt Count 211, MPV 10.8, Immature Gran % (Auto) 2.300 H, Neut % (Auto) 75.8 H, Lymph % (Auto) 13.4 L, Citrus % (Auto) 7.9, Eos % (Auto) 0.0, Baso % (Auto) 0.6, Absolute Neuts (auto) 6.3, Absolute Lymphs (auto) 1.11, Nucleated RBC % 0, Sodium 141, Potassium 3.4, Chloride 108, Carbon Dioxide 21.0, Anion Gap 13, BUN 7, Creatinine 0.76, Estim Creat Clear Calc 141.04, Est GFR (MDRD) Non-Af 127, BUN/Creatinine Ratio 8.6 L, Glucose 101 H, Calcium 8.4 Microbiology: Microbiology 09/14/25 04:50 Blood Culture (Wb) - Anticubital Left Blood Culture - Preliminary No growth in 48 hours. 09/14/25 04:45 Blood Culture (Wb) - Left Wrist Bacteria Detection (PCR) - Final Coag Negative Staph 09/14/25 04:45 Blood Culture (Wb) - Left Wrist Blood Culture - Preliminary Coag Negative Staph 09/15/25 02:51 Stool Stool Lactoferrin - Final 09/14/25 07:35 Stool Enteric Bacteriology - Final Salmonella Sp. 09/14/25 07:35 Stool Clostridioides difficile (PCR) - Final D/C Instructions Discharge Activity: Return to Normal Activity Weight Bearing Status: Weight bearing as tolerated Call your doctor if you observe: Fever of 101 or Higher, Shortness of breath, Dizziness, Swelling in the ankles and Chest pain DC O2, CPAP, BIPAP Needs Home O2 Discharge instructions: No DC home with Oxygen: No Meaningful Use Info Meaningful Use Meaningful Use Diagnoses (Choose all that apply): None applicable Discharge Plan Admission Admit Date/Time: 09/14/25 04:41 Primary Reason for Your Visit: salmonella gastroenteritis Attending Provider: Eleanor Cassidy Primary Care Provider: Care Physician,No Primary Consulting Providers: Yadi Yen; Tino Lauren; Christiano,Bartolo; Arely Lovelace; Gissell Davenport; Celsa Aburto Instructions Patient Instructions: Salmonella Culture (Stool), Salmonella Dx Sx Tx, ED Dane Gastroenteritis?Adult Additional Instructions / Restrictions: follow up with your [facility] in [place] within 1-2 weeks Discharge Orders/Prescriptions Prescriptions: New ciprofloxacin HCl 500 mg tablet 500 mg PO BID Qty: 10 0RF oxycodone 5 mg tablet 5 mg PO Q6H PRN (Reason: pain) 3 Days Qty: 12 0RF loperamide 2 mg tablet 2 mg PO Q6H PRN (Reason: loose stool) Qty: 30 0RF Continued cetirizine [24Hour Allergy] 10 mg tablet 10 mg PO DAILY montelukast 10 mg tablet 10 mg PO QPM mometasone 50 mcg/actuation spray,non-aerosol 4 spray INTRANASAL DAILY Patient Comments: USE 4 SPRAYS INTRANASALLY DAILY (2 SPRAYS IN EACH NOSTRIL) finasteride 1 mg tablet 1 mg PO DAILY fluticasone furoate-vilanterol [Breo Ellipta] 200-25 mcg/dose blister with device 1 inh INHALATION DAILY hydrocortisone 5 mg tablet 10 mg PO DAILY hydrocortisone 5 mg tablet 5 mg PO 1400 pantoprazole 40 mg tablet,delayed release (DR/EC) 40 mg PO BID minoxidil 2.5 mg tablet 1.25 mg PO DAILY Referrals / Follow Up: Larisa Horta MD [Med Staff - Active Staff, Internal Medicine] - Within 2 Weeks Referral Note: see to establish PCP care Care Physician,No Primary [Primary Care Provider, Medical] Disposition Disposition (needs filled in before D/C Order can be placed): Home, Self Care Charges/Coding Visit Charges Inpatient E&M: 18289 Disch Hosp >30min
[2025-09-17 12:58] VITALS: PULSE 90; RESP 16
--- NOTE | 2025-09-17 13:05 | CASEMGMT ---
Patient has order for discharge. RN CM in to discuss needs at discharge. Patient denies needs or help at discharge. Patient had no further questions or concerns.
--- NOTE | 2025-09-17 13:24 | PHA.DC_ITS ---
Pharmacy [facility] Counseling Pharmacy Service has performed discharge medication reconciliation and counseling for this patient. 1. CIPROFLOXACIN 500MG PO BID X 5 DAYS 2. LOPERAMIDE 2MG PO Q6H PRN LOOSE STOOL 3. OXYCODONE 5MG PO Q6H PRN PAIN The patient's discharge medication list was reviewed for discrepancies and discrepancies were resolved. The patient was counseled on the following discharge medications and changes in medications for homegoing were reviewed. The Reason for Use, instructions for use, and potential side effects were reviewed for all new medications. The patient's questions regarding all of their medications were answered. The patient was able to verbally demonstrate an understanding of their discharge medications. Patient counseled by graduate studentIsrael. Medications at Discharge Home Medications cetirizine 10 mg tablet (24Hour Allergy) 10 mg PO DAILY allergies 09/14/25 finasteride 1 mg tablet 1 mg PO DAILY urine flow 09/14/25 fluticasone furoate 200 mcg-vilanterol 25 mcg/dose inhalation powder (Breo Ellipta) 1 inh inhalation DAILY asthma 09/14/25 hydrocortisone 5 mg tablet 5 mg PO 1400 adrenal insufficiency 09/14/25 hydrocortisone 5 mg tablet 10 mg PO DAILY adrenal insufficiency 09/14/25 minoxidil 2.5 mg tablet 1.25 mg PO DAILY hairloss 09/14/25 mometasone 50 mcg/actuation nasal spray 4 spray intranasal DAILY allergies 09/14/25 montelukast 10 mg tablet 10 mg PO QPM allergies 09/14/25 pantoprazole 40 mg tablet,delayed release 40 mg PO BID GERD 09/14/25 ciprofloxacin HCl 500 mg tablet 500 mg PO BID #10 tabs 09/17/25 loperamide 2 mg tablet 2 mg PO Q6H PRN loose stool #30 tabs 09/17/25 oxycodone 5 mg tablet 5 mg PO Q6H PRN pain 3 days #12 tabs 09/17/25
[2025-09-17 14:03] VITALS: BP 126/81; PULSE 104; RESP 16; TEMP 36.9; O2SAT 99
[2025-09-22 14:08] LABS: ACCA 8 units (0-90); ALCA 52 units (0-60); AMCA 22 units (0-100); Cytoplasmic Ab (C-ANCA) <1:20 titer (Neg:<1:20); IgG, Quant 668 mg/dL (603-1613); Immunoglobulin A 109 mg/dL (90-386); Immunoglobulin G, Subclass 1 240 mg/dL (248-810); Immunoglobulin G, Subclass 2 247 mg/dL (130-555); Immunoglobulin G, Subclass 3 18 mg/dL (15-102); Immunoglobulin G, Subclass 4 50 mg/dL (2-96); Immunoglobulin M 137 mg/dL (20-172); Pancreatic Elastase, Fecal 4 (>200); Perinuclear Ab (P-ANCA) <1:20 titer (Neg:<1:20)
== END 2025-09-17 14:48 | disposition home or self-care (01) | DRG 872 ==
LOC: ED 22:26 → PCU 09-14 06:10
PROVIDERS: Internal Medicine Gastroenterology; Specialist/Technologist Athletic Trainer; Admitting Provider Internal Medicine; Emergency Provider Emergency Medicine; Visit Provider Student in an Organized Health Care Education/Training Program
DX: A02.1 Salmonella sepsis (principal); A02.0 Salmonella enteritis; N17.9 Acute kidney failure, unspecified; E27.40 Unspecified adrenocortical insufficiency; N13.8 Other obstructive and reflux uropathy; J45.909 Unspecified asthma, uncomplicated; E83.42 Hypomagnesemia; K21.00 Gastro-esophageal reflux disease with esophagitis, without bleeding; E86.0 Dehydration; E87.6 Hypokalemia; L64.8 Other androgenic alopecia; N40.1 Benign prostatic hyperplasia with lower urinary tract symptoms; Z91.013 Allergy to seafood; Z91.0110 Allergy to milk products, unspecified; Z91.018 Allergy to other foods; Z79.51 Long term (current) use of inhaled steroids; Z79.52 Long term (current) use of systemic steroids; Z79.899 Other long term (current) drug therapy
CPT/HCPCS: 36415; 74176; 80048; 80053; 80076; 82533; 82653; 82705; 82784; 82785; 82787; 83516; 83605; 83630; 83690; 83735; 83993; 84100; 84145; 84443; 85025; 85652; 86036; 86037; 86140; 86225; 86255; 86671; 87040; 87149; 87493; 87506; 94640; 94668; 99284; A4216; J2405